=== PATIENT | male | born 1940 | race Caucasian/White ===

== ENCOUNTER 2023-05-27 13:52 | Emergency (ER) | payer OTHER, SELFPAY ==
[2023-05-27 14:01] VITALS: BP 96/66
[2023-05-27 14:19] LABS: % Basophils 0.4 % (0-2); % Eosinophils 0.5 % (0-6); % Immature Granulocytes 0.4 % (0-0.5); % Lymphocytes 13.6 % (20.5-51.1); % Monocytes 7.8 % (1.7-9.3); % Neutrophils 77.3 % (42.2-75.2); Absolute Eosinophils 0.1 10^3/uL (0-0.7); Absolute Lymphocytes 1.2 10^3/uL (1.2-3.4); Absolute Monocytes 0.7 10^3/uL (0.1-0.6); Hematocrit 40.6 % (39.0-52.0); Hemoglobin 13.6 g/dL (13.0-18.0); Mean Corp Hgb Conc. 33.5 g/dL (33.0-37.0); Mean Corpuscular Hgb 31.1 pg (27.0-31.0); Mean Corpuscular Volume 92.9 fL (80.0-94.0); Mean Platelet Volume 10.4 fL (7.4-10.4); Nucleated Red Blood Cells % 0 % (-); Platelet Count 159 10^3/uL (130-400); Red Blood Cell Count 4.37 10^6/uL (4.70-6.10); Red Cell Dist. Width 15.1 % (11.5-14.5); White Blood Cell Count 9.1 10^3/uL (4.8-10.8)
[2023-05-27 14:34] LABS: ALT (SGPT) 66 U/L (0-50); AST (SGOT) 62 U/L (17-59); Alkaline Phosphatase 73 U/L (38-126); Blood Urea Nitrogen 41 mg/dl (9-20); Calcium 9.2 mg/dl (8.4-10.2); Carbon Dioxide 27 mmol/L (22-30); Chloride 104 mmol/L (98-107); Glucose 116 mg/dl (70-99); Potassium 4.6 mmol/L (3.5-5.1); Sodium 137 mmol/L (135-145); Total Bilirubin 0.9 mg/dl (0.2-1.3); Total Protein 7.3 g/dl (6.3-8.2); eGFR 31.23
[2023-05-27 14:40] LABS: Troponin I < 0.012 ng/ml
--- NOTE | 2023-05-27 15:31 | ED.GENMED ---
History of Present Illness
<Jackie Fung PA-C - Last Filed: 05/27/23 18:23>
General
Chief Complaint: Breathing Problem
Source: patient
Exam Limitations: none
Time Seen by Provider: 05/27/23 15:31
Nursing documentation reviewed up to this point in time: agreed with
Travel History
Have you had any contact with someone who has COVID-19?: No
Do you have any symptoms of coronavirus? Fever > 100 degrees, chills, cough, shortness of breath, sore throat, loss of taste or smell, muscle aches, or headache?: No
History of Present Illness
History of Present Illness:
89-year-old male with a past medical history of AAA status post repair, HTN, PAF on Eliquis, pacemaker presenting to the emergency department today with shortness of breath upon exertion, rapid heart rate, and low blood pressure for the past week.
Patient also has associated URI symptoms including cough and congestion. Patient states that he is normally very active and walks frequently, however now just when walking to the car, he feels very short of breath. He denies fevers or chills at
home. He denies syncopal episodes. He also has periods of dizziness that he walks too far. He denies waking up middle night with shortness of breath, leg swelling, chest pain. Patient denies back pain.
Past History
<VINCE Shelton Last Filed: 05/27/23 18:23>
Past History
ED Past Medical History: Arrthythmia (afib), HTN, Hypercholesterolemia and Other (AAA)
ED Past Surgical History: Cardiac (aaa s/p repair;)
Social History
Tobacco: Non-smoker
Alcohol: None
Drug: None
Personal: Single
Living: alone
Review of Systems
<Jackie Fung PA-C - Last Filed: 05/27/23 18:23>
Review of Systems
All Other Systems: ROS reviewed and negative except as documented in HPI and ROS
ABD/GI: Reports no symptoms
Skin: Reports no symptoms
<Isaac Muñiz DO - Last Filed: 05/27/23 16:54>
Review of Systems
Constitutional: Reports fatigue
Respiratory: Reports cough and trouble breathing
Cardiac: Reports no symptoms
Phy Exam
<Jackie Fung PA-C - Last Filed: 05/27/23 18:23>
Physical Exam
Physical Exam:
Vitals: Hypertensive, tachycardic
General: Patient is well-appearing and in no acute distress
Skin: Warm and dry, no rashes or lesions
Cardiac: Tachycardic, otherwise regular rhythm
Pulm: Normal respiratory effort, no wheezes, rales, rhonchi
Abdomen: No abdominal tenderness
Neuro: Awake and alert
<Isaac Muñiz DO - Last Filed: 05/27/23 16:54>
Physical Exam
Physical Exam:
Scores
<Jackie Fung PA-C - Last Filed: 05/27/23 18:23>
Heart Failure Risk
Heart Failure Risk Score: Not Applicable
Course
<Jackie Fung PA-C - Last Filed: 05/27/23 18:23>
Orders/Labs/Results
Orders:
Orders
05/27/23 13:58
ECG [Electrocardiogram (*1)] Urgent
Reason for Study: Shortness of Breath
05/27/23 14:04
Electrocardiogram (*1) Urgent
Reason for Study: Chest Pain
EKG- Treatment ONCE
05/27/23 14:11
Complete Blood Count/With Diff Urgent
Comprehensive Metabolic Panel Urgent
Troponin I Urgent
05/27/23 15:48
CR Chest - 2 Views Urgent
Comment:
Reason For Exam: shortness of breath
05/27/23 15:51
NT-proBNP Urgent
05/27/23 16:43
ECG [Electrocardiogram (*1)] Urgent
Reason for Study: Abnormal EKG
05/27/23 17:19
Electrocardiogram (*1) Urgent
Reason for Study: Other
Other Reason for Exam: pacemaker
05/27/23 17:20
EKG- Treatment ONCE
Abnormal Lab Results
05/27/23
14:11
RBC 4.37 L 10^6/uL
(4.70-6.10)
MCH 31.1 H pg
(27.0-31.0)
RDW 15.1 H %
(11.5-14.5)
Absolute Neuts (auto) 7.0 H 10^3/uL
(1.4-6.5)
Absolute Monos (auto) 0.7 H 10^3/uL
(0.1-0.6)
Neutrophils % 77.3 H %
(42.2-75.2)
Lymphocytes % 13.6 L %
(20.5-51.1)
BUN 41 H mg/dl
(9-20)
Creatinine 2.1 H mg/dL
(0.7-1.3)
Glucose 116 H mg/dl
(70-99)
AST 62 H U/L
(17-59)
ALT 66 H U/L
(0-50)
05/27/23 14:11
05/27/23 14:11
Vital Signs
Initial and Last Documented VS:
Initial Vital Signs
Pulse BP Pulse Ox
105 96/66 99
05/27/23 14:01 05/27/23 14:01 05/27/23 14:01
Last Documented Vital Signs
Pulse Resp BP Pulse Ox
70 19 93/59 99
05/27/23 17:56 05/27/23 17:56 05/27/23 17:56 05/27/23 17:56
<Isaac Muñiz, DO - Last Filed: 05/27/23 16:54>
Orders/Labs/Results
Orders:
Orders
05/27/23 13:58
ECG [Electrocardiogram (*1)] Urgent
Reason for Study: Shortness of Breath
05/27/23 14:04
Electrocardiogram (*1) Urgent
Reason for Study: Chest Pain
EKG- Treatment ONCE
05/27/23 14:11
Complete Blood Count/With Diff Urgent
Comprehensive Metabolic Panel Urgent
Troponin I Urgent
05/27/23 15:48
CR Chest - 2 Views Urgent
Comment:
Reason For Exam: shortness of breath
05/27/23 15:51
NT-proBNP Urgent
05/27/23 16:43
ECG [Electrocardiogram (*1)] Urgent
Reason for Study: Abnormal EKG
05/27/23 17:19
Electrocardiogram (*1) Urgent
Reason for Study: Other
Other Reason for Exam: pacemaker
05/27/23 17:20
EKG- Treatment ONCE
Abnormal Lab Results
05/27/23
14:11
RBC 4.37 L 10^6/uL
(4.70-6.10)
MCH 31.1 H pg
(27.0-31.0)
RDW 15.1 H %
(11.5-14.5)
Absolute Neuts (auto) 7.0 H 10^3/uL
(1.4-6.5)
Absolute Monos (auto) 0.7 H 10^3/uL
(0.1-0.6)
Neutrophils % 77.3 H %
(42.2-75.2)
Lymphocytes % 13.6 L %
(20.5-51.1)
BUN 41 H mg/dl
(9-20)
Creatinine 2.1 H mg/dL
(0.7-1.3)
Glucose 116 H mg/dl
(70-99)
AST 62 H U/L
(17-59)
ALT 66 H U/L
(0-50)
05/27/23 14:11
05/27/23 14:11
Vital Signs
Initial and Last Documented VS:
Initial Vital Signs
Pulse BP Pulse Ox
105 96/66 99
05/27/23 14:01 05/27/23 14:01 05/27/23 14:01
Last Documented Vital Signs
Pulse Resp BP Pulse Ox
70 19 93/59 99
05/27/23 17:56 05/27/23 17:56 05/27/23 17:56 05/27/23 17:56
<Isaac Muñiz DO - Last Filed: 05/27/23 16:54>
MDM/Problems Addressed
Differential Diagnosis Includes:
Heart failure pneumonia pacemaker issue arrhythmia
MDM/Problems Addressed:
Shortness of breath fatigue
Chronic conditions affecting care: Cardiomyopathy and Arrhythmia
Acute Exacerbation and/or Progression of Chronic Illness: Cardiomyopathy and Arrhythmia
<Jackie Fung PA-C - Last Filed: 05/27/23 18:23>
Data Reviewed
Review of Other/Old Records Reveals: Records (Reviewed cardioversion documentation from 04/17/2023) and Discharge Summary (Reviewed discharge summary from 01/04/2020)
<Isaac Muñiz DO - Last Filed: 05/27/23 16:54>
*Radiology
Radiology exam reviewed: preliminary read by ED provider
*Pulse Oximetry
Patient hypoxic: no
*EKG
Interpreted by ED Provider?: Yes
Interpretation: abnormal
Comparison EKG: no comparison EKG present
Heart Rate: 108
Rate: tachycardiac
Rhythm: a-fib
Ischemia: other
*Bibliographic Services Specialist Interpretation
Rate: tachycardiac
Interpretation: abnormal
Heart Rate: 104
*Critical Care Note
Total Time (30-74mins, 75-104mins- exclusive of procedures): 30
comment:
CRITICAL CARE STATEMENT: A total of 40 minutes of critical care time was provided for this patient. This includes management of unstable vital signs, evaluation of the patient at bedside, reviewing the patient's pertinent medical records discussion
with EMS providers and patient's family in addition to discussion with consultants, review of old EKGs and review of pertinent medical records. This time with separate from time utilized to perform the aforementioned documented procedures
<Jackie Fung PA-C - Last Filed: 05/27/23 18:23>
Patient Management
Discussion with other providers: Professional Development Instructor (Dr. Brandon Farias from cardiology)
Escalation/DeEscalation of care consider admission/obs:
This is a 82-year-old male with a past medical history of hypertension, PAF on Eliquis, pacemaker in place, who presents emergency department today with new dyspnea upon exertion and elevated heart rate for the past few days. Patient reports that
this is how he felt in the past when he is went into A-fib. He is very well appearing and his physical exam is unremarkable. His CBC is unremarkable, his chest x-ray was negative. I spoke to Dr. Farias from cardiology who came to see the patient,
and he reprogrammed to his pacemaker to VVIR 70. Dr. Farias reports that patient likely had a slow recurrent atrial tachycardia that developed around a week ago which is likely responsible for symptoms. After the pacemaker was readjusted, I walked
patient throughout the ER and patient no longer had dyspnea with exertion. Patient reports feeling better. Patient stable for discharge and we will send him home with decreasing his metoprolol from 100 mg daily to 50 mg daily. Patient does have a
follow-up with Dr. Morales on June 05
ED Attending Note
<Jackie Fung PA-C - Last Filed: 05/27/23 18:23>
-
Portions of this chart may have been created with voice recognition software.� Occasional wrong word or��sound alike� substitutions may have occurred due to the inherent limitations of voice recognition software.
<Isaac Muñiz DO - Last Filed: 05/27/23 16:54>
ED Attending Note
Patient seen and examined by attending physician: Yes
I performed the substantive portion of visit, reviewed & personally made and approve the management plan that is documented in note by myself or GLORIA.: Yes
ED Attending Note:
82-year-old male history of A-fib status post ablation on Eliquis also pacemaker congestive heart failure presents with fatigue dyspnea on exertion blood pressure is soft, looks pale, afebrile, chest x-ray noted proBNP pending, he tells me he is
felt similarly when he was in A-fib typically gets better after cardioversion EKGs noted will ask cardiology to see him weigh in on what rhythm it is still unclear if he can be interrogated
Discharge Plan
Departure
Patient Disposition: Home (Routine Discharge)
Date of Disposition: 05/27/23
Time of Disposition: 18:03
Patient with high blood pressure during this ER visit?: No
Condition: Good
Discharge Problem:
Encounter for interrogation of cardiac pacemaker, Shortness of breath
Instructions: Shortness of Breath (Dyspnea) (DC), Pacemaker Check, BLOOD PRESSURE
Prescriptions:
New
metoprolol succinate 50 mg tablet extended release 24 hr
50 mg PO DAILY Qty: 20 0RF
No Action
amiodarone 200 mg Tablet
200 mg PO BID
metoprolol succinate 50 mg Tablet Extended Release 24 Hr
100 mg PO DAILY
multivit with min-folic acid 0.4 mg Tablet
1 tab PO DAILY
enalapril maleate [Vasotec] 2.5 mg Tablet
2.5 mg PO DAILY
Eliquis 2.5 mg Tablet
2.5 mg PO BID Qty: 180 3RF
atorvastatin 20 mg Tablet
20 mg PO DAILY
furosemide 20 mg Tablet
20 mg PO DAILY
Referrals:
Santino Lopez MD [Family Provider] -
Activity Restrictions/Additional Instructions:
As discussed, please start taking metoprolol 50 mg once daily rather than 100 mg once daily. You can split the tablets in half, I have also sent 50 mg tablets to your pharmacy.
Please follow up with your retort or condenser press operator.
Please follow up with your PCP.
Please return to the ER should you experience a return of your symptoms, chest pain, or other concerning signs or symptoms.
Interventions
Interventions:
*Risk Screen - Suicide Last Done: 05/27/23 18:13
*General Assessment Last Done: 05/27/23 18:13
*Neglect/Abuse Screening Last Done: 05/27/23 18:13
ED- Fall Risk Assessment Last Done: 05/27/23 18:13
*ED COVID-19 Vaccine History Last Done: 05/27/23 18:13
*Nursing Disposition Last Done: 05/27/23 18:13
ED- Cardiac Assessment Last Done: 05/27/23 15:20
ED- Pulmonary Assessment Last Done: 05/27/23 15:20
[2023-05-27 16:11] VITALS: BP 86/60
[2023-05-27 16:22] LABS: NT-proBNP 8670 pg/ml
--- NOTE | 2023-05-27 16:35 | CON.CAR ---
Consultation
Consultation Request
Date/Time Consultation Requested: 05/27/2023 at 1600
Date/Time Consultation Performed: 05/27/2023 at 1700
Requesting Provider: Roger Yee
Performing Provider: Brandon Farias
Reason for Consultation: Dizziness/lightheadedness
Medical History
-
Chief Complaint: Dizziness, DORSEY, tachycardia
History of Present Illness:
89-year-old man with PMH as listed below now with dyspnea on exertion, dizziness, hypotension and tachycardia for the last 5 to 7 days. He has a history of a PVI in December of this year. He has been managed with amiodarone. He has LV
dysfunction and CKD. He most recently underwent a cardioversion in March. He had an echocardiogram described below in early April, with a decline in his ejection fraction. GDMT is limited by hypotension and CKD. He was doing well until
about a week ago when he noted the onset of dyspnea, dizziness, and tachycardia with a heart rate in the low 100s. He called our office and was referred to the emergency department.
PMH:
Nonischemic cardiomyopathy, EF 30-35% April 2023
paroxysmal atrial fibrillation most recent cardioversion April 2023
Pulmonary vein isolation December 2022
Medtronic pacemaker
CKD
Hypercholesterolemia
Hypertension
Abdominal aortic aneurysm repair 2016
Past Medical History
Past Medical History: Other (See HPI)
Past Surgical History: Other (Pacemaker)
Social History
Tobacco: Former Smoker
Alcohol: Occasional
Drug: None
Personal:
Living: Alone
Employment: Retired
Family History
Family History: Reviewed & Not Pertinent
Allergies / Home Medications
Allergy/AdvReac Type Severity Reaction Status Date / Time
Penicillins Allergy Rash Verified 04/03/23 09:16
Medication Instructions Recorded Confirmed Type
amiodarone 200 mg tablet 200 mg PO BID 06/19/22 04/03/23 History
enalapril maleate 2.5 mg tablet 2.5 mg PO DAILY 06/19/22 04/03/23 History
(Vasotec)
metoprolol succinate 50 mg 100 mg PO DAILY 06/19/22 04/03/23 History
tablet,extended release 24 hr
multivitamin with minerals-folic 1 tab PO DAILY 06/19/22 04/03/23 History
acid 0.4 mg tablet
apixaban 2.5 mg tablet (Eliquis) 2.5 mg PO BID #180 tabs 01/03/23 04/03/23 Rx
atorvastatin 20 mg tablet 20 mg PO DAILY 04/03/23 04/03/23 History
furosemide 20 mg tablet 20 mg PO DAILY 04/03/23 04/03/23 History
Review of Systems
-
All other systems: Negative unless noted
Physical Exam
Vital Signs
Pulse Resp BP Pulse Ox
110 16 86/60 98
05/27/23 16:15 05/27/23 16:15 05/27/23 16:11 05/27/23 16:15
Lab Results
05/27/23 14:11
05/27/23 14:11
Troponin I < 0.012 ng/ml 05/27/23 14:11
Gto-U-Yqexwzbeuez Pept 8670 pg/ml 05/27/23 15:51
Physical Exam
General: No Apparent Distress and Comfortable
HEENT: Normocephalic
Respiratory: Clear
Cardiac: Murmur (Soft systolic murmur, JVD okay)
Musculoskeletal: No Edema
Skin: Warm and Dry
Neuro: AO x 3
Psych: Calm
Impression / Plan
-
Impression:
Slow atrial tachycardia, rate approximately 110 status post PVI and cardioversion
PAF status post PVI December 2022
Pacemaker with max track behavior
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
Pacemaker
Nonischemic cardiomyopathy
Hypertension
Hyperlipidemia
Status post endovascular abdominal aortic aneurysm repair
CKD
Echocardiogram 04/17/2023: EF 25-30% visually, 34% by Renee's method of discs, global hypokinesis, normal RV, pacing wire, normal left atrium, mild MR, MAC, mild AI, mild TR, EF had been 45-50% in May
Sestamibi study 12/05 normal perfusion, EF 25%
Plan:
It seems most likely that he developed a slow recurrent atrial tachycardia about a week or so ago, with his ventricular response 100-110. This likely accounts for his symptoms.
He has follow-up with Dr. Verdin on the .
The plan will be to reprogram his pacemaker to VVIR 70. He will ambulate in the emergency department. If he feels improved and stable he can go home. Otherwise he should be admitted.
I did not prescribe a diuretic. I decrease metoprolol ER from 100 mg daily to 50 mg daily. He will continue enalapril 2.5 mg daily and amiodarone 200 mg twice daily
Presuming he is discharged he can follow-up to Dr. Verdin as planned.
Data Reviewed
-
EKG: Tracing Personally Visualized and interpreted (Possible pacemaker mediated tachycardia)
Radiology: Image Personally Visualized and interpreted (Chest x-ray cardiomegaly, pacemaker)
Labs: Labs Reviewed by me (Hemoglobin 13.6, white count 9.1, BUN/creatinine 41 and 2.1, last creatinine was 1.6, has been 2.1 in the past, proBNP 8670 was 3030 in December, AST is 62, ALT is 66)
Old Records: Reviewed
[2023-05-27 17:00] VITALS: BP 86/63
[2023-05-27 17:56] VITALS: BP 93/59
== END 2023-05-27 18:14 | disposition home or self-care (01) ==
LOC: EMR 13:52
PROVIDERS: Emergency Medicine; Physician Assistant; EMERGENCY PHYSICIAN Emergency Medicine; FAMILY PHYSICIAN Family Medicine; OTHER PHYSICIAN Internal Medicine Cardiovascular Disease
DX: R06.02 Shortness of breath (principal); R42 Dizziness and giddiness; I13.0 Hypertensive heart and chronic kidney disease with heart failure and stage 1 through stage 4 chronic kidney disease, or unspecified chronic kidney disease; I47.19 Other supraventricular tachycardia; I48.0 Paroxysmal atrial fibrillation; I50.23 Acute on chronic systolic (congestive) heart failure; N18.9 Chronic kidney disease, unspecified; R06.09 Other forms of dyspnea; I42.8 Other cardiomyopathies; Z79.01 Long term (current) use of anticoagulants
CPT/HCPCS: 99291; 93280; 71046; 80053; 83880; 84484; 85025; 93005

== ENCOUNTER 2023-07-12 08:23 | Day surgery (SDC) | payer OTHER, SELFPAY ==
[2023-07-02 10:41] VITALS: BMI 26.5
[2023-07-02 11:13] LABS: % Basophils 0.5 % (0-2); % Eosinophils 1.5 % (0-6); % Immature Granulocytes 0.5 % (0-0.5); % Monocytes 7.4 % (1.7-9.3); % Neutrophils 74.1 % (42.2-75.2); Absolute Eosinophils 0.1 10^3/uL (0-0.7); Absolute Lymphocytes 1.3 10^3/uL (1.2-3.4); Absolute Monocytes 0.6 10^3/uL (0.1-0.6); Absolute Neutrophils 6.1 10^3/uL (1.4-6.5); Hematocrit 42.6 % (39.0-52.0); Hemoglobin 13.7 g/dL (13.0-18.0); Mean Corp Hgb Conc. 32.2 g/dL (33.0-37.0); Mean Corpuscular Hgb 30.1 pg (27.0-31.0); Mean Corpuscular Volume 93.6 fL (80.0-94.0); Mean Platelet Volume 10.5 fL (7.4-10.4); Nucleated Red Blood Cells % 0 % (-); Platelet Count 155 10^3/uL (130-400); Red Blood Cell Count 4.55 10^6/uL (4.70-6.10); White Blood Cell Count 8.2 10^3/uL (4.8-10.8)
[2023-07-02 11:23] LABS: INR 1.32; PT 16.2 Sec (11.4-14.6)
[2023-07-02 11:24] LABS: ALT (SGPT) 57 U/L (0-50); AST (SGOT) 67 U/L (17-59); Alkaline Phosphatase 80 U/L (38-126); Blood Urea Nitrogen 29 mg/dl (9-20); Calcium 9.1 mg/dl (8.4-10.2); Carbon Dioxide 25 mmol/L (22-30); Chloride 102 mmol/L (98-107); Estimated Creatinine Clearance 33 ml/min; Glucose 98 mg/dl (70-99); Magnesium 2.3 mg/dl (1.6-2.3); Potassium 4.5 mmol/L (3.5-5.1); Sodium 133 mmol/L (135-145); Total Bilirubin 0.9 mg/dl (0.2-1.3); Total Protein 7.6 g/dl (6.3-8.2); eGFR 37.35
[2023-07-12] VITALS (12 sets, daily range): BP systolic 95–143; BP diastolic 56–92; BMI 25.5
--- NOTE | 2023-07-12 08:33 | W.ICD.CONTRA ---
Post ICD/LODGING FACILITIES MANAGER-D
-
History of DC?: No
LV Function
Left ventricular function study result?: Ejection Fraction </= 35%
ACEI/ARB/ARNI
Patient already on ACEI/ARB/ARNI: Yes
Beta-Beba
Patient already on Beta Beba: Yes
[2023-07-12] MEDS: NSS 500 IV (09:30)
--- NOTE | 2023-07-12 10:12 | PTCARENOTE ---
Bradley Lane, medtronic rep, at pt bedside interrogating pt's device.
[2023-07-12] MEDS: VANCOCIN 300 ML IV (10:32)
[2023-07-12] MEDS: VANCOCIN 300 MG IV (10:32)
--- NOTE | 2023-07-12 10:53 | PTCARENOTE ---
Pt is here for an ICD upgrade. EP lab staff called and stated to start Vancomycin IV. Vancomycin IV started at 1032. EP lab staff asked to decrease rate due to previous pt is taking longer than expected. Call placed to pharmacy to confirm it is ok
to decreased vancomycin rate. Pharmacy staff states ok to decrease rate. Will continue to monitor.
--- NOTE | 2023-07-12 14:45 | PTCARENOTE ---
Rec'd report from Edith Morin in the garden labourer. Rec'd pt AAOx3 w/no c/o CP or SOB. Pt is [place] bilat & doesn't wear hearing aids. Daughter at bedside to assist in answering admission questions. Pt w/new L sided chest wall BIVI-ICD w/pressure dressing
intact w/no signs or symptoms of bleeding or hematoma. Pt's VS stable, w/HR 60, w/pt 100% V-paced on telemetry monitoring. Pt w/call nolan within reach & no addtl needs at this time. Plan of care ongoing.
--- NOTE | 2023-07-12 15:37 | CM ---
Chart reviewed. Patient is independent of ADLS, lives alone in [address]st [address] 0 [address]. Patient is not current with VN, but is interested. Referral sent to [facility]. Plan is for the patient to return home with [facility]. CM to follow
--- NOTE | 2023-07-12 15:42 | ITS.CL.ICD ---
[facility] - ICD
Implantable Cardioverter Defibrillator
Procedure Report:
ICD IMPLANTATION REPORT
Date of Procedure: July 12, 2023
Primary Care Provider: Dr Douglas Lopez
Primary albacore fishing boat crewman: Dr Solitario Verdin
mellowing machine operator: Rajeev Rodarte M.D.
PROCEDURES:
Removal of dual-chamber permanent pacemaker generator
Implantation of LATIN AMERICAN STUDIES PROFESSOR defibrillator
Right Heart Cath
INDICATION FOR PROCEDURE:
Class III [place] [employer] congestive heart failure from heart failure with reduced ejection fraction and declining LV systolic function with transthoracic echocardiogram from April 17, 2023 finding LVEF of 25 to 30%. Etiology of
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
HISTORY: Please refer to office history and physical exam
He underwent PVI on January 02, 2023 for symptomatic persistent atrial fibrillation. During electrophysiologic study on that day he was noted to have marked fractionation and scarring throughout both the left atrium as well as the right atrium.
After ablation electrophysiologic study was able to induce a left atrial tachycardia with modestly isolating cycle length which could not be effectively mapped and targeted for ablation and therefore cardioversion was used to restore sinus
rhythm.Intracardiac echocardiogram found significantly dilated both left and right atria. Despite amiodarone he continued to recur with atrial arrhythmias and required cardioversion in January 2023 and again in March 2023. He remains in a slow
left atrial tachycardia. Left ventricular ejection fraction was noted to be 20% with global hypokinesis. Prior echocardiogram from June 01, 2022 found LVEF of 45 to 50%. Guideline directed medical therapy titration has been limited by both
hypotension and chronic kidney disease. It was felt that persistence of atrial fibrillation played a significant role in decline of his left ventricular systolic function.
Given his decline in LVEF despite maximally tolerated guideline directed medical therapy as well as need for high-frequency right ventricular pacing through his current pacemaker, the decision was made to upgrade dual chamber PPM to LATIN AMERICAN STUDIES PROFESSOR
defibrillator.
His left-sided pacemaker was placed at [facility] in 2013.
After informed consent was obtained, a 'time out' was called and confirmed. The patient was prepped and draped in a sterile fashion.
Right Heart Cath Hemodynamics:
RA: 4 mmHg, RV: 25/3 mmHg, PA: 26/7 mmHg,
PCWP: 8 mmHg, PA sat:83 %
CO:8.6 L/min, CI: 4.2
SVR 573
An incision was made at the left upper chest to both create a new pocket for the ICD and also to access the previously placed dual-chamber permanent pacemaker generator. Lidocaine with epi was used for local anesthesia. The pacemaker was carefully
dissected from the pocket. Then central venous access was obtained via subclavian-axillary venipuncture. Using a Seldinger technique and peel-away sheaths, the pacing leads were placed under fluoroscopic guidance. The right ventricular ICD lead
was placed as per medication list provided.
All questions answered. Next right heart catheterization was performed with results noted above. Next cardiac resynchronization was performed via placement of left bundle branch pacing lead
Fluoroscopy was used to determine likely anatomic site for left bundle branch pacing. The 1000jobboersen.detronic C315 sheath was used to deliver the Medtronic 3830 Selectsecure pacing lead with the helix exposed just exposed from the sheath tip during continuous
monitoring when pacemapping the septum during gentle clockwise rotation to obtain a paced QRS morphology of a W pattern in lead V1. Once the suspected optimal site was identified, lead deployment was performed with several rapid rotations as paced
QRS morphology was intermittently monitored until a paced QRS complex in lead V1 demonstrated development of an R wave (qR).
Unipolar pacing impedance dropped by approximately 200 ohms suggesting it had reached the left ventricular subendocardial.
Stable VEgm injury current is present throughout lead position and at end of case.
Unipolar pacing impedance is 1000 Ohms
Unipolar pacing threshold (tip->prox coil) is stable at 1 V @ 0.4 ms.
The patient had pre-existing wide (paced)QRS complex with duration of 155 ms.
Final conduction system paced QRS complex duration is 110 ms
LVAT is 88 ms and peak V5 -> peak V1 timing is 69 ms
Once testing (see below) showed adequate and stable function, the leads were secured using the suture sleeves. The pocket was liberally irrigated with antibiotic solution. The existing right atrial lead was from the pacemaker generator
and connected to the atrial port on the new ICD generator. The right ventricular lead was from the permanent pacemaker generator and capped. The new ICD lead was attached to the ICD generator as well as the new conduction system pacing
lead and these were secured to the generator. Next the leads and generator were placed within the pocket. Fluoroscopy confirmed stable lead position. The pocket was closed in the typical fashion.
Antibiotic pouch was used
FLUOROSCOPY:
Fluoroscopy was used to guide lead placement. Fluoroscopic exposure 5.8 min and 16.26 mGy, DAP 225
IMPLANTS:
ICD Medtronic [id number], SN RTG [id number] , Left Pectoral
RV Medtronic 6935M, SN TDL [id number] V, mid septum
LBB conduction system lead Medtronic [id number], SN [id number], interventricular septum engaging the left bundle conduction system
RETAINED
RA [facility] 1882 TC, SN CWG [id number]
CAPPED
RV [facility] 2088 TC, SN CAW [id number]
DEVICE TESTING:
Sensing: RA 0.5 (AT), RVicd 5.8 mV
Capture: RA (AT), RV 1 V @ 0.4ms, LV 1 V@ 0.4ms
Ohms: RA 323, RV icd 475, LBB 456 (tip to SVC coil) and 1178 (unipolar)
FINAL PROGRAMMING:
Leobardo Pacing: VVIR 60-130 (LBB pacing only)
Tachy parameters:
VF: 188 bpm, ATP X 1, Shock
COMPLICATIONS:
None
CONCLUSIONS:
- Right heart hemodynamics demonstrate demonstrate well compensated hemodynamic state
- Removal of dual-chamber permanent pacemaker generator
- Implantation of LATIN [employer] STUDIES PROFESSOR defibrillator and leads
RECOMMENDATIONS:
1. Telemetry monitoring, CXR
2. Office wound check in 5-7 days.
3. Continue cardiovascular care with Dr. Verdin
He now has adjunct of cardiac resynchronization therapy in addition to maximally tolerated doses of guideline directed medical therapy for HFrEF.
He remains in left atrial tachycardia and regarding his arrhythmia options include:
- Continued attempts at rhythm control with ablation but repeat EPS and ablation likely is low yield due to his marked atrial myopathy. There can be further up titration of amiodarone and CV
after 30+ days of uninterrupted therapeutic oral anticoagulation (DOAC was briefly held for today's procedure)
-Instead, focus on rate control and allow permanent AT/AF. Rate control options include medical therapy versus or AVN ablation
He and his daughter have been most interested in improving his overall symptoms of heart failure and they wish to allow some time with cardiac resynchronization before making any final decisions on rhythm management.
Copy:
Dr Douglas Lopez
Dr Solitario Verdin
[2023-07-12] MEDS: NSS IV (17:11)
[2023-07-12] MEDS: VASOTEC 2.5 MG PO (17:11)
--- NOTE | 2023-07-12 20:00 | PTCARENOTE ---
report received from previous RN, walking rounds done. pt in chair, AAOx4. VSS. V.paced on monitor, HR 60. POX 100% on room air. left chest incision dressing CDI, left arm immobilizer in place. PRN tylenol given for pain. PIV intact and patent. see
worklist for full assessment, VS, and interventions. pt resting comfortably.
[2023-07-12] MEDS: TYLENOL 650 MG PO (20:02)
[2023-07-12] MEDS: PACERONE 200 MG PO (20:02)
[2023-07-12] MEDS: TOPROL XL 50 MG PO (22:22)
[2023-07-12] MEDS: MELATONIN 10 MG PO (22:24)
[2023-07-13 03:17] VITALS: BP 115/62
--- NOTE | 2023-07-13 03:30 | PTCARENOTE ---
pt VSS, no changes in assessment overnight. AAOx4. V.paced, HR 60's. POX 97% on room air. ICD dressing CDI. AM labs drawn and sent. EKG done. pt sleeping between care.
[2023-07-13] MEDS: NSS IV (03:41)
[2023-07-13 03:45] LABS: Hematocrit 35.4 % (39.0-52.0); Hemoglobin 11.8 g/dL (13.0-18.0); Mean Corp Hgb Conc. 33.3 g/dL (33.0-37.0); Mean Corpuscular Hgb 30.7 pg (27.0-31.0); Mean Corpuscular Volume 92.2 fL (80.0-94.0); Mean Platelet Volume 10.6 fL (7.4-10.4); Platelet Count 143 10^3/uL (130-400); Red Blood Cell Count 3.84 10^6/uL (4.70-6.10); Red Cell Dist. Width 14.9 % (11.5-14.5); White Blood Cell Count 7.1 10^3/uL (4.8-10.8)
[2023-07-13 04:00] LABS: Blood Urea Nitrogen 29 mg/dl (9-20); Calcium 9.2 mg/dl (8.4-10.2); Carbon Dioxide 24 mmol/L (22-30); Chloride 104 mmol/L (98-107); Estimated Creatinine Clearance 41 ml/min; Glucose 98 mg/dl (70-99); Magnesium 2.2 mg/dl (1.6-2.3); Potassium 4.6 mmol/L (3.5-5.1); Sodium 136 mmol/L (135-145); eGFR 46.48
[2023-07-13 07:41] VITALS: BP 130/68
[2023-07-13] MEDS: VASOTEC 2.5 MG PO (08:12)
[2023-07-13] MEDS: PACERONE 200 MG PO (08:12)
[2023-07-13] MEDS: COLACE 100 MG PO (08:12)
[2023-07-13] MEDS: LIPITOR 20 MG PO (08:12)
--- NOTE | 2023-07-13 09:30 | W.PN.CARDCBS ---
Addendum entered and electronically signed by Jarrett Farah DO 07/13/23 12:05:
I saw and examined the patient.
The Shingle Carrier's note was reviewed and I agree with the note.
Comment:
Patient seen and examined. No acute events overnight. Patient resting comfortably. Notes mild site discomfort, no other cp, sob, palpitations, lh, dizziness, or weakness.
NAD, AOX3
S1, S2, RRR, no m/r/g
CTAB, non labored, no w/r/r
SNTND BSx4
L CW Aquacel dressing c/d/i
BL LE no edema
Chronic HFREF withEF 25-30% s/p device upgrade to CRTD with conduction system pacing
Site c/d/i
No PTX on CXR
Continue GDMT, resume eliquis 07/14/23 AM
Instructions and follow-up provided
Stable for DC
Original Note:
Today's Communication / Plan
-
stable for d/c home
Impression / Plan
-
Primary Care Provider: Dr Douglas Lopez
Primary carpet installer: Dr Solitario Verdin
83 yo WM underwent PVI on January 02, 2023 for symptomatic persistent atrial fibrillation. During electrophysiologic study on that day he was noted to have marked fractionation and scarring throughout both the left atrium as well as the right
atrium. After ablation electrophysiologic study was able to induce a left atrial tachycardia with modestly isolating cycle length which could not be effectively mapped and targeted for ablation and therefore cardioversion was used to restore sinus
rhythm.Intracardiac echocardiogram found significantly dilated both left and right atria. Despite amiodarone he continued to recur with atrial arrhythmias and required cardioversion in January 2023 and again in March 2023. He remains in a slow
left atrial tachycardia. Left ventricular ejection fraction was noted to be 20% with global hypokinesis. Prior echocardiogram from June 01, 2022 found LVEF of 45 to 50%. Guideline directed medical therapy titration has been limited by both
hypotension and chronic kidney disease. It was felt that persistence of atrial fibrillation played a significant role in decline of his left ventricular systolic function.
Given his decline in LVEF despite maximally tolerated guideline directed medical therapy as well as need for high-frequency right ventricular pacing through his current pacemaker, the decision was made to upgrade dual chamber PPM to ENDBAND SIZER
defibrillator.
His left-sided pacemaker was placed at [facility] in 2013.
Impression:
Chronic HFrEF 25-30%
Symptomatic persistent Afib prior PVI 12/2022
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
SSS post PPM 2013
HTN
HLD
AAA s/p repair
CKD3b
remote tobacco
Plan:
post removal of [facility] DC PPM generator, implant Medtronic ENDBAND SIZER defibrillator and RHC 07/12/23
well compensated filling pressures, CI 4.2
tele ASVpaced but underlying rhythm slow atrial tach
site stable
CXR no PTX
HF continue enalapril, metoprolol 50mg daily, limited by hypotension and CKD
Hold Eliquis, resume on Sat
Cr stable post venogram 1.5
continue amiodarone 200mg bid
Activity restrictions reviewed
Inc check 1 week
home today
Will discuss with EP his arrhythmia options after giving ENDBAND SIZER therapy and GDMT
He now has adjunct of cardiac resynchronization therapy in addition to maximally tolerated doses of guideline directed medical therapy for HFrEF.
He remains in left atrial tachycardia and regarding his arrhythmia options include:
- Continued attempts at rhythm control with ablation but repeat EPS and ablation likely is low yield due to his marked atrial myopathy. There can be further up titration of amiodarone and CV
after 30+ days of uninterrupted therapeutic oral anticoagulation (DOAC was briefly held for today's procedure)
-Instead, focus on rate control and allow permanent AT/AF. Rate control options include medical therapy versus or AVN ablation
He and his daughter have been most interested in improving his overall symptoms of heart failure and they wish to allow some time with cardiac resynchronization before making any final decisions on rhythm management.
Progress Note - Nutrition Specialist
Subjective
Date of Service: July 13, 2023
no cp, sob, mild inc pain relief with tylenol
Objective
Labs:
07/13/23 03:33
07/13/23 03:33
Labs
Hgb 11.8 g/dL (13.0-18.0) L 07/13/23 03:33
Hct 35.4 % (39.0-52.0) L 07/13/23 03:33
Plt Count 143 10^3/uL (130-400) 07/13/23 03:33
PT 16.2 Sec (11.4-14.6) H 07/02/23 10:56
INR 1.32 07/02/23 10:56
Sodium 136 mmol/L (135-145) 07/13/23 03:33
Potassium 4.6 mmol/L (3.5-5.1) 07/13/23 03:33
BUN 29 mg/dl (9-20) H 07/13/23 03:33
Creatinine 1.5 mg/dL (0.7-1.3) H 07/13/23 03:33
Glucose 98 mg/dl (70-99) 07/13/23 03:33
Vital Signs and I&O:
Vital Signs
Temp Pulse Resp BP Pulse Ox
98.1 F 64 18 115/62 98
07/13/23 07:04 07/13/23 03:17 07/13/23 07:04 07/13/23 03:17 07/13/23 07:04
Vital Signs
Temp Pulse Resp BP Pulse Ox
98.1 F 64 18 115/62 98
07/13/23 07:04 07/13/23 03:17 07/13/23 07:04 07/13/23 03:17 07/13/23 07:04
Intake & Output
0307/12/23 07/13/23 07/14/23
06:59 06:59 06:59 06:59
Intake Total 1209 / 0
Balance 1209
Physical Exam
Physical Exam
NAD, AOX3
S1, S2, RRR
CTAB, non labored
SNTND BSx4
L CW Aquacel dressing c/d/i, pressure dressing removed
--- NOTE | 2023-07-13 10:52 | CM ---
Chart reviewed. Patient is independent of ADLS, lives alone in a 1st floor apartment, [address], 0 DME. Plan is for the patient to return home with VN.
[2023-07-13 10:56] VITALS: BP 115/68
--- NOTE | 2023-07-13 12:15 | W.DS.TRANS ---
Addendum entered and electronically signed by NIKOLAY Olguin 07/17/23 09:44:
NO NEW MED CHANGES AT DC
Original Note:
DC Summary - New Car Inspector
-
Discharge Instructions:
Sleep Apnea Risk Intermediate
Discharge Diagnosis/Procedures Biv ICD upgrade
Diet Low Cholesterol,2 Gram Sodium
Driving Restrictions No driving for 1 week
Bathing Restrictions OK to Shower
Specialty Instructions Weigh Daily
Instructions:
Stand-Alone Forms: DC Inst - Implanted Device
Changes to Home Medications: Yes
Discharge Medications:
DC Medications w/original date entered in ufindads
amiodarone 200 mg tablet 200 mg PO BID 06/19/22
enalapril maleate 2.5 mg tablet (Vasotec) 2.5 mg PO DAILY 06/19/22
apixaban 2.5 mg tablet (Eliquis) 2.5 mg PO BID #180 tabs 01/03/23
atorvastatin 20 mg tablet 20 mg PO DAILY 04/03/23
metoprolol succinate 50 mg tablet,extended release 24 hr 50 mg PO HS 06/27/23
docusate sodium 100 mg capsule (Stool Softener) 100 mg PO DAILY 07/12/23
melatonin 10 mg tablet 10 mg PO HS 07/12/23
multivitamin 1 tab PO DAILY 07/12/23
Home Medication Changes
Pending Results: No
--- NOTE | 2023-07-13 14:00 | PTCARENOTE ---
Pt oob ad chris in the room. Left chest incision site clean and dry with aquacell intact. Pt denies any pain or discomfort. Pt discharged to home with his daughter. Discharge instructions given and reviewed with good understanding.
== END 2023-07-13 14:19 | disposition home or self-care (01) ==
LOC: CATH 08:23
PROVIDERS: Nurse Practitioner Adult Health; ATTENDING PHYSICIAN Internal Medicine Cardiovascular Disease; FAMILY PHYSICIAN Family Medicine; OTHER PHYSICIAN Internal Medicine Cardiovascular Disease
DX: I13.0 Hypertensive heart and chronic kidney disease with heart failure and stage 1 through stage 4 chronic kidney disease, or unspecified chronic kidney disease (principal); I48.19 Other persistent atrial fibrillation; N18.32 Chronic kidney disease, stage 3b; I50.22 Chronic systolic (congestive) heart failure; I42.8 Other cardiomyopathies; I71.40 Abdominal aortic aneurysm, without rupture, unspecified; Z98.890 Other specified postprocedural states; Z87.891 Personal history of nicotine dependence; Z79.01 Long term (current) use of anticoagulants; N18.30 Chronic kidney disease, stage 3 unspecified; E78.5 Hyperlipidemia, unspecified; I49.5 Sick sinus syndrome; I47.19 Other supraventricular tachycardia; Z88.0 Allergy status to penicillin; Z79.899 Other long term (current) drug therapy; Z45.010 Encounter for checking and testing of cardiac pacemaker pulse generator [battery]
CPT/HCPCS: 33249; 33233; 36415; 71045; 80048; 80053; 83735; 85025; 85027; 85610; 93005; 93451; C1769; C1777; C1882; C1892; C1898; Q9967

== ENCOUNTER → 2023-07-30 06:47 | Outpatient (REF) | payer OTHER, SELFPAY | LOC: RAD 06:47 | PROVIDERS: ATTENDING PHYSICIAN Internal Medicine Cardiovascular Disease; FAMILY PHYSICIAN Family Medicine | DX: I71.40 Abdominal aortic aneurysm, without rupture, unspecified (principal) | CPT/HCPCS: 76770 ==

== ENCOUNTER 2023-10-02 15:57 | Outpatient (RCR) | payer OTHER, SELFPAY | END 2023-10-02 23:59 | disposition home or self-care (01) | LOC: CRHB 15:57 | PROVIDERS: ATTENDING PHYSICIAN Internal Medicine Cardiovascular Disease | DX: I50.22 Chronic systolic (congestive) heart failure (principal) | CPT/HCPCS: G0422 ==

== ENCOUNTER → 2023-10-22 09:18 | Outpatient (REF) | payer OTHER, SELFPAY | LOC: RCS 09:18 | PROVIDERS: ATTENDING PHYSICIAN Internal Medicine Cardiovascular Disease; FAMILY PHYSICIAN Family Medicine | DX: I42.8 Other cardiomyopathies (principal) | CPT/HCPCS: 93005; 93306 ==

== ENCOUNTER 2023-11-09 09:44 | Outpatient (RCR) | payer OTHER, SELFPAY | END 2023-11-09 23:59 | disposition home or self-care (01) | LOC: CRHB 09:44 | PROVIDERS: ATTENDING PHYSICIAN Internal Medicine Cardiovascular Disease | DX: I50.22 Chronic systolic (congestive) heart failure (principal) | CPT/HCPCS: G0422; G0423 ==

== ENCOUNTER 2023-12-14 10:27 | Outpatient (RCR) | payer OTHER, SELFPAY | END 2023-12-14 23:59 | disposition home or self-care (01) | LOC: CRHB 10:27 | PROVIDERS: ATTENDING PHYSICIAN Internal Medicine Cardiovascular Disease; FAMILY PHYSICIAN Family Medicine | DX: I50.22 Chronic systolic (congestive) heart failure (principal) | CPT/HCPCS: G0422; G0423 ==

== ENCOUNTER 2024-01-07 10:46 | Outpatient (RCR) | payer OTHER, SELFPAY ==
[2024-01-08 09:13] LABS: HDL Cholesterol 34 mg/dl; LDL Cholesterol, Calculated 70 mg/dl; Total Cholesterol 133 mg/dl (50-199); Triglyceride 146 mg/dl (10-149); Very Low Density Lipoprotein 29 mg/dl (0-30)
== END 2024-01-10 08:49 | disposition home or self-care (01) ==
LOC: CRHB 10:46
PROVIDERS: ATTENDING PHYSICIAN Internal Medicine Cardiovascular Disease; FAMILY PHYSICIAN Family Medicine
DX: I50.22 Chronic systolic (congestive) heart failure (principal)
CPT/HCPCS: 36415; 80061; G0422; G0423

== ENCOUNTER 2024-01-15 05:56 | Day surgery (SDC) | payer OTHER, SELFPAY ==
[2024-01-08 08:22] VITALS: BMI 25.6
[2024-01-08 09:45] LABS: % Basophils 0.7 % (0-2); % Eosinophils 1.3 % (0-6); % Immature Granulocytes 0.1 % (0-0.5); % Monocytes 8.3 % (1.7-9.3); % Neutrophils 75.6 % (42.2-75.2); Absolute Basophils 0.1 10^3/uL (0-0.2); Absolute Eosinophils 0.1 10^3/uL (0-0.7); Absolute Lymphocytes 0.9 10^3/uL (1.2-3.4); Absolute Monocytes 0.6 10^3/uL (0.1-0.6); Absolute Neutrophils 5.1 10^3/uL (1.4-6.5); Hematocrit 40.3 % (39.0-52.0); Hemoglobin 13.1 g/dL (13.0-18.0); Mean Corp Hgb Conc. 32.5 g/dL (33.0-37.0); Mean Corpuscular Hgb 31.5 pg (27.0-31.0); Mean Corpuscular Volume 96.9 fL (80.0-94.0); Mean Platelet Volume 11.1 fL (7.4-10.4); Nucleated Red Blood Cells % 0 % (-); Platelet Count 153 10^3/uL (130-400); Red Blood Cell Count 4.16 10^6/uL (4.70-6.10); Red Cell Dist. Width 14.9 % (11.5-14.5); White Blood Cell Count 6.7 10^3/uL (4.8-10.8)
[2024-01-08 09:57] LABS: INR 1.18; PT 14.9 Sec (11.4-14.6)
[2024-01-08 10:16] LABS: ALT (SGPT) 84 U/L (0-50); AST (SGOT) 116 U/L (17-59); Albumin 3.8 g/dl (3.5-5.0); Alkaline Phosphatase 83 U/L (38-126); Blood Urea Nitrogen 21 mg/dl (9-20); Calcium 9.2 mg/dl (8.4-10.2); Carbon Dioxide 28 mmol/L (22-30); Chloride 102 mmol/L (98-107); Estimated Creatinine Clearance 43 ml/min; Glucose 96 mg/dl (70-99); Magnesium 2.2 mg/dl (1.6-2.3); Potassium 5.1 mmol/L (3.5-5.1); Sodium 140 mmol/L (135-145); Total Bilirubin 0.8 mg/dl (0.2-1.3); eGFR 50.49
[2024-01-15] VITALS (12 sets, daily range): BP systolic 123–153; BP diastolic 56–75; BMI 24.5
[2024-01-15 08:52] LABS: ACT-LR - POC 289 Seconds (116-155)
[2024-01-15 09:16] LABS: ACT-LR - POC 322 Seconds (116-155)
--- NOTE | 2024-01-15 10:37 | ITS.CL.ABL ---
Technology Applications Teacher - Ablation
Ablation
Procedure Report:
ELECTROPHYSIOLOGIC STUDY AND POSSIBLE ABLATION
DATE: January 15, 2024
Primary Care Provider: Subha Lopez MD
Primary testing and regulating chief: Dr Donte Verdin
INDICATION:
Symptomatic Atrial Fibrillation.
Paroxysmal atrial fibrillation and atrial tachycardia
HISTORY: See H and P.
Symptomatic AF, poorly controlled with attempted medical therapy.
At his prior EP study and ablation January 02, 2023 he was found to have marked biatrial cardiomyopathy. He underwent PVI as well as mapping and ablation of a Micra reentrant atrial tachycardia just outside and anterior septal to the right
superior pulmonary vein ostium.
On July 12, 2023 he underwent removal of dual-chamber permanent pacemaker and implantation of cardiac resynchronization defibrillator given his heart failure with reduced ejection fraction, LVEF of 25 to 30%, [place] heart association class III
despite guideline directed medical therapy.
He has recurred with symptomatic atrial tachycardia which has been persistent despite increasing dose amiodarone.
Most recent echocardiogram finds LVEF 35%.
HAS-BLED: 3
Age
Abnormal Renal Function
Abnormal Liver Function
CHADSVASc:
CHADSVASc: 4
CHF, NYHA Class 3, LVEF 30%
HTN
Age
PRESENTING RHYTHM: Interrogation of his Medtronic HONING MACHINE OPERATOR TOOL defibrillator finds he is programmed VVIR. He does have an atrial rhythm, bradycardic atrial rhythm with rate of approximately 30 bpm.
HISTORY: See H and P.
Symptomatic AF, poorly controlled with attempted medical therapy.
ANTIARRHYTHMIC DRUG: amiodarone
ANTICOAGULATION: Eliquis renally dosed at 2.5 mg twice daily
'TIME-OUT': called and confirmed.
SEDATION/ANESTHESIA: provided via the anesthesia department using general anesthesia.
PROCEDURE:
Ultrasound Guidance performed by de was utilized for femoral venous Vascular Access b/l.
A decapolar CS catheter was placed within the CS for mapping and pacing.
The intracardiac ultrasound catheter was positioned in the RA for continuous intracardiac ultrasound imaging.
Heparin bolus and infusion to target ACT at 300 -350 seconds was administered. Transseptal puncture was performed. This entailed advancing a sheath with dilator into the superior vena cava and withdrawing both (monitoring intracardiac ultrasound,
fluoroscopy and tip pressure) with the tip oriented toward the atrial septum. The fossa ovalis was engaged (indicated by sudden displacement of the sheath tip as well as tenting of the fossa seen on intracardiac ultrasound).
AcInformed Tr[employer]ross transseptal system was used. Left atrial catheter position was confirmed by echocardiographic imaging, pressure monitoring (LA mean pressure 10 mm Hg) and fluoroscopy. The sheath was advanced over the dilator and positioned in the left
atrium.
The multipolar mapping catheter was initially positioned through the transseptal sheath for high density mapping.
Geometry and voltage mapping was performed using the Brille24 multipolar grid catheter. Navex was utilized for three-dimensional electroanatomical mapping.
A 3-D map was created using NetDragon in Voxel mode. This demonstrated marked electrical fractionation similar to what was seen in 2022. There is electrical isolation at an ostial level at the left inferior, right superior and right inferior
pulmonary vein. There is reconnection at the left superior pulmonary vein towards its anterior superior quadrant.
Programmed electrical stimulation is able to induce an atrial tachycardia at cycle length of 580 ms. Extensive high density activation mapping was performed. The entire cycle length exist within the left atrium. Mapping suggests reentrant left
atrial tachycardia with slowest areas of activation at the dome anteriorly just outside the ostium of the left atrial appendage and anterior and septal to the ostium of the right superior pulmonary vein.
Ablation strategy included reisolation of the left superior pulmonary vein which was accomplished using Long Play Pulse Select PFA catheter and system. Additional ablation lesion set was done at the antrum of the left superior pulmonary vein to
extend ablation to a wide area circumferential ablation lesion set. Second tachycardia, the reentrant atrial tachycardia was targeted at areas of slow conduction with pulse field energy being delivered initially just outside the ostium of the left
atrial appendage anteriorly without effect on the tachycardia. Ablation was then moved to the second area of slow conduction just anterior and septal to the ostium of the right superior pulmonary vein with ablation terminating the atrial
tachycardia. Programmed electrical stimulation was then unable to induce any sustained arrhythmias, however nonsustained clinical atrial tachycardia could be induced, up to 10-15 beats. Additional ablation was performed at the area which
terminated the tachycardia. Programmed electrical stimulation could still induce nonsustained atrial tachycardia but no sustained arrhythmias.
At the end of the study there is electrical isolation of each PV ostia (LSPV, LIPV, RSPV, RIPV) with additional ablation lesion set resulting in wide area circumferential ablation.
The second tachycardia was successfully mapped and ablated rendering it noninducible (post ablation only inducible short nonsustained runs).
Interrogation and reprogramming of Medtronic HONING MACHINE OPERATOR TOOL defibrillator.
At the beginning of the study detections were programmed off.
At the end of the study fluoroscopy demonstrated no change in fluoroscopic appearance of the leads. The device was once again interrogated and found to have stable function. ICD detections and therapies were programmed on. Additionally pacing was
reprogrammed from VVIR to DDDR.
I.C.E. :
Pre-Ablation Post-Ablation
LVEF: 55 % 55 %
WMA: none none
Pericardial effusion: Trivial posterior Trivial posterior
COMPLICATIONS:
None
SUMMARY:
- Mapping and ablation to isolate the PVs (Re-isolation at ostium of LSPV)
- Additional AF ablation set after PVI (WACA).
- Mapping and ablation of second tachycardia (LA microreentrant tachycardia)
- Interrogation and reprogramming of HONING MACHINE OPERATOR TOOL defibrillator (Medtronic [id number])
- 3-D Electroanatomical Mapping
- Intracardiac Ultrasound
Post ablation, I discussed today's findings and results with the patient's daughter, Samina.
RECOMMENDATIONS:
- Observe in monitored bed.
- Maintain oral anticoagulation.
- Reduce amiodarone from 200 mg twice daily to 200 mg once daily
As an outpatient there can be consideration for discontinuation of amiodarone if he demonstrates maintenance of sinus rhythm at his 3-month follow-up.
Of note however he does have marked biatrial fractionation and recurrence of an atrial arrhythmia is not unlikely.
- Pacing was reprogrammed from VVIR to DDDR now that he is in sinus rhythm.
- Continue metoprolol succinate 50 mg daily
- Office visit with me in 3 months.
- Continue cardiovascular care with Dr Donte Verdin
Copy to:
Subha Lopez MD
Dr Donte Verdin
--- NOTE | 2024-01-15 13:50 | W.PN.UPDATE ---
Update Note
Progress Note Update
Pt seen post PFA. Right groin site without ht/bleeding, non tender. OOB abulating. Post EKG AVPaced, underlying sinus rhythm. Resume eliquis this evening. Will decrease amiodarone to 200mg daily. Followup with Dr. Morales as scheduled. Home today if
groin site/tele remain stable.
[2024-01-15] MEDS: TYLENOL 650 MG PO (14:47)
== END 2024-01-15 15:12 | disposition home or self-care (01) ==
LOC: CATH 05:56
PROVIDERS: ATTENDING PHYSICIAN Internal Medicine Cardiovascular Disease; FAMILY PHYSICIAN Family Medicine; OTHER PHYSICIAN Internal Medicine Cardiovascular Disease
DX: I48.0 Paroxysmal atrial fibrillation (principal); I47.19 Other supraventricular tachycardia; I13.0 Hypertensive heart and chronic kidney disease with heart failure and stage 1 through stage 4 chronic kidney disease, or unspecified chronic kidney disease; I50.22 Chronic systolic (congestive) heart failure; N18.30 Chronic kidney disease, stage 3 unspecified; I42.9 Cardiomyopathy, unspecified; E78.5 Hyperlipidemia, unspecified; Z87.891 Personal history of nicotine dependence; Z79.01 Long term (current) use of anticoagulants
CPT/HCPCS: C1732; C1894; C1733; C1769; C1730; C1892; C1759; 36415; 80053; 83735; 85025; 85347; 85610; 86850; 86900; 86901; 93005; 93287; 93655; 93656; 93657

== ENCOUNTER 2024-05-06 14:36 | Inpatient (IN) | payer OTHER, SELFPAY ==
[2024-05-06] VITALS (12 sets, daily range): BP systolic 60–140; BP diastolic 50–70; BMI 23.8
[2024-05-06 11:18] LABS: % Basophils 0.6 % (0-2); % Eosinophils 0.9 % (0-6); % Immature Granulocytes 0.3 % (0-0.5); % Lymphocytes 13.4 % (20.5-51.1); % Monocytes 7.3 % (1.7-9.3); % Neutrophils 77.5 % (42.2-75.2); Absolute Basophils 0.1 10^3/uL (0-0.2); Absolute Eosinophils 0.1 10^3/uL (0-0.7); Absolute Lymphocytes 1.4 10^3/uL (1.2-3.4); Absolute Monocytes 0.8 10^3/uL (0.1-0.6); Absolute Neutrophils 8.2 10^3/uL (1.4-6.5); Hematocrit 37.2 % (39.0-52.0); Hemoglobin 11.9 g/dL (13.0-18.0); Mean Corpuscular Hgb 29.6 pg (27.0-31.0); Mean Corpuscular Volume 92.5 fL (80.0-94.0); Mean Platelet Volume 10.9 fL (7.4-10.4); Nucleated Red Blood Cells % 0 % (-); Platelet Count 168 10^3/uL (130-400); Red Blood Cell Count 4.02 10^6/uL (4.70-6.10); Red Cell Dist. Width 14.1 % (11.5-14.5); White Blood Cell Count 10.6 10^3/uL (4.8-10.8)
[2024-05-06 11:41] LABS: ALT (SGPT) 32 U/L (0-50); AST (SGOT) 73 U/L (17-59); Albumin 3.4 g/dl (3.5-5.0); Alkaline Phosphatase 101 U/L (38-126); Blood Urea Nitrogen 23 mg/dl (9-20); Calcium 8.6 mg/dl (8.4-10.2); Carbon Dioxide 26 mmol/L (22-30); Chloride 103 mmol/L (98-107); Glucose 114 mg/dl (70-99); Potassium 3.8 mmol/L (3.5-5.1); Sodium 139 mmol/L (135-145); Total Bilirubin 0.7 mg/dl (0.2-1.3); Total Protein 7.3 g/dl (6.3-8.2); eGFR 55.19
[2024-05-06 11:42] LABS: NT-proBNP 709 pg/ml; Troponin I < 0.012 ng/ml
--- NOTE | 2024-05-06 12:50 | ED.GENMED ---
History of Present Illness
General
Chief Complaint: Breathing Problem
Source: patient and family
Time Seen by Provider: 05/06/24 11:42
History of Present Illness
History of Present Illness:
83-year-old male with past medical history of atrial fibrillation, CHF, hypertension, hyperlipidemia, chronic kidney disease status post AAA repair and pacemaker placement presenting to the emergency department for evaluation of worsening shortness
of breath noting he only feels short of breath with exertion as well as when laying completely flat that has been worsening despite increasing his Lasix at request of his financial systems administrator this past Sunday, and Sunday. Patient notes no other
symptoms including fevers, chills, rigors, cough, chest pain, palpitations, pleurisy, lower extremity edema, abdominal pain or any other concerns. Patient denies any recent travel or known sick contacts. Patient otherwise reports good compliance
with his usual medications.
Past History
Past History
ED Past Medical History: Arrthythmia (afib), CHF, HTN, Hypercholesterolemia, Renal failure, Valvular disease and Other (AAA)
ED Past Surgical History: Cardiac (aaa s/p repair;) and Other
Social History
Tobacco: Former smoker (Quit in 1987)
Alcohol: None
Drug: None
Personal:
Living: alone
Review of Systems
Review of Systems
All Other Systems: ROS reviewed and negative except as documented in HPI and ROS
Phy Exam
Physical Exam
Physical Exam:
GENERAL: Alert , in no apparent distress
EYE: conjunctiva clear
NECK: Supple
ENT: o/p clr, mmm.
CARDIAC: Regular rate and rhythm
LUNGS: Significantly diminished sounds right mid to lower lung zones posteriorly, remaining lung is clear to auscultation, no wheezing or rhonchi, no accessory muscle use or respiratory distress
NEUROLOGICAL: Alert and oriented
SKIN: Warm and dry, skin intact.
MUSCULOSKELETAL: well perfused.
PSYCH: Normal and appropriate interaction.
Scores
Heart Failure Risk
Heart Failure Risk Score: Not Applicable
Heart Score for Chest Pain Patients
STEMI patient?: Not applicable
Withdrawal Assessment of Alcohol
Withdrawal Assessment Completed?: Not applicable
Course
Orders/Labs/Results
Orders:
Orders
05/06/24 11:01
Electrocardiogram (*1) Urgent
Reason for Study: Chest Pain
EKG- Treatment ONCE
05/06/24 11:08
BNP [NT-proBNP] Urgent
Complete Blood Count/With Diff Urgent
Comprehensive Metabolic Panel Urgent
LDH Urgent
Comment: ADDON
Troponin I Urgent
05/06/24 11:50
CR Chest - 2 Views Urgent
Comment:
Reason For Exam: SOB
05/06/24 12:40
CefTRIAXone [Rocephin] 1,000 mg IV NOW STA
Doxycycline [Vibramycin] 100 mg PO NOW STA
05/06/24 13:09
COVID-19 Antigen Urgent
Source: Nasal Swab
Influenza A+B Rapid Molecular Urgent
COLT Source: Nasal Swab
Specimen Description:
05/06/24 14:17
[facility] CONSULT Routine
Consulting Provider: Marcus Warner
Was physician already notified: Yes
Reason for Consult/Procedure: Dx/Tx thoracentesis, Right lung
Acknowledgement that appropriate orders are entered: Yes
05/06/24 14:19
Add On- LAB Routine
Tests Added?: Serum protein, LDH
05/06/24 14:20
Code Status As Directed
Resuscitation Status: Full Code
Bisacodyl [Dulcolax] 10 mg RECTAL [id number] PRN
Docusate W/Senna [Senokot-S] 1 tablet PO BIDPRN PRN
Polyethylene Glycol Powder [Miralax] 17 grams PO DAILYPRN PRN
Activity As Directed
Activity Level: Out of Bed-Early Mobility
Intake/ Output As Directed
Frequency: q12h
Pneumatic Compression Sleeves As Directed
Type: Knee high
Vital Signs As Directed
Frequency: Per unit guidelines
Weight As Directed
Frequency: Daily
DX Deep Vein Thrombosis Video Routine
05/06/24 14:21
Admit/Transfer Patient As Directed
Co-Sign Provider:
Level of Care: Inpatient admission
Assign to:: Telemetry
Physician / Group: Hema Renee
Diagnosis: R pleural effusion
Reason for Telemetry: Arrhythmia
Date to Stop Telemetry: 05/09/24
Time to Stop Telemetry: 11:00
Reason for Hospitalization: Evaluation for new right pleural effusion with cytology and fluid studies
Expected length of stay greater than two midnights?: Yes
ELOS- Estimated Length of Stay in days: 3
I certify the patient meets the requirements for IP care: Yes
PRN Pain Medication Management As Directed
May give lesser potent ordered pain med per pt: Yes
preference::
Protocol:: Medication orders for pain may be administered in a
manner that supports deferring to patient preference
when the pt is:
- Requesting an ordered lesser potent pain medication.
Least to most potent pain medications are defined
as: acetaminophen < NSAID < tramadol < opioids
(morphine, oxycodone, hydromorphone).
- Requesting a lesser dose of the same medication IF
ORDERED.
- Requesting a less intrusive route of administration
if both routes are prescribed by the provider (PO <
IV).
05/06/24 Dinner
Regular
At Your Request: Limited Participation
Does patient need a safe tray?: No
05/06/24 15:21
Body Fluid Glucose Routine
Fluid Source: Pleural
Date Specimen was Collected: 05/06/24
Time Specimen was Collected: 15:18
Comment: right thoracentesis
Body Fluid LDH Routine
Fluid Source: Pleural
Date Specimen was Collected: 05/06/24
Time Specimen was Collected: 15:18
Comment: right thoracentesis
Body Fluid Protein Routine
Fluid Source: Pleural
Date Specimen was Collected: 05/06/24
Time Specimen was Collected: 15:18
Comment: right thoracentesis
Body Fluid pH Routine
Fluid Source: Pleural
Date Specimen was Collected: 05/06/24
Time Specimen was Collected: 15:18
Comment: right thoracentesis
Fluid Culture with Gram Stain Routine
COLT Source: Pleural Fluid
Specimen Description:
Date Specimen was Collected: 05/06/24
Time Specimen was Collected: 15:18
Comment: right thoracentesis
05/06/24 18:00
Docusate Sodium [Colace] 100 mg PO QPM
05/06/24 22:00
Melatonin 10 mg PO HS
Metoprolol Xl [Toprol Xl] 25 mg PO HS
05/07/24 06:00
Complete Blood Count/With Diff IN AM
Comprehensive Metabolic Panel IN AM
LDH IN AM
Protein [Total Protein] IN AM
05/07/24 08:00
Atorvastatin [Lipitor] 20 mg PO DAILY
Furosemide [Lasix] 20 mg PO DAILY
05/09/24 11:00
DC Protocol for Telemetry ONCE
Abnormal Lab Results
05/06/24
11:08
RBC 4.02 L 10^6/uL
(4.70-6.10)
Hgb 11.9 L g/dL
(13.0-18.0)
Hct 37.2 L %
(39.0-52.0)
MCHC 32.0 L g/dL
(33.0-37.0)
MPV 10.9 H fL
(7.4-10.4)
Absolute Neuts (auto) 8.2 H 10^3/uL
(1.4-6.5)
Absolute Monos (auto) 0.8 H 10^3/uL
(0.1-0.6)
Neutrophils % 77.5 H %
(42.2-75.2)
Lymphocytes % 13.4 L %
(20.5-51.1)
BUN 23 H mg/dl
(9-20)
Glucose 114 H mg/dl
(70-99)
AST 73 H U/L
(17-59)
Albumin 3.4 L g/dl
(3.5-5.0)
05/06/24 11:08
05/06/24 11:08
Vital Signs
Initial and Last Documented VS:
Initial Vital Signs
Temp Pulse Resp BP Pulse Ox
97.9 F 64 18 121/63 97
05/06/24 10:57 05/06/24 10:57 05/06/24 10:57 05/06/24 10:57 05/06/24 10:57
Last Documented Vital Signs
Temp Pulse Resp BP Pulse Ox
97.5 F 68 18 138/70 100
05/06/24 16:11 05/06/24 16:11 05/06/24 16:11 05/06/24 16:11 05/06/24 16:11
MDM/Problems Addressed
Differential Diagnosis Includes:
Pleural effusion, pneumonia, malignancy, CHF valvular dysfunction, cardiac dysrhythmia
MDM/Problems Addressed:
83-year-old male presenting emergency department for evaluation of gradually worsening shortness of breath and exertional dyspnea and orthopnea. Patient temporarily increased his Lasix last week but without any relief of symptoms. He does have
abnormal right lower lung field sickle exam findings and does also have some mild lower extremity nonpitting edema. Labs initiated in triage are all mostly reassuring. Will add on a pacemaker interrogation, chest x-ray and once resulted will
discuss with cardiology who sent patient to the ER for further evaluation. Disposition pending
Chronic conditions affecting care: Arrhythmia and Other (Congestive heart failure)
Acute Exacerbation and/or Progression of Chronic Illness: Arrhythmia
*Radiology
Radiology exam reviewed: preliminary read by ED provider (Moderate to large right sided pleural effusion)
*Pulse Oximetry
Patient hypoxic: no
*EKG
Heart Rate: 60
Rate: normal
Rhythm: av sequential
*Sanitary Napkin Machine Tender Interpretation
Rate: normal
Rhythm: av sequential
*Critical Care Note
Total Time (30-74mins, 75-104mins- exclusive of procedures): Not Applicable
Data Reviewed
Review of Other/Old Records Reveals: Labs, Records and Radiology Studies
Patient Management
Discussion with other providers: Hospitalist and Forestry Instructor
Escalation/DeEscalation of care consider admission/obs:
Patient's chest x-ray shows a moderate to large right-sided pleural effusion. Unclear if infectious versus volume overload versus underlying malignancy. Will cover for possible infectious etiology with Rocephin and doxycycline. I notified
patient's financial systems administrator who sent patient to the ER and they will see in consult. Hospitalist team accepts for continued evaluation and treatment.
ED Attending Note
-
Portions of this chart may have been created with voice recognition software.� Occasional wrong word or��sound alike� substitutions may have occurred due to the inherent limitations of voice recognition software.
Discharge Plan
Departure
Patient Disposition: Admit
Date of Disposition: 05/06/24
Time of Disposition: 12:50
Presentation/result/management discussed w/ accepting MD/DO: Hospitalist
Discharge Problem:
Pleural effusion on right, Shortness of breath
Interventions
Interventions:
*Risk Screen - Suicide Last Done: 05/06/24 16:35
*General Assessment Last Done: 05/06/24 10:57
*Neglect/Abuse Screening Last Done: 05/06/24 11:58
ED- Fall Risk Assessment Last Done: 05/06/24 11:58
*ED COVID-19 Vaccine History Last Done: 05/06/24 10:57
*Nursing Disposition Last Done: 05/06/24 15:56
ED- Cardiac Assessment Last Done: 05/06/24 11:58
ED- Pulmonary Assessment Last Done: 05/06/24 11:58
Discharge Date and Time
Discharge Date/Time: 05/06/24 15:57
[2024-05-06] MEDS: VIBRAMYCIN 100 MG PO (13:06)
[2024-05-06 13:33] LABS: COVID-19 Antigen Negative (Negative)
[2024-05-06] MEDS: ROCEPHIN 1000 MG IV (13:36)
--- NOTE | 2024-05-06 13:53 | CON.CAR ---
Addendum entered and electronically signed by Donte Verdin MD 05/06/24 17:36:
I saw and examined the patient.
The Telegraph Operator's note was reviewed and I agree with the note.
Comment: Briefly, 83-year-old man past medical history of heart failure with reduced ejection fraction, nonischemic cardiomyopathy (LVEF 35%) and persistent atrial tachycardia/atrial fibrillation who presents with several weeks of progressively
worsening dyspnea found to have pleural effusion on chest x-ray.
Underwent thoracentesis earlier today with some improvement in his dyspnea.
Etiology is unclear, await fluid studies.
CHF is possible however he does not appear grossly volume overloaded on exam, proBNP is not significantly elevated and weights have been stable.
Okay to continue home oral Lasix for now and monitor renal function and symptoms
Check echo in a.m.
Discussed with patient's daughter at bedside
Original Note:
Consultation
Consultation Request
Date/Time Consultation Requested: 05/06/2024
Date/Time Consultation Performed: 05/06/2024
Requesting Provider: Tay Burch PA-C
Performing Provider: Flavia Mills PA-C for Dr. Bradley Verdin
Reason for Consultation: Shortness of breath, pleural effusion
Medical History
-
History of Present Illness:
83-year-old man with PMH significant for nonischemic cardiomyopathy, heart failure with reduced ejection fraction, paroxysmal atrial fibrillation with prior PVI ablations maintained on amiodarone, DIRECTOR CLIENT ICD, CKD, hypertension, hypercholesterolemia,
AAA status postrepair 2017 who presents to emergency department 05/06/2024 with progressively worsening shortness of breath. His outpatient dose of Lasix was uptitrated for several days without improvement of symptoms. He is now having shortness of
breath with minimal activity as well as orthopnea/PND. Patient denies fevers, chills, rigors, cough, chest pain, palpitations, lower extremity edema or weight gain. Chest x-ray demonstrates moderate right pleural effusion. EKG shows AV paced
rhythm. Troponin negative. proBNP 709. Mildly elevated AST of 73 with normal ALT of 32. Patient was given a dose of Doxycycline and ceftriaxone in emergency department.
PMH:
Nonischemic cardiomyopathy, EF 30-35% April 2023
Heart failure with reduced ejection fraction
paroxysmal atrial fibrillation
Pulmonary vein isolation December 2022
repeat AFib/Atach ablation 01/15/24
Medtronic pacemaker 2013, upgraded with DIRECTOR CLIENT ICD 07/04/2023
CKD, stage 3b
Hypercholesterolemia
Hypertension
Abdominal aortic aneurysm repair 2016
Past Medical History
Past Medical History: Other (See HPI)
Past Surgical History: Cardiac (PVI ablation December 2022, repeat ablation January 2024, pacemaker 2013 which was upgraded to DIRECTOR CLIENT ICD June 2023) and Other (AAA repair 2016)
Social History
Tobacco: Former Smoker
Alcohol: Occasional
Drug: None
Personal:
Living: Alone
Employment: Retired
Family History
Family History: Reviewed & Not Pertinent
Allergies / Home Medications
Allergy/AdvReac Type Severity Reaction Status Date / Time
Penicillins Allergy skin Verified 05/06/24 11:00
sloughs off
�Medication �Instructions �Recorded �Confirmed �Type
apixaban 2.5 mg tablet (Eliquis) 2.5 mg PO BID #180 tabs 01/03/23 05/06/24 Rx
atorvastatin 20 mg tablet 20 mg PO DAILY 04/03/23 05/06/24 History
docusate sodium 100 mg capsule 100 mg PO QPM 07/12/23 05/06/24 History
(Stool Softener)
melatonin 10 mg tablet 10 mg PO HS 07/12/23 05/06/24 History
furosemide 20 mg tablet 20 mg PO DAILY 05/06/24 05/06/24 History
metoprolol succinate 25 mg 25 mg PO HS 05/06/24 05/06/24 History
tablet,extended release 24 hr
Review of Systems
-
History Source: Patient
All other systems: Negative unless noted
Physical Exam
Vital Signs
Temp Pulse Resp BP Pulse Ox
97.9 F 64 18 109/58 98
05/06/24 10:57 05/06/24 10:57 05/06/24 10:57 05/06/24 12:00 05/06/24 12:15
GEN: No distress, awake, Ox3
HEENT: supple, anicteric, mmm
LUNGS: Absent breath sounds at right base to approximately a third of the way up, CTA on left, no wheezes/rales
CV: Reg, S1/S2, no murmur, rub or gallop
ABD: soft, BS+, NT/ND
EXT: Trace lower extremity edema, no clubbing or cyanosis
NEURO: Gross non-focal
SKIN: No rash, warm, dry, pink
Lab Results
05/06/24 11:08
05/06/24 11:08
Troponin I < 0.012 ng/ml 05/06/24 11:08
Sgc-F-Ffoosqsgxov Pept 709 pg/ml 05/06/24 11:08
Impression / Plan
-
Primary Care Provider: Dr Douglas Lopez
Primary hairpiece stylist: Dr Solitario Verdin
Impression:
Presents 05/06/2024 with worsening shortness of breath, orthopnea/PND
Right pleural effusion
Nonischemic cardiomyopathy, EF 30-35% April 2023
Chronic Heart failure with reduced ejection fraction
paroxysmal atrial fibrillation
Pulmonary vein isolation December 2022
repeat AFib/Atach ablation 01/15/24
Medtronic pacemaker 2013, upgraded with DIRECTOR CLIENT ICD 07/04/2023
CKD, stage 3b
Hypercholesterolemia
Hypertension
Abdominal aortic aneurysm repair 2016
Echo 10/22/2023: EF 35%. Global hypokinesis with inferior akinesis. Mild concentric LVH. Mild to moderate AI.
Echo 04/17/2023: EF 25 to 30%, mild MR, mild AI, mild TR with PAP 32 mmHg
Echo 05/31/22: LVEF 45-50%, mild AI, PASP 35 assuming RA 3
Nuclear stress test 12/03/21: Normal perfusion, LVEF 25%, no SWMA, TID 0.93
Plan:
-Presents 05/06/2024 with worsening shortness of breath, orthopnea and PND despite up titration of outpatient diuretic therapy
-Moderate right pleural effusion noted on chest x-ray. Consult interventional radiology for thoracentesis with culture/analysis of fluid
-Chronic heart failure with reduced ejection fraction/nonischemic cardiomyopathy (felt to be likely tachycardia mediated). proBNP 709. Does not appear to be significantly volume overloaded, got consider IV diuresis if SOB/orthopnea does not improve
post thoracentesis
-Continue GDMT with metoprolol. Previously hypotension and CARMINE prevented utilization of ELOISA/ARB/ARNI. Could consider adding low-dose valsartan if blood pressure allows during this admission. Also could consider SGLT2 inhibitor
-Given patient has been able to maintain sinus rhythm since ablation in January 2024 would repeat echo to reassess EF
-History of paroxysmal atrial fibrillation. Most recently underwent ablation January 2024 and appears to be maintaining sinus rhythm as he is AV paced on EKG. Continue metoprolol
-Chronic anticoagulation on Eliquis 2.5 mg twice a day as outpatient. Patient's baseline creatinine previously was 1.4-1.6. Creatinine currently 1.3. If creatinine remains below 1.5 he will require 5 mg twice daily
Plan was discussed with ED staff, patient, patient's daughter
HPI 05/06/2024:
83-year-old man with PMH significant for nonischemic cardiomyopathy, heart failure with reduced ejection fraction, paroxysmal atrial fibrillation with prior PVI ablations maintained on amiodarone, DIRECT[employer]IENT ICD, CKD, hypertension, hypercholesterolemia,
AAA status postrepair 2016 who presents to emergency department 05/06/2024 with progressively worsening shortness of breath. His outpatient dose of Lasix was uptitrated for several days without improvement of symptoms. He is now having shortness of
breath with minimal activity as well as orthopnea/PND. Patient denies fevers, chills, rigors, cough, chest pain, palpitations, lower extremity edema or weight gain. Chest x-ray demonstrates moderate right pleural effusion. EKG shows AV paced
rhythm. Troponin negative. proBNP 709. Mildly elevated AST of 73 with normal ALT of 32. Patient was given a dose of Doxycycline and ceftriaxone in emergency department.
Data Reviewed
-
EKG: Report Reviewed by me, Discussed with Physician, Discussed with Nurse, Discussed with Patient and Discussed with Family
Radiology: Report Reviewed by me, Discussed with Physician, Discussed with Nurse, Discussed with Patient and Discussed with Family
Labs: Labs Reviewed by me, Discussed with Physician, Discussed with Nurse, Discussed with Patient and Discussed with Family
Old Records: Reviewed
--- NOTE | 2024-05-06 14:13 | HPS.HSE ---
Family Physician
-
Family Physician: Santino Lopez
Chief Complaint
-
Dyspnea with exertion
History of Present Illness
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
emergency department today with chief complaint of shortness of breath. Patient states that he only feels short of breath with exertion and when lying completely flat. States that started a couple of days ago and is worsened over the subsequent
days. Has been compliant with his home Lasix regimen, which was increased by his OP director hris this past week. When condition continued to worsen he was encouraged to come to the ED. Denies fevers or chills, cough, chest pain, palpitations,
edema, GI symptoms. Denies recent known sick contacts, denies recent travel. AFVSS on arrival, SpO2 in high 90s on room air. Labs with hemoglobin 11.9, BUN 23, AST 73 though otherwise unremarkable. Troponin negative. ECG with AV dual paced
rhythm though no acute ST or T wave abnormalities, no evidence of Sgarbossa criteria. Chest x-ray showed moderate right pleural effusion. Influenza testing negative as was COVID-19. Was given ceftriaxone and doxycycline in the ED.
Medical History
Past Medical History
Past Medical History: Reports CHF and HTN
Past Surgical History: Reports Cardiac (AICD)
Social History
Tobacco: Former Smoker
Alcohol: Occasional
Drug: None
Family History
Family History: Not pertinent
Allergies / Home Medications
Allergies reflects when Allergies were last updated in [facility].
Home Medications with original date entered in [facility]
Allergy/Medication List:
Allergies
Allergy/AdvReac Type Severity Reaction Status Date / Time
Penicillins Allergy skin Verified 05/06/24 11:00
sloughs off
Home Medications
apixaban 2.5 mg tablet (Eliquis) 2.5 mg PO BID #180 tabs 01/03/23
atorvastatin 20 mg tablet 20 mg PO DAILY 04/03/23
docusate sodium 100 mg capsule (Stool Softener) 100 mg PO QPM 07/12/23
melatonin 10 mg tablet 10 mg PO HS 07/12/23
furosemide 20 mg tablet 20 mg PO DAILY 05/06/24
metoprolol succinate 25 mg tablet,extended release 24 hr 25 mg PO HS 05/06/24
Review of Systems
-
History Source: Patient
A 12 point ROS was completed and negative except as noted: Yes
Constitutional: Reports No Symptoms
EENT: Reports No Symptoms
Respiratory: Reports See HPI
Cardiac: Reports See HPI
Abdomen/GI: Reports No Symptoms
: Reports No Symptoms
Musculoskeletal: Reports No Symptoms
Skin: Reports No Symptoms
Neurological: Reports No Symptoms
Endocrine: Reports No Symptoms
Hematologic/Lymphatic: Reports No Symptoms
Psych: Reports No Symptoms
Physical Exam
Vital Signs
Vital Signs
Temp Pulse Resp BP Pulse Ox
97.9 F 64 18 109/58 98
05/06/24 10:57 05/06/24 10:57 05/06/24 10:57 05/06/24 12:00 05/06/24 12:15
Physical Exam
General: Well Developed, Well Nourished, No Apparent Distress and Comfortable
HEENT: NormoCephalic, Anicteric, Moist mucous membranes, Atraumatic and PERRLA
Respiratory: Rales, Non Labored Respirations and Decreased Breath Sounds (Right lung base); No Wheezes, Rhonchi or Accessory Resp Muscle Use
Cardiac: S1/S2 and Regular Rhythm; No Murmur, Rub, Gallop, Peripheral Edema or JVD
GI: Soft, Non Tender, Non Distended, Normal Bowel Sounds and No Hepatosplenomegaly
Musculoskeletal: No Clubbing, No Cyanosis, No Edema and Normal Gait & Station
Skin: Warm and Dry; No Rash
Neuro: AO x 3 and Nonfocal/grossly intact; No Tremors
Psych: Calm
Laboratory Results
-
05/06/24 11:08
05/06/24 11:08
Laboratory Results
Total Bilirubin 0.7 mg/dl (0.2-1.3) 05/06/24 11:08
AST 73 U/L (17-59) H 05/06/24 11:08
ALT 32 U/L (0-50) 05/06/24 11:08
Alkaline Phosphatase 101 U/L (38-126) 05/06/24 11:08
Troponin I < 0.012 ng/ml 05/06/24 11:08
Data Reviewed
-
Diagnostic Radiology: Report Reviewed by me and Discussed with Physician (IR attending)
Lab Data: Labs Reviewed by me and Discussed with Patient
Impression/Plan
-
#Right-sided pleural effusion
-Concern for underlying malignancy with age and smoking history
-No fevers or leukocytosis, suspicion for parapneumonic effusion is low
-X-ray showed moderate right-sided pleural effusion, no other acuity seen
-Stable on room air; does get symptoms with exertion, orthopnea
-Has been compliant with his home Lasix and other medicine
Plan
-IR consult for diagnostic and therapeutic thoracentesis
-Send fluid protein, LDH, cell count, cultures, pH, glucose
-Add on serum protein and LDH for lights criteria
-Continue with home Lasix at current dose
-Hold Eliquis until after thoracentesis
-Hold further Abx for now
#HFrEF
#Dilated nonischemic cardiomyopathy
-Most recent TTE with LVEF 35%, global hypokinesis worst in the inferior wall
-Previously with ischemic workup that was unyielding, unclear etiology
-Home medications include Lasix 20 mg and metoprolol succinate 25 mg nightly
-Currently with cardiac resynchronization therapy/AICD
-Appears euvolemic other than right pleural effusion
-Continue home regimen, consider SGLT2i as OP
#Paroxysmal AF
-Home medications include Eliquis 2.5 twice daily, metoprolol succinate
-No known history of electrophysiologic interventions
-Heart rate currently WNL
#Primary HTN
-Not on any first-line antihypertensive
-No known history of hypertensive systemic disease
-Blood pressure currently well-controlled on metoprolol succinate
#Alcohol use
-LFTs with isolated elevation in AST, <2 X UNL
-No known history of cirrhosis or withdrawal complications
-Will monitor clinically, trend LFTs for now
#CKD stage IIIb
-Baseline creatinine near 1.5; creatinine 1.3 here today
-Question if his renal insufficiency is overestimated
-Current EGFR near 60; CrCl near 43 on last labs
-No associated BMD, acidemia, anemia
-Trend BMP
#AAA s/p EVAR
#Former smoker
DVT prophylaxis: SCDs, holding Eliquis pending thoracentesis
Diet: Regular
CODE STATUS: Full code
I will be admitting Brandon Hicks to telemetry. He is at high risk for further morbidity due to right sided pleural effusion. He will require therapeutic and diagnostic thoracentesis, intensive monitoring of his respiratory status and titration of
his diuretic regimen. I have spoken with the ED attending and IR attending in regards to this patient's care.
[2024-05-06 15:27] LABS: LDH 194 U/L (120-246)
[2024-05-06 16:07] LABS: Body Fluid pH 7.48
[2024-05-06 16:22] LABS: Body Fluid Glucose 99 mg/dl; Body Fluid LDH 106 U/L; Body Fluid Protein 2.4 g/dl
[2024-05-06] MEDS: COLACE 100 MG PO (17:43)
[2024-05-06] MEDS: TOPROL XL 25 MG PO (20:42)
[2024-05-06] MEDS: MELATONIN 10 MG PO (20:42)
--- NOTE | 2024-05-07 02:34 | DOWNTIME ---
There was a [employer] Manager Downtime on 05/07/2024 from 0100 to 05/07/2023 at 0205 . Downtime documentation of patient's care, including medication administrations, has been reconciled in the electronic record per guidelines. Refer to the
patient's paper chart under the miscellaneous tab to see printed paper medication records and downtime forms.
[2024-05-07 03:00] VITALS: BP 111/50
[2024-05-07 06:00] VITALS: BMI 23.7
[2024-05-07 06:55] LABS: % Basophils 0.7 % (0-2); % Immature Granulocytes 0.3 % (0-0.5); % Lymphocytes 14.5 % (20.5-51.1); % Monocytes 7.1 % (1.7-9.3); % Neutrophils 76.4 % (42.2-75.2); Absolute Basophils 0.1 10^3/uL (0-0.2); Absolute Eosinophils 0.1 10^3/uL (0-0.7); Absolute Lymphocytes 1.3 10^3/uL (1.2-3.4); Absolute Monocytes 0.7 10^3/uL (0.1-0.6); Hematocrit 31.6 % (39.0-52.0); Hemoglobin 10.2 g/dL (13.0-18.0); Mean Corp Hgb Conc. 32.3 g/dL (33.0-37.0); Mean Corpuscular Hgb 29.2 pg (27.0-31.0); Mean Corpuscular Volume 90.5 fL (80.0-94.0); Mean Platelet Volume 11.2 fL (7.4-10.4); Nucleated Red Blood Cells % 0 % (-); Platelet Count 135 10^3/uL (130-400); Red Blood Cell Count 3.49 10^6/uL (4.70-6.10); Red Cell Dist. Width 14.1 % (11.5-14.5); White Blood Cell Count 9.1 10^3/uL (4.8-10.8)
[2024-05-07 07:11] LABS: ALT (SGPT) 27 U/L (0-50); AST (SGOT) 58 U/L (17-59); Albumin 2.8 g/dl (3.5-5.0); Alkaline Phosphatase 92 U/L (38-126); Blood Urea Nitrogen 23 mg/dl (9-20); Calcium 8.4 mg/dl (8.4-10.2); Carbon Dioxide 24 mmol/L (22-30); Chloride 106 mmol/L (98-107); Estimated Creatinine Clearance 53 ml/min; Glucose 91 mg/dl (70-99); LDH 188 U/L (120-246); Potassium 3.8 mmol/L (3.5-5.1); Sodium 138 mmol/L (135-145); Total Bilirubin 0.6 mg/dl (0.2-1.3); Total Protein 6.2 g/dl (6.3-8.2); eGFR > 60.00
[2024-05-07 07:48] VITALS: BP 148/73
[2024-05-07] MEDS: LASIX 20 MG PO (08:24)
[2024-05-07] MEDS: LIPITOR 20 MG PO (08:24)
--- NOTE | 2024-05-07 11:07 | W.PN.HOSP.TC ---
Today's Communication/Plan
-
Follow-up echocardiogram
CT chest without contrast
Monitor respiratory status
PT assessment
Assessment / Plan
Assessment / Plan
#Right-sided transudative pleural effusion
-Unclear etiology, likely related to CHF; no signs of liver or renal disease
-X-ray showed moderate right-sided pleural effusion, no other acuity seen
-Has been compliant with his home Lasix and other medicine
-Status post thoracentesis with 1750 mL fluid drained
-Transudative per lights criteria, no signs of infection
-Has remained stable on room air
Plan
-Resume Eliquis this evening
-Continue with Lasix at current dosage
-Order CT chest to better assess parenchyma
-If recurrent then will send cell count + diff, cytology
-Follow-up TTE to reassess LVEF and diastology
-Monitor respiratory status
#HFrEF
#Dilated nonischemic cardiomyopathy
-Most recent TTE with LVEF 35%, global hypokinesis worst in the inferior wall
-Previously with ischemic workup that was unyielding, unclear etiology
-Home medications include Lasix 20 mg and metoprolol succinate 25 mg nightly
-Currently with cardiac resynchronization therapy/AICD
-Appears euvolemic other than right pleural effusion
-Continue home regimen, consider SGLT2i as OP
#Paroxysmal AF
-Home medications include Eliquis 2.5 twice daily, metoprolol succinate
-No known history of electrophysiologic interventions
-Heart rate currently WNL
#Primary HTN
-Not on any first-line antihypertensive
-No known history of hypertensive systemic disease
-Blood pressure currently well-controlled on metoprolol succinate
#Alcohol use
-LFTs with isolated elevation in AST, <2 X UNL
-No known history of cirrhosis or withdrawal complications
-Will monitor clinically, trend LFTs for now
#CKD stage IIIb
-Baseline creatinine near 1.5; creatinine 1.3 here today
-Question if his renal insufficiency is overestimated
-Current EGFR near 60; CrCl near 43 on last labs
-No associated BMD, acidemia, anemia
-Trend BMP
#AAA s/p EVAR
#Former smoker
DVT prophylaxis: SCDs, resume eliquis
Diet: Regular
CODE STATUS: Full code
Spoke with the patient's daughter via his cell phone while in the room on 05/07
Anticipated Discharge: Within 24 hours
Subjective/Interval History
-
Date of Service: May 07, 2024
Seen and examined at the bedside. No acute events reported overnight. AFVSS on room air this morning
1750 mL of fluid drained from right pleura yesterday, patient states symptomatically he feels much better
Denies any new complaints today. Denies chest pain, dyspnea, fevers or chills
Objective Data
-
Labs:
Laboratory Results
05/07/24
06:25
WBC 9.1
Hgb 10.2 L
Hct 31.6 L
Plt Count 135
Sodium 138
Potassium 3.8
Chloride 106
Carbon Dioxide 24
BUN 23 H
Creatinine 1.2
Glucose 91
Calcium 8.4
Total Bilirubin 0.6
AST 58
ALT 27
Alkaline Phosphatase 92
Vital Signs:
Vital Signs
Temp Pulse Resp BP Pulse Ox
97.7 F 63 18 148/73 100
05/07/24 07:48 05/07/24 08:24 05/07/24 07:48 05/07/24 08:24 05/07/24 09:05
I&O
05/06/24 05/07/24 05/08/24
06:59 06:59 06:59
Output Total 400 / 400
Balance -400 / -400
Review of Systems
-
History Source: Patient
All other systems: Reviewed and negative
Physical Exam
-
General: Well Developed, Well Nourished, No Apparent Distress and Comfortable
HEENT: Normocephalic, Atraumatic, Moist Mucous Membranes and Anicteric
Respiratory: Non Labored Respirations and Decreased Breath Sounds (Right base; improved airflow); Negative Wheezes, Rales, Rhonchi or Accessory Resp Muscle Use
Cardiac: Regular Rhythm and S1/S2; Negative Murmur, Rub, JVD or Gallop
GI: Soft, Nontender, Nondistended and Normal Bowel Sounds
Musculoskeletal: No Clubbing, No Cyanosis and No Edema
Skin: Warm and Dry; Negative Rash
Neuro: AO x 3 and Nonfocal/Grossly Intact; Negative Tremors
Psych: Calm
Data Reviewed
-
Labs: Labs Reviewed by me, Discussed with Patient and Discussed with Family
[2024-05-07 11:30] VITALS: BP 146/82
[2024-05-07 12:17] VITALS: O2SAT 97
--- NOTE | 2024-05-07 12:40 | W.PN.CARDCBS ---
Addendum entered and electronically signed by Hema Cortez MD 05/07/24 13:03:
I saw and examined the patient.
The PEDIATRICS HOSPITALIST or PA's note was reviewed and I agree with the note.
Comment: General: Well developed, well nourished in NAD.
Neck: Supple, no JVD, HJR, carotids +2 B/L, no bruits bilaterally.
Heart: Non displaced PMI, RRR, no murmurs, No S3, S4, no rubs.
Lungs: Scattered rhonchi.
Extremities: No clubbing, cyanosis or edema bilaterally.
Neuro: Grossly nonfocal, awake, alert and oriented x3.
Shortness of breath may have been due to pleural effusion and has improved status post thoracentesis. Will increase outpatient Lasix to 40 mg daily. Will check BMP in 1 week. Stable cardiology status for discharge. Follow-up will be arranged in
the office. Will sign off, call with questions
Original Note:
Today's Communication / Plan
-
increase po lasix to 40mg daily
increase eliquis to 5mg BID
BMP in 1 week
will arrange OP cardiac follow up
Impression / Plan
-
Primary Care Provider: Dr Douglas Lopez
Primary jack spinner: Dr Solitario Verdin
Impression:
Presents 05/06/2024 with worsening shortness of breath, orthopnea/PND
Right pleural effusion s/p R thora for 1750cc 05/06/24
Nonischemic cardiomyopathy, EF 30-35% April 2023
Chronic Heart failure with reduced ejection fraction
paroxysmal atrial fibrillation
Pulmonary vein isolation December 2022
repeat AFib/Atach ablation 01/15/24
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
CKD, stage 3b
Hypercholesterolemia
Hypertension
Abdominal aortic aneurysm repair 2016
ECHO 05/07/24: EF 56%, mildly enlarged RV size, pacer wire in RV, mild biatrial enlargement, MAC, trace MR, mild to moderate AR, mild TR, mild NV, dilated aortic root, color flow pattern suggestive of small PFO versus ASD
Echo 10/22/2023: EF 35%. Global hypokinesis with inferior akinesis. Mild concentric LVH. Mild to moderate AI.
Echo 04/17/2023: EF 25 to 30%, mild MR, mild AI, mild TR with PAP 32 mmHg
Echo 05/31/22: LVEF 45-50%, mild AI, PASP 35 assuming RA 3
Nuclear stress test 12/03/21: Normal perfusion, LVEF 25%, no SWMA, TID 0.93
Plan:
-Presents 05/06/2024 with worsening shortness of breath, orthopnea. with mod R pleural effusion on CXR. s/p thoracentesis in [facility] 05/06/24 for 1750cc
-although does not appear to be volume overloaded on exam and proBNP lower than previous, light's criteria appears consistent with transudative effusion. will increase po lasix dose to 40mg daily
-He has history of NICM felt to be tachy mediated from afib. s/p PVI 01/2024 and has been maintaining SR. by echo this admission, EF has normalized!
-Continue GDMT with metoprolol. Previously hypotension and CARMINE prevented utilization of ELOISA/ARB/ARNI.
-on Eliquis 2.5 mg twice a day as outpatient as baseline creatinine previously was 1.4-1.6. Creatinine down to 1.2. will increase eliquis dosing to 5mg BID
-BMP in 1 week upon DC
-will arrange OP cardiac follow up
-d/w patient's primary jack spinner. d/w hospitalist via TT
HPI 05/06/2024:
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
AAA status postrepair 2016 who presents to emergency department 05/06/2024 with progressively worsening shortness of breath. His outpatient dose of Lasix was uptitrated for several days without improvement of symptoms. He is now having shortness of
breath with minimal activity as well as orthopnea/PND. Patient denies fevers, chills, rigors, cough, chest pain, palpitations, lower extremity edema or weight gain. Chest x-ray demonstrates moderate right pleural effusion. EKG shows AV paced
rhythm. Troponin negative. proBNP 709. Mildly elevated AST of 73 with normal ALT of 32. Patient was given a dose of Doxycycline and ceftriaxone in emergency department.
Progress Note - Special Event Assistant
Subjective
Date of Service: May 07, 2024
feeling well
Objective
Labs:
05/07/24 06:25
05/07/24 06:25
Labs
Hgb 10.2 g/dL (13.0-18.0) L 05/07/24 06:25
Hct 31.6 % (39.0-52.0) L 05/07/24 06:25
Plt Count 135 10^3/uL (130-400) 05/07/24 06:25
Sodium 138 mmol/L (135-145) 05/07/24 06:25
Potassium 3.8 mmol/L (3.5-5.1) 05/07/24 06:25
BUN 23 mg/dl (9-20) H 05/07/24 06:25
Creatinine 1.2 mg/dL (0.7-1.3) 05/07/24 06:25
Glucose 91 mg/dl (70-99) 05/07/24 06:25
Troponins
05/06/24
11:08
Troponin I < 0.012
Vital Signs and I&O:
Vital Signs
Temp Pulse Resp BP Pulse Ox
98 F 64 18 146/82 100
05/07/24 11:30 05/07/24 11:30 05/07/24 11:30 05/07/24 11:30 05/07/24 11:30
Vital Signs
Temp Pulse Resp BP Pulse Ox
98 F 64 18 146/82 100
05/07/24 11:30 05/07/24 11:30 05/07/24 11:30 05/07/24 11:30 05/07/24 11:30
Intake & Output
05/05/24 05/06/24 05/07/24 05/08/24
07:59 07:59 07:59 07:59
Output Total 400 / 400
Balance -400 / -400
Physical Exam
Physical Exam
GEN: No distress, awake, alert, oriented x3
HEENT: supple, anicteric, mmm, eomi
LUNGS: Rhonchi RLB, no wheezes
CV: Reg, S1/S2, 1/6 murmur
ABD: soft, BS+, NT/ND
EXT: No cyanosis, clubbing, edema
NEURO: Gross non-focal
SKIN: Warm, pink, dry. No rash
--- NOTE | 2024-05-07 13:28 | W.DCSUMMARY ---
Discharge Summary
Discharge Data
Date of Admission: 05/06/24
Date of Discharge: 05/07/24
-
Pending Results: No
Hospital Course
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 Upon arrival to the ED was found to have moderate right-sided pleural effusion. IR was consulted
and 1750 mL of pleural fluid was drained from the right lung. Symptomatically improved, never required oxygen. Fluid studies demonstrated transudative effusion. proBNP not significantly elevated, otherwise did not appear hypervolemic.
Echocardiogram showed recovery of ejection fraction now at 55%. Evaluated by cardiology who increased his Lasix to 40 mg daily, Eliquis increased to 5 mg daily as renal function improved from previous baseline. CT scan of the lung following
thoracentesis did show signs of bibasilar infiltrate/scarring. Would recommend follow-up with PCP for high-resolution CT scan. Also was provided for BMP 1 week after discharge to reassess kidney function. Provided prescription for chest x-ray if
symptoms recurred prior to seeing outside physician.
If patient does have recurrent right-sided pleural effusion his next thoracentesis should include cell count with differential, cytology, as well as glucose, pH, lights criteria labs. Despite transudative effusion cannot completely rule out
underlying malignancy. Encouraged follow-up with PCP and industrial millwright within 2 weeks of discharge
Discharge Plan
-
Patient Disposition: Home (Routine Discharge)
Discharge Diagnosis/Procedures: Right-sided pleural effusion
Heart failure with recovered ejection fraction
Condition: Good
Diet: 2 Gram Sodium
Activity: As tolerated
Blood Work: BMP in 1 week
Others Tests: Chest x-ray if needed (if you develop worsening shortness of breath with exertion, similar to symptoms you had recently)
High-resolution CT scan of lung, to be ordered by primary care physician
Specialty Instructions: Weigh Daily- Call MD for wt gain/loss 3 lbs overnight/5 lbs in 1 week
Activity Restrictions/Additional Instructions:
Schedule follow-up appointment with your family doctor, should be seen in office within 1 to 2 weeks of discharge from the hospital
Follow-up with cardiology, appointment on 05/14/2024 at 3:20 PM
If you develop shortness of breath, persistent chest pain, or fevers or chills then call your family doctor
Instructions: Pleural effusion, Pleural effusion - Discharge instructions
Referrals:
Flavia Mills PA-C [Specified Professional Personl] - 05/14/24 3:20 pm (You have a cardiology follow-up appointment at the [place] office with Dr. Verdin's physician sales assistants and salespersons, Flavia. Please call with questions)
Santino Lopez MD [Family Provider] -
Additional Discharge Medication Instructions: Increased Eliquis from 2.5 to 5 mg twice daily
Increased furosemide from 20 mg to 40 mg daily
Prescriptions:
New
Eliquis 5 mg Tablet
5 mg PO BID 30 Days Qty: 60 0RF
furosemide 40 mg Tablet
40 mg PO DAILY 30 Days Qty: 30 0RF
Continued
atorvastatin 20 mg Tablet
20 mg PO DAILY
docusate sodium [Stool Softener] 100 mg Capsule
100 mg PO QPM
melatonin 10 mg Tablet
10 mg PO HS
metoprolol succinate 25 mg tablet extended release 24 hr
25 mg PO HS
Discontinued
furosemide 20 mg tablet
20 mg PO DAILY
Eliquis 2.5 mg tablet
2.5 mg PO BID
Discharge Orders:
Discharge Patient (As Directed); Ordered 05/07/24
Ordered By: Hema Renee
Discharge Date and Time
Print Language: TELUGU
--- NOTE | 2024-05-07 14:00 | CM ---
New admission from ED yesterday; pt for discharge to home today.
Brandon lives alone in an apartment. He is fully independent at baseline, owns a RW and SPC, but not currently using AD.
Patient drives, is independent with all IADLs.
Plan: Discharge to home with no identified needs.
PCP: Dr. Lopez
Pharm: [facility] in [place]
== END 2024-05-07 14:15 | disposition home or self-care (01) | DRG 292 ==
LOC: 4 EAST ACU 14:36
PROVIDERS: Physician Assistant Medical; Radiology Diagnostic Radiology; ADMITTING PHYSICIAN Internal Medicine; CONSULT PHYSICIAN Internal Medicine Cardiovascular Disease; EMERGENCY PHYSICIAN Emergency Medicine; FAMILY PHYSICIAN Family Medicine
PROC: 0W993ZZ Drainage of Right Pleural Cavity, Percutaneous Approach (ICD-10-PCS; 2024-05-06)
DX: I13.0 Hypertensive heart and chronic kidney disease with heart failure and stage 1 through stage 4 chronic kidney disease, or unspecified chronic kidney disease (principal); I50.22 Chronic systolic (congestive) heart failure; J91.8 Pleural effusion in other conditions classified elsewhere; N18.32 Chronic kidney disease, stage 3b; I48.0 Paroxysmal atrial fibrillation; Z79.01 Long term (current) use of anticoagulants; Z95.0 Presence of cardiac pacemaker; I42.0 Dilated cardiomyopathy; I71.40 Abdominal aortic aneurysm, without rupture, unspecified; Z87.891 Personal history of nicotine dependence; Z88.0 Allergy status to penicillin; E78.00 Pure hypercholesterolemia, unspecified; Z79.899 Other long term (current) drug therapy; Z11.52 Encounter for screening for COVID-19
CPT/HCPCS: 32555; 71045; 71046; 71250; 80053; 82945; 83615; 83880; 83986; 84157; 84484; 85025; 87015; 87070; 87205; 87502; 87811; 93005; 93306; 96374; 97162; 99285

== ENCOUNTER 2024-05-12 15:08 | Observation (INO) | payer OTHER, SELFPAY ==
[2024-05-12] VITALS (9 sets, daily range): BP systolic 93–145; BP diastolic 54–73
--- NOTE | 2024-05-12 12:52 | ED.GENMED ---
History of Present Illness
General
Chief Complaint: Rectal Bleeding
Source: patient
Time Seen by Provider: 05/12/24 12:39
History of Present Illness
History of Present Illness:
83 yr old male presents to ed with black stool, once q d since sunday (but none yesterday). He brings a sample of black stool from this AM with him. He last took his DOAC this AM. He denies abd pain/cp/sob/f/c/n/v/anorexia. He notes occasionally
he will not smear of blood whenhe blows his nose. He has had hemorroidal mild bleedidng in past, none recently, No brbpr, no bleeidng elsewhere. No abd pain, however in last 2 weeks, occas lower cramping before having a bm. Pt had recent
thoracentesis of transudative fluid lasdt week.
Past History
Past History
ED Past Medical History: Arrthythmia (afib), CHF, HTN, Hypercholesterolemia, Renal failure, Valvular disease and Other (AAA)
ED Past Surgical History: Cardiac (aaa s/p repair;) and Other
Social History
Tobacco: Former smoker (Quit in 1987)
Alcohol: Occasional
Drug: None
Personal:
Living: alone
Phy Exam
Physical Exam
Physical Exam:
AAO times three, pleasant
PERRL, conj pink
mmm, o/p clear
hrt rrr
lung clear, decreased bs R base
ab soft, nt, n d
extrem no c/c/e
skin warm, well perfused
psych appropriate
neuro intact
Course
Orders/Labs/Results
Orders:
Orders
05/12/24 Breakfast
NPO
Allow oral meds: Yes
Allow clear liquids: Sips of Clears
05/12/24 12:51
Cardiac Monitoring- Treatment ONCE
IV Insert/Care/Rem.- Treatment PRN
Pantoprazole 80 mg/100 ml Nss [Protonix] 80 mg in 100 ml IV NOW
Pantoprazole [Protonix IV] 80 mg IV NOW STA
05/12/24 12:52
Electrocardiogram (*1) Stat
Reason for Study: Other
Other Reason for Exam: GI Bleed
EKG- Treatment ONCE
05/12/24 13:09
Complete Blood Count/With Diff Urgent
Comprehensive Metabolic Panel Urgent
05/12/24 13:10
Type And Crossmatch [Type+Screen] Urgent
05/12/24 14:03
Admit/Transfer Patient As Directed
Co-Sign Provider:
Level of Care: Observation services
Assign to:: Telemetry
Physician / Group: celena
Diagnosis: UGIB
Reason for Telemetry: Arrhythmia
Date to Stop Telemetry: 05/15/24
Time to Stop Telemetry: 11:00
Code Status As Directed
Resuscitation Status: Full Code
PRN Pain Medication Management As Directed
May give lesser potent ordered pain med per pt: Yes
preference::
Protocol:: Medication orders for pain may be administered in a
manner that supports deferring to patient preference
when the pt is:
- Requesting an ordered lesser potent pain medication.
Least to most potent pain medications are defined
as: acetaminophen < NSAID < tramadol < opioids
(morphine, oxycodone, hydromorphone).
- Requesting a lesser dose of the same medication IF
ORDERED.
- Requesting a less intrusive route of administration
if both routes are prescribed by the provider (PO <
IV).
05/12/24 21:21
Metoprolol Xl [Toprol Xl] 25 mg PO QPM
05/12/24 21:21
GASTROINTESTINAL CONSULT Routine
Consulting Provider: Robert Elias
Was physician already notified: Yes
Activity As Directed
Activity Level: As Tolerated
Pneumatic Compression Sleeves As Directed
Type: Knee high
Vital Signs As Directed
Frequency: Per unit guidelines
DX Deep Vein Thrombosis Video Routine
05/12/24 22:00
Melatonin 10 mg PO HS
05/12/24 22:51
Pantoprazole 80 mg/100 ml Nss [Protonix] 80 mg in 100 ml IV Q10H
05/13/24 06:41
Basic Metabolic Panel IN AM
Complete Blood Count/With Diff IN AM
05/13/24 08:00
Atorvastatin [Lipitor] 20 mg PO DAILY
Multivitamin [Theragran] 1 tablet PO DAILY
05/15/24 11:00
DC Protocol for Telemetry ONCE
Abnormal Lab Results
05/12/24
13:09
RBC 3.66 L 10^6/uL
(4.70-6.10)
Hgb 10.8 L g/dL
(13.0-18.0)
Hct 33.6 L %
(39.0-52.0)
MCHC 32.1 L g/dL
(33.0-37.0)
MPV 11.3 H fL
(7.4-10.4)
Absolute Neuts (auto) 8.0 H 10^3/uL
(1.4-6.5)
Absolute Lymphs (auto) 1.1 L 10^3/uL
(1.2-3.4)
Absolute Monos (auto) 0.7 H 10^3/uL
(0.1-0.6)
Neutrophils % 80.4 H %
(42.2-75.2)
Lymphocytes % 11.2 L %
(20.5-51.1)
BUN 26 H mg/dl
(9-20)
Creatinine 1.4 H mg/dL
(0.7-1.3)
Glucose 100 H mg/dl
(70-99)
AST 73 H U/L
(17-59)
Albumin 3.3 L g/dl
(3.5-5.0)
05/12/24 13:09
05/12/24 13:09
Vital Signs
Initial and Last Documented VS:
Initial Vital Signs
Temp Pulse Resp BP Pulse Ox
97.9 F 87 20 128/65 93
05/12/24 11:14 05/12/24 11:14 05/12/24 11:14 05/12/24 11:14 05/12/24 11:14
Last Documented Vital Signs
Temp Pulse Resp BP Pulse Ox
97.6 F 62 18 108/47 99
05/14/24 14:33 05/14/24 14:33 05/14/24 14:33 05/14/24 14:33 05/14/24 14:33
MDM/Problems Addressed
Differential Diagnosis Includes:
but not limited to gastric ulcer, gastritis, doac induced blleeding, duoenal ulcer, etc. etc.
Chronic conditions affecting care:
DOAC use
*Pulse Oximetry
Patient hypoxic: no
*Food Service Utility Worker Interpretation
Rate: normal
*Critical Care Note
Total Time (30-74mins, 75-104mins- exclusive of procedures): Not Applicable
Patient Management
Social determinants of health affecting care: Strong social support
Update Note
Update Note:
Pt stable at this time, awaiting labs, PPI ordered. Likely admission, hold DOAC, gi c/s for eGD, etc. Does not appear to meet need for rbc tx at this time.
ED Attending Note
-
Portions of this chart may have been created with voice recognition software.� Occasional wrong word or��sound alike� substitutions may have occurred due to the inherent limitations of voice recognition software.
Discharge Plan
Departure
Patient Disposition: Admit
Date of Disposition: 05/12/24
Time of Disposition: 13:45
Admit to: Telemetry
Presentation/result/management discussed w/ accepting MD/DO: Hospitalist
Condition: Fair
Discharge Problem:
Acute GI bleeding
Interventions
Interventions:
*Risk Screen - Suicide Last Done: 05/12/24 11:14
*General Assessment Last Done: 05/12/24 13:23
*Neglect/Abuse Screening Last Done: 05/12/24 13:23
ED- Fall Risk Assessment Last Done: 05/12/24 21:14
*ED COVID-19 Vaccine History Last Done: 05/12/24 13:23
*Nursing Disposition Last Done: 05/12/24 21:14
YL-Aeqvdw-Sgqqasmajn Assessment Last Done: 05/12/24 13:23
ED- Cardiac Assessment Last Done: 05/12/24 13:23
ED- Pulmonary Assessment Last Done: 05/12/24 13:23
Discharge Date and Time
Discharge Date/Time: 05/12/24 21:15
[2024-05-12] MEDS: PROTONIX 100 IV ×2 (13:11→22:36)
[2024-05-12] MEDS: PROTONIX IV 80 MG IV (13:11)
[2024-05-12 13:24] LABS: % Basophils 0.5 % (0-2); % Eosinophils 0.4 % (0-6); % Immature Granulocytes 0.4 % (0-0.5); % Lymphocytes 11.2 % (20.5-51.1); % Monocytes 7.1 % (1.7-9.3); % Neutrophils 80.4 % (42.2-75.2); Absolute Basophils 0.1 10^3/uL (0-0.2); Absolute Lymphocytes 1.1 10^3/uL (1.2-3.4); Absolute Monocytes 0.7 10^3/uL (0.1-0.6); Hematocrit 33.6 % (39.0-52.0); Hemoglobin 10.8 g/dL (13.0-18.0); Mean Corp Hgb Conc. 32.1 g/dL (33.0-37.0); Mean Corpuscular Hgb 29.5 pg (27.0-31.0); Mean Corpuscular Volume 91.8 fL (80.0-94.0); Mean Platelet Volume 11.3 fL (7.4-10.4); Nucleated Red Blood Cells % 0 % (-); Platelet Count 170 10^3/uL (130-400); Red Blood Cell Count 3.66 10^6/uL (4.70-6.10); Red Cell Dist. Width 14.1 % (11.5-14.5)
[2024-05-12 13:40] LABS: ALT (SGPT) 32 U/L (0-50); AST (SGOT) 73 U/L (17-59); Albumin 3.3 g/dl (3.5-5.0); Alkaline Phosphatase 118 U/L (38-126); Blood Urea Nitrogen 26 mg/dl (9-20); Calcium 8.8 mg/dl (8.4-10.2); Carbon Dioxide 25 mmol/L (22-30); Chloride 102 mmol/L (98-107); Glucose 100 mg/dl (70-99); Potassium 4.1 mmol/L (3.5-5.1); Sodium 135 mmol/L (135-145); Total Bilirubin 0.6 mg/dl (0.2-1.3); Total Protein 7.2 g/dl (6.3-8.2); eGFR 50.49
--- NOTE | 2024-05-12 14:14 | HPS.HSE ---
Family Physician
-
Family Physician: Santino Lopez
Chief Complaint
-
dark stool
History of Present Illness
83-year-old male past medical history of hemorrhoidal bleeding, chronic HFrEF, dilated nonischemic cardiomyopathy, paroxysmal atrial fibrillation, hypertension, alcohol use, CKD 3B, abdominal aortic aneurysm status post EVAR, former smoker,
presenting with black stool over the past few days. Denies abdominal pain. Denies chest pain shortness of breath or fevers or chills or nausea or vomiting.
He had a colonoscopy possibly on 10 years ago which was unremarkable.
He drinks alcohol only occasionally.. Denies smoking.
Medical History
Past Medical History
Past Medical History: Reports Other (hemorrhoidal bleeding, chronic HFrEF, dilated nonischemic cardiomyopathy, paroxysmal atrial fibrillation, hypertension, alcohol use, CKD 3B, abdominal aortic aneurysm status post EVAR, former smoker)
Past Surgical History: Reports Other (AICD))
Social History
Tobacco: Non-smoker
Alcohol: Occasional
Drug: None
Family History
Family History: Not pertinent
Allergies / Home Medications
Allergies reflects when Allergies were last updated in [facility].
Home Medications with original date entered in [facility]
Allergy/Medication List:
Allergies
Allergy/AdvReac Type Severity Reaction Status Date / Time
Penicillins Allergy over 40 Verified 05/12/24 11:14
years ago,
localized
arm skin
peeling
Home Medications
atorvastatin 20 mg tablet 20 mg PO DAILY High Cholesterol 04/03/23
docusate sodium 100 mg capsule (Stool Softener) 100 mg PO HS Constipation 07/12/23
melatonin 10 mg tablet 10 mg PO HS Sleep 07/12/23
metoprolol succinate 25 mg tablet,extended release 24 hr 25 mg PO QPM Blood Pressure 05/06/24
furosemide 40 mg tablet 40 mg PO DAILY Heart Failure 1 month #30 tabs 05/07/24
apixaban 2.5 mg tablet (Eliquis) 5 mg PO BID 05/12/24
therapeutic multivitamin 1 tab PO DAILY 05/12/24
Review of Systems
-
History Source: Patient
A 12 point ROS was completed and negative except as noted: Yes
Constitutional: Reports No Symptoms
EENT: Reports No Symptoms
Respiratory: Reports No Symptoms
Cardiac: Reports No Symptoms
Abdomen/GI: Reports See HPI
: Reports No Symptoms
Musculoskeletal: Reports No Symptoms
Skin: Reports No Symptoms
Neurological: Reports No Symptoms
Endocrine: Reports No Symptoms
Hematologic/Lymphatic: Reports No Symptoms
Psych: Reports No Symptoms
Physical Exam
Vital Signs
Vital Signs
Temp Pulse Resp BP Pulse Ox
97.9 F 60 18 93/73 98
05/12/24 11:14 05/12/24 13:18 05/12/24 13:22 05/12/24 13:18 05/12/24 13:23
Physical Exam
General: Well Developed, Well Nourished and No Apparent Distress
HEENT: NormoCephalic, Moist mucous membranes and Atraumatic
Respiratory: Clear
Cardiac: S1/S2 and Regular Rhythm; No Murmur or Rub
GI: Soft, Non Distended, Normal Bowel Sounds and Tender; No Organomegaly
Rectal: Deferred by Provider
Musculoskeletal: No Clubbing, No Cyanosis and No Edema
Skin: No Rash
Neuro: Nonfocal/grossly intact
Laboratory Results
-
05/12/24 13:09
05/12/24 13:09
Laboratory Results
Total Bilirubin 0.6 mg/dl (0.2-1.3) 05/12/24 13:09
AST 73 U/L (17-59) H 05/12/24 13:09
ALT 32 U/L (0-50) 05/12/24 13:09
Alkaline Phosphatase 118 U/L (38-126) 05/12/24 13:09
Data Reviewed
-
Lab Data: Labs Reviewed by me
Old Records: Reviewed
Impression/Plan
-
IMPRESSION:
PLAN:
# Upper GI bleeding
-Hemodynamically stable but single blood pressure of 90s now, will recheck
-Hold Eliquis, docusate
-Hemoglobin 10.8, no decrease
-Protonix drip
-Clear liquid diet, n.p.o. past midnight
-GI consulted
Hemorrhoidal bleed
Chronic HFrEF
Right-sided transudative pleural effusion
-Status post thoracentesis recently
Dilated nonischemic cardiomyopathy with ICD
-Hold Lasix
Paroxysmal atrial fibrillation
-Continue metoprolol
Essential hypertension
Alcohol use
CKD 3B
-Renal function at baseline
Abdominal aortic aneurysm status post EVAR
Former smoker
Full code
DVT prophylaxis�SCDs
Clear liquid diet, n.p.o. past midnight
--- NOTE | 2024-05-12 14:58 | CON.GI ---
Addendum entered and electronically signed by Robert Elias DO 05/12/24 19:58:
I saw and examined the patient.
The ESTATE MANAGER's note was reviewed and I agree with the note.
Comment: Mr. Fatima is a 83 y.o male with past medical history of CKD, AAA (s/p EVAR), non-ischemic cardiomyopathy, HFrEF (w/ EF 30-35%), paroxysmal A FIb (on Eliquis), and previous admission for a right-sided pleural effusion (s/p thoracentesis)
who presented to the ED dark heme (+) stools. Recently had his eliquis increased from 2.5 to 5 mg BiD with subsequent darker stools. Denies any prior history of GI bleeding in the past. No prior EGD, last colonoscopy in 2013 (reportedly negative).
BUN:Lease Broker ratio elevated however diuretics recently increased. Hgb near baseline of 10.8 (previously 10.2 few days earlier) but suspect some degree of hemoconcentration. However, given his prior dark stools since increasing his Eliquis would consider
a diagnostic EGD for further evaluation this admission as patient has risk factors for AVMs. BP soft earlier today, but otherwise HD-stable without evidence of compensatory tachycardia (although on BB).
Recommendations:
- Okay for CLD for now
- Trend Hgb with serial CBC, transfuse as needed
- Last dose of Eliquis this AM, prefer 2-day washout prior to procedure
- Plan for tentative EGD on 05/14/2024 for further evaluation
- No plans for a colonoscopy at this time, but would consider outpatient colonoscopy given heme (+) stools as without any overt GI bleeding
- Rest of care as outlined below
GI will continue to follow.
Original Note:
Consultation
-
Date/Time Consultation Requested: 05/12/24 1415
Date/Time Consultation Performed: 05/12/24 1430
Requesting Provider: Dr. Posadas
Performing Provider: Dr. Elias/NIKOLAY Villatoro
Reason for Consultation: dark stool
Medical History
Chief Complaint / HPI
Chief Complaint: dark stool
History of Present Illness:
83-year-old male with past medical history of nonischemic cardiomyopathy, heart failure with reduced ejection fraction (30 to 35%), paroxysmal A-fib, prior PVI ablation, chronic kidney disease, hyperlipidemia, abdominal aortic aneurysm status
postrepair, AICD who was just recently admitted and discharged on 05/07/2024 with right sided pleural effusion status post thoracentesis. The patient was on Eliquis 2.5 mg daily as an out patient secondary to decreased creatinine. However
creatinine improved and the patient was increased to 5 mg twice daily. The patient started taking this last Sunday he states that he was doing fine and had no issues. He states he has bowel movements daily or every other day without any
difficulty. He states this morning he woke up had a bowel movement and noticed it was darker. At that point he proceeded to come to the emergency room for further evaluation. His stool is brown but OB positive. His hemoglobin is 10.8. On
discharge 05/07/2024 his hemoglobin was 10.2. The patient denies any fevers, chills, nausea, vomiting, melena, hematochezia, dysphagia or dyne aphasia. No early satiety or unintentional weight loss. He states that his last colonoscopy was in
[facility] in 2013. He denies any family history of gastrointestinal malignancy or IBD. He has never had an upper endoscopy before. He eats well. Patient's BUN is 26, on 05/07/2024 it was 23, creatinine is 1.4 where previously it was
1.2. Of note his Lasix was increased to 40 mg daily as well almost 1 week ago. Patient did take Eliquis 5 mg this a.m.
Past Medical History
Past Medical History: Other (Nonischemic cardiomyopathy, heart failure with reduced ejection fraction, paroxysmal A-fib, chronic kidney disease, hyperlipidemia, abdominal aortic aneurysm status post repair, pleural effusion)
Past Surgical History: Other (PVI ablation, pacemaker upgraded to ICD, abdominal aortic aneurysm repair)
Social History
Tobacco: Former Smoker
Alcohol: Occasional
Drug: None
Personal:
Living: Alone
Employment: Retired
Family History
Family History: Other (No family history of gastrointestinal malignancy or IBD)
Allergies / Home Medications
Allergy/AdvReac Type Severity Reaction Status Date / Time
Penicillins Allergy over 40 Verified 05/12/24 11:14
years ago,
localized
arm skin
peeling
�Medication �Instructions �Recorded
atorvastatin 20 mg tablet 20 mg PO DAILY High Cholesterol 04/03/23
docusate sodium 100 mg capsule 100 mg PO HS Constipation 07/12/23
(Stool Softener)
melatonin 10 mg tablet 10 mg PO HS Sleep 07/12/23
metoprolol succinate 25 mg 25 mg PO QPM Blood Pressure 05/06/24
tablet,extended release 24 hr
furosemide 40 mg tablet 40 mg PO DAILY Heart Failure 1 05/07/24
month #30 tabs
apixaban 2.5 mg tablet (Eliquis) 5 mg PO BID 05/12/24
therapeutic multivitamin 1 tab PO DAILY 05/12/24
Review of Systems
-
All other systems: A 12 pt ROS was Negative except as stated above in HPI
Vital Signs
Temp Pulse Resp BP Pulse Ox
97.9 F 60 18 93/73 98
05/12/24 11:14 05/12/24 13:18 05/12/24 13:22 05/12/24 13:18 05/12/24 13:23
Physical Exam
Exam
General: No Apparent Distress
HEENT: Anicteric
Respiratory: Clear (Decreased right base)
Cardiac: Irregular Rhythm
GI: Soft, Non Tender, Non Distended and Normal Bowel Sounds
Rectal: Brown (brown loose OB positive stool)
Skin: Warm and Dry
Neuro: AO x 3
Psych: Calm
Results
WBC 10.0 10^3/uL (4.8-10.8) 05/12/24 13:09
Hgb 10.8 g/dL (13.0-18.0) L 05/12/24 13:09
Hct 33.6 % (39.0-52.0) L 05/12/24 13:09
MCV 91.8 fL (80.0-94.0) 05/12/24 13:09
Plt Count 170 10^3/uL (130-400) D 05/12/24 13:09
Absolute Neuts (auto) 8.0 10^3/uL (1.4-6.5) H 05/12/24 13:09
Sodium 135 mmol/L (135-145) 05/12/24 13:09
Potassium 4.1 mmol/L (3.5-5.1) 05/12/24 13:09
Chloride 102 mmol/L (98-107) 05/12/24 13:09
Carbon Dioxide 25 mmol/L (22-30) 05/12/24 13:09
BUN 26 mg/dl (9-20) H 05/12/24 13:09
Creatinine 1.4 mg/dL (0.7-1.3) H 05/12/24 13:09
Calcium 8.8 mg/dl (8.4-10.2) 05/12/24 13:09
Total Bilirubin 0.6 mg/dl (0.2-1.3) 05/12/24 13:09
AST 73 U/L (17-59) H 05/12/24 13:09
ALT 32 U/L (0-50) 05/12/24 13:09
Alkaline Phosphatase 118 U/L (38-126) 05/12/24 13:09
Diagnostic Image Results:
No imaging this admission
Prior GI Procedures:
EGD: Never
Colonoscopy: Per patient 2013 at [facility]. Per him negative. Records not available to us
Assessment / Plan
-
83-year-old male with past medical history of nonischemic cardiomyopathy, heart failure with reduced ejection fraction (30 to 35%), paroxysmal A-fib, prior PVI ablation, chronic kidney disease, hyperlipidemia, abdominal aortic aneurysm status
postrepair, AICD who was just recently admitted and discharged on 05/07/2024 with right sided pleural effusion status post thoracentesis. The patient was on Eliquis 2.5 mg daily as an out patient secondary to decreased creatinine. However
creatinine improved and the patient was increased to 5 mg twice daily. The patient started taking this last Sunday he states that he was doing fine and had no issues. He states he has bowel movements daily or every other day without any
difficulty. He states this morning he woke up had a bowel movement and noticed it was darker. At that point he proceeded to come to the emergency room for further evaluation. We are asked to evaluate for the same. Rectal exam performed by
myself in the emergency room shows loose brown stool. It is OB positive. The patient did take his Eliquis 5 mg this a.m. Hemoglobin is stable from prior admission. He has had no further bowel movements since arrival. BUN and creatinine slightly
increased from prior admission however Lasix was increased. Patient without any GI symptoms. Started on pantoprazole. Never had EGD. Colonoscopy approximately 10 years ago at [facility]. Per patient negative. No family history of
gastrointestinal malignancy.
Impression:
OB positive stool
Chronic anticoagulation for A-fib, recently increased Eliquis to adjust for CKD
Right pleural effusion, status post thoracentesis
Nonischemic cardiomyopathy
Chronic HFrEF
Chronic kidney disease
Chronic macrocytic anemia
Plan:
-Continue pantoprazole IV twice daily
-Okay for clear liquids, no red
-Trend hemoglobin
-Eliquis already on hold per internal medicine, last dose this a.m. 5 mg
-Check iron studies, B12 folate
-Further recommendations to be forthcoming
-
-
Thank you for consultation and allowing me to participate in the patient's care. Please call the solution lead GI physician during the after hours with any questions or concerns.
--- NOTE | 2024-05-12 20:45 | TRANSFER ---
pt arrived from ED via stretcher accompanied by ED staff. pt walked independently from stretcher to bed with no issues. pt is AAOx3, VSS upon arrival. call nolan placed within reach, will continue to monitor closely.
[2024-05-12] MEDS: MELATONIN 10 MG PO (22:05)
[2024-05-12] MEDS: TOPROL XL 25 MG PO (22:06)
[2024-05-13 00:20] VITALS: BMI 25.4
[2024-05-13 03:00] VITALS: BP 113/48
[2024-05-13 06:54] VITALS: BMI 25.0
[2024-05-13 07:00] VITALS: BP 108/42
[2024-05-13 08:02] LABS: % Basophils 0.4 % (0-2); % Eosinophils 2.5 % (0-6); % Immature Granulocytes 0.4 % (0-0.5); % Lymphocytes 17.7 % (20.5-51.1); % Monocytes 8.3 % (1.7-9.3); % Neutrophils 70.7 % (42.2-75.2); Absolute Eosinophils 0.2 10^3/uL (0-0.7); Absolute Lymphocytes 1.4 10^3/uL (1.2-3.4); Absolute Monocytes 0.7 10^3/uL (0.1-0.6); Absolute Neutrophils 5.6 10^3/uL (1.4-6.5); Hemoglobin 9.4 g/dL (13.0-18.0); Mean Corp Hgb Conc. 31.3 g/dL (33.0-37.0); Mean Corpuscular Hgb 28.7 pg (27.0-31.0); Mean Corpuscular Volume 91.7 fL (80.0-94.0); Mean Platelet Volume 11.6 fL (7.4-10.4); Nucleated Red Blood Cells % 0 % (-); Platelet Count 142 10^3/uL (130-400); Red Blood Cell Count 3.27 10^6/uL (4.70-6.10); Red Cell Dist. Width 14.3 % (11.5-14.5)
[2024-05-13 08:15] LABS: Blood Urea Nitrogen 22 mg/dl (9-20); Calcium 8.5 mg/dl (8.4-10.2); Carbon Dioxide 27 mmol/L (22-30); Chloride 103 mmol/L (98-107); Estimated Creatinine Clearance 43 ml/min; Glucose 91 mg/dl (70-99); Iron 38 ug/dl (49-181); Potassium 4.3 mmol/L (3.5-5.1); Sodium 138 mmol/L (135-145); eGFR 50.49
[2024-05-13 08:24] LABS: Percent Saturation 12 % (20-50); Total Iron Binding Capacity 303 ug/dl (261-462)
--- NOTE | 2024-05-13 08:54 | W.PN.GI.CBS2 ---
Today's Communication / Plan
-
Continue CLD, no signs of bleeding and trend serial H/h. IV PPI while holding eliquis for two-day washout. Keep NPO at PA for EGD tomorrow. If unremarkable, will need to consider potential colonoscopy this admission. Rest of care as outlined below.
Assessment / Plan
-
83-year-old male with past medical history of nonischemic cardiomyopathy, heart failure with reduced ejection fraction (30 to 35%), paroxysmal A-fib, prior PVI ablation, chronic kidney disease, hyperlipidemia, abdominal aortic aneurysm status
postrepair, AICD who was just recently admitted and discharged on 05/07/2024 with right sided pleural effusion status post thoracentesis. The patient was on Eliquis 2.5 mg daily as an out patient secondary to decreased creatinine. However
creatinine improved and the patient was increased to 5 mg twice daily. The patient started taking this last Sunday he states that he was doing fine and had no issues. He states he has bowel movements daily or every other day without any
difficulty. He states this morning he woke up had a bowel movement and noticed it was darker. At that point he proceeded to come to the emergency room for further evaluation. We are asked to evaluate for the same. Rectal exam performed by
myself in the emergency room shows loose brown stool. It is OB positive. The patient did take his Eliquis 5 mg this a.m. Hemoglobin is stable from prior admission. He has had no further bowel movements since arrival. BUN and creatinine slightly
increased from prior admission however Lasix was increased. Patient without any GI symptoms. Started on pantoprazole. Never had EGD. Colonoscopy approximately 10 years ago at [facility]. Per patient negative. No family history of
gastrointestinal malignancy.
#OB positive stool
#Chronic anticoagulation for A-fib, recently increased Eliquis to adjust for CKD
#Right pleural effusion, status post thoracentesis
#Nonischemic cardiomyopathy
#Chronic HFrEF
#Chronic kidney disease
#Chronic macrocytic anemia
Recommendations:
- Continue CLD, keep NPO at MN
- Empiric IV PPI 40 mg BiD
- Trend Hgb with serial CBC, transfuse for goal Hgb > 8.0
- Start IV iron given NATALIA with iron sat 12%
- Continue to hold Eliquis (last dose AM of 05/12- ) for 2-day washout
- Plan for EGD tomorrow, 05/14/2024, for further evaluation. If EGD is unremarkable, will need to consider colonoscopy this admission particularly if to be restarted on a/c and NATALIA
- Strict avoidance of all NSAIDs
- Rest of care per primary team
Discussed with primary internal medicine team this AM. GI will continue to follow.
Subjective
Subjective
Date of Service: May 13, 2024
- No acute events overnight
- Drop in Hgb from 10.8 -> 9.4, otherwise without further melena/dark stools
Resting comfortably, although didn't get much sleep overnight. Otherwise, no other abdominal pain or nausea/vomiting. No further dark BMs since admission or other bloody BMs.
Objective
Data Reviewed
Laboratory Data:
Laboratory Results
05/13/24 06:41
05/13/24 06:41
Laboratory Results
Total Bilirubin 0.6 mg/dl (0.2-1.3) 05/12/24 13:09
AST 73 U/L (17-59) H 05/12/24 13:09
ALT 32 U/L (0-50) 05/12/24 13:09
Alkaline Phosphatase 118 U/L (38-126) 05/12/24 13:09
Vital Signs and I&O:
Vital Signs
Temp Pulse Resp BP Pulse Ox
97.6 F 62 20 108/42 95
05/13/24 07:00 05/13/24 07:00 05/13/24 07:00 05/13/24 07:00 05/13/24 07:00
I&O
05/12/24 05/13/24 05/14/24
06:59 06:59 06:59
Intake Total 320 / 320
Output Total 450 / 450
Balance -130 / -130
Physical Exam
Physical Exam
HEENT: Anicteric and Moist mucous membranes
Cardiology: Normal Sinus Rhythm
Pulmonary: Other (Normal WOB on room air)
GI: Soft, Non Distended and Non Tender
Extremities: No Edema
Neuro: Non Focal
[2024-05-13] MEDS: LIPITOR 20 MG PO (08:59)
[2024-05-13] MEDS: THERAGRAN 1 TABLET PO (08:59)
[2024-05-13] MEDS: PROTONIX 100 IV (09:01)
[2024-05-13 09:19] LABS: Folate 13.4 ng/ml (2.76-20); Vitamin B12 > 1000 pg/ml (239-931)
--- NOTE | 2024-05-13 10:28 | CM ---
Addendum entered by Claire Kaur 05/13/24 11:38:
[facility] notice given, pt gave verbal consent.
Brandon is anxious to go home, as he does not sleep when in the hospital.
Advance Directive provided; Brandon will review with his daughter who is an RN. Advised him to share a copy of the completed AD with his PCP and if completed during this hospital stay, we can include it in his permanent medical record.
Original Note:
YVONNE met with Brandon to complete IA. He was recently hospitalized at for pleural effusion; readmitted now with GI Bleed. Plan for EGD while here.
Brandon lives alone in an apartment. He is fully independent at baseline, owns a RW and SPC, but not currently using AD.
Patient drives, is independent with all IADLs.
Plan: Discharge to home with no identified needs.
PCP: Dr. Lopez
Pharm: [facility] in [place]
[2024-05-13 11:00] VITALS: BP 124/63
--- NOTE | 2024-05-13 12:26 | W.PN.HOSP.TC ---
Today's Communication/Plan
-
Monitor vital signs see plan
Continue to monitor hemoglobin
Clear liquid diet for now n.p.o. past midnight per GI
Plan for EGD tomorrow
Discussed with daughter over the phone
Hold Eliquis
Monitor renal function
Assessment / Plan
Assessment / Plan
HEENT: Anicteric and Moist mucous membranes
Cardiology: Normal Sinus Rhythm
Pulmonary: Clear to auscultation, no wheeze
GI: Soft, Non Distended and Non Tender
Extremities: No Edema
Neuro: Non Focal
Acute GI bleeding
Continue to monitor hemoglobin
-Hold Eliquis, plan for EGD 05/14
Continue with clear liquid diet per GI and n.p.o. past midnight
-Hemoglobin 10.8, no decrease
-Protonix drip
-GI following
IV iron
hx of Hemorrhoidal bleed
Chronic HFrEF
Not in acute exacerbation
Monitor closely with Lasix
Right-sided transudative pleural effusion
-Status post thoracentesis recently
Dilated nonischemic cardiomyopathy with ICD
-Hold Lasix
Paroxysmal atrial fibrillation
-Continue metoprolol
Essential hypertension
Alcohol use
CKD 3B
-Renal function at baseline
Abdominal aortic aneurysm status post EVAR
Former smoker
Full code
DVT prophylaxis�SCDs
I spent a total of 52 minutes with the patient or on the floor. More than 50% of this time involved counseling and coordination of care.
Anticipated Discharge: 24 - 48 hours
Subjective/Interval History
-
Date of Service: May 13, 2024
denies pain
Objective Data
-
Labs:
Laboratory Results
05/13/24
06:41
WBC 8.0
Hgb 9.4 L
Hct 30.0 L
Plt Count 142
Sodium 138
Potassium 4.3
Chloride 103
Carbon Dioxide 27
BUN 22 H
Creatinine 1.4 H
Glucose 91
Calcium 8.5
Vital Signs:
Vital Signs
Temp Pulse Resp BP Pulse Ox
97.5 F 63 16 124/63 98
05/13/24 11:00 05/13/24 11:00 05/13/24 11:00 05/13/24 11:00 05/13/24 11:00
I&O
05/12/24 05/13/24 05/14/24
06:59 06:59 06:59
Intake Total 320 / 320
Output Total 450 / 450
Balance -130 / -130
[2024-05-13] MEDS: FERRLECIT 110 MG IV (14:41)
[2024-05-13 15:00] VITALS: BP 109/51
[2024-05-13] MEDS: TOPROL XL 25 MG PO (17:51)
[2024-05-13 19:15] VITALS: BP 144/67
[2024-05-13] MEDS: MELATONIN 10 MG PO (20:30)
[2024-05-13] MEDS: PROTONIX IV 40 MG IV (20:30)
[2024-05-13] MEDS: NSS (PRESERVATIVE FREE) 10 ML IV (20:30)
[2024-05-13 22:20] LABS: Hematocrit 28.7 % (39.0-52.0); Hemoglobin 9.5 g/dL (13.0-18.0)
[2024-05-13 23:34] VITALS: BP 103/42
[2024-05-14 03:30] VITALS: BP 105/40
[2024-05-14 06:00] VITALS: BMI 25.1
[2024-05-14 07:00] VITALS: BP 111/44
[2024-05-14 07:34] LABS: % Basophils 0.5 % (0-2); % Eosinophils 1.5 % (0-6); % Immature Granulocytes 0.3 % (0-0.5); % Lymphocytes 15.2 % (20.5-51.1); % Monocytes 8.9 % (1.7-9.3); % Neutrophils 73.6 % (42.2-75.2); Absolute Eosinophils 0.1 10^3/uL (0-0.7); Absolute Lymphocytes 1.1 10^3/uL (1.2-3.4); Absolute Monocytes 0.7 10^3/uL (0.1-0.6); Absolute Neutrophils 5.5 10^3/uL (1.4-6.5); Hematocrit 29.8 % (39.0-52.0); Hemoglobin 9.6 g/dL (13.0-18.0); Mean Corp Hgb Conc. 32.2 g/dL (33.0-37.0); Mean Corpuscular Hgb 29.3 pg (27.0-31.0); Mean Corpuscular Volume 90.9 fL (80.0-94.0); Mean Platelet Volume 11.4 fL (7.4-10.4); Nucleated Red Blood Cells % 0 % (-); Platelet Count 147 10^3/uL (130-400); Red Blood Cell Count 3.28 10^6/uL (4.70-6.10); Red Cell Dist. Width 14.3 % (11.5-14.5); White Blood Cell Count 7.4 10^3/uL (4.8-10.8)
[2024-05-14 07:52] LABS: ALT (SGPT) 29 U/L (0-50); AST (SGOT) 62 U/L (17-59); Albumin 2.6 g/dl (3.5-5.0); Alkaline Phosphatase 99 U/L (38-126); Blood Urea Nitrogen 18 mg/dl (9-20); Calcium 8.4 mg/dl (8.4-10.2); Carbon Dioxide 26 mmol/L (22-30); Chloride 105 mmol/L (98-107); Estimated Creatinine Clearance 43 ml/min; Glucose 98 mg/dl (70-99); Potassium 3.9 mmol/L (3.5-5.1); Sodium 136 mmol/L (135-145); Total Bilirubin 0.5 mg/dl (0.2-1.3); Total Protein 6.1 g/dl (6.3-8.2); eGFR 50.49
[2024-05-14 09:25] VITALS: BP 109/58
[2024-05-14 09:30] VITALS: BP 104/54
[2024-05-14] MEDS: THERAGRAN 1 TABLET PO (10:20)
[2024-05-14] MEDS: LIPITOR 20 MG PO (10:20)
[2024-05-14] MEDS: NSS (PRESERVATIVE FREE) 10 ML IV (10:22)
[2024-05-14] MEDS: PROTONIX IV 40 MG IV (10:22)
[2024-05-14 11:52] VITALS: BP 115/56
--- NOTE | 2024-05-14 13:24 | W.PN.HOSP.TC ---
Today's Communication/Plan
-
Monitor vitals
See plan
Reduce Eliquis to 2.5 mg twice daily on discharge to be resumed tomorrow
Patient with follow-up with PCP, GI and cardiology outpatient
Tolerated breakfast after EGD, for discharge today
Discussed with daughter at bedside
Time of discharge 38 minutes
Assessment / Plan
Assessment / Plan
HEENT: Anicteric and Moist mucous membranes
Cardiology: Normal Sinus Rhythm
Pulmonary: Clear to auscultation, no wheeze
GI: Soft, Non Distended and Non Tender
Extremities: No Edema
Neuro: Non Focal
Acute GI bleeding
Likely exacerbated by Eliquis
Continue to monitor hemoglobin
-Hold Eliquis, status post EGD 05/14 with erythematous, granular, mild nodular and petechial
mucosa in the antrum and prepyloric region of the
stomach. Biopsied to rule out H pylori.
Discussed with GI and they are okay with patient to be restarted on low-dose of Eliquis starting 05/15. I also discussed with patient primary him assistant Dr. Verdin who is okay with this plan and wants patient to follow-up with him outpatient.
Continue to monitor hemoglobin, patient aware to check labs next week with primary care provider
PPI twice daily on discharge. Patient will follow-up with GI outpatient
-GI following
IV iron
hx of Hemorrhoidal bleed
Chronic HFrEF
Not in acute exacerbation
Monitor closely with Lasix
Right-sided transudative pleural effusion
-Status post thoracentesis recently
Dilated nonischemic cardiomyopathy with ICD
-Hold Lasix
Paroxysmal atrial fibrillation
-Continue metoprolol
Essential hypertension
Alcohol use
CKD 3B
-Renal function at baseline
Abdominal aortic aneurysm status post EVAR
Former smoker
Full code
DVT prophylaxis�SCDs
Anticipated Discharge: Today
Subjective/Interval History
-
Date of Service: May 14, 2024
Denies pain
Objective Data
-
Labs:
Laboratory Results
05/14/24
06:53
WBC 7.4
Hgb 9.6 L
Hct 29.8 L
Plt Count 147
Sodium 136
Potassium 3.9
Chloride 105
Carbon Dioxide 26
BUN 18
Creatinine 1.4 H
Glucose 98
Calcium 8.4
Total Bilirubin 0.5
AST 62 H
ALT 29
Alkaline Phosphatase 99
Vital Signs:
Vital Signs
Temp Pulse Resp BP Pulse Ox
97.6 F 61 16 115/56 99
05/14/24 11:52 05/14/24 11:52 05/14/24 11:52 05/14/24 11:52 05/14/24 11:52
I&O
05/13/24 05/14/24 05/15/24
06:59 06:59 06:59
Intake Total 320 / 320 240 / 240 240 / 240
Output Total 450 / 450 475 / 475 100 / 100
Balance -130 / -130 -235 / -235 140 / 140
--- NOTE | 2024-05-14 13:34 | W.DCSUMMARY ---
Discharge Summary
Discharge Data
Date of Admission: 05/12/24
Date of Discharge: 05/14/24
-
Pending Results: No
Hospital Course
83-year-old male with past medical history of CHF, right-sided transudative pleural effusion, dilated nonischemic cardiomyopathy with ICD, paroxysmal atrial fibrillation, essential hypertension, alcohol use, CKD stage IIIb, abdominal aortic aneurysm
status post EVAR, CHF with reduced EF came to the hospital with acute GI bleed which was likely thought was exacerbated by Eliquis. Patient underwent EGD by gastroenterology after Eliquis washout which showed erythematous, granular and mild nodular
and petechial mucosa in the antrum and prepyloric region of the stomach which was biopsied to rule out H. pylori. Gastroenterology recommended patient to follow-up with them closely outpatient and to be on Protonix twice daily. Gastroenterology
also recommended patient to follow-up with cardiology for Eliquis dosing. I discussed with Dr. Verdin who is his primary cadastral engineer who agreed to reduce Eliquis to 2.5 mg twice daily and to follow-up with him closely outpatient. Patient
symptoms over time continue to improve and he was able to tolerate regular diet prior to discharge. Since his symptoms improved, he was then discharged home with instructions to restart lower dose of Eliquis 05/15/2024. On discharge he was
instructed to follow-up with all his physicians outpatient.
Discharge Plan
-
Patient Disposition: Home (Routine Discharge)
Discharge Diagnosis/Procedures: Acute GI bleed
History of CHF
Paroxysmal atrial fibrillation
CKD stage IIIb
Diet: As tolerated
Activity: As tolerated
Driving Restrictions: As prior to admission
Bathing Restrictions: None
Blood Work: CBC and BMP on 05/19/2024 with primary care provider
Activity Restrictions/Additional Instructions:
Avoid NSAIDs
Referrals:
Donte Verdin MD [Active] -
Robert Elias DO [Active] - in one week
Santino Lopez MD [Family Provider] - in less than 1 week
Prescriptions:
New
pantoprazole [Protonix] 40 mg tablet,delayed release (DR/EC)
40 mg PO BID Qty: 60 0RF
Continued
atorvastatin 20 mg Tablet
20 mg PO DAILY
docusate sodium [Stool Softener] 100 mg Capsule
100 mg PO HS
melatonin 10 mg Tablet
10 mg PO HS
metoprolol succinate 25 mg tablet extended release 24 hr
25 mg PO QPM
furosemide 40 mg Tablet
40 mg PO DAILY 30 Days Qty: 30 0RF
therapeutic multivitamin Tablet
1 tab PO DAILY
Changed
Eliquis 2.5 mg Tablet
2.5 mg PO BID Qty: 0 0RF
Rx Instructions:
Start 05/15/2024
Discharge Orders:
Discharge Patient (As Directed); Ordered 05/14/24
Ordered By: Ricky Lundberg
Discharge Date and Time
Discharge Date/Time: 05/14/24 17:46
Print Language: IRISH
[2024-05-14 14:33] VITALS: BP 108/47
[2024-05-14] MEDS: FERRLECIT IV (15:28)
== END 2024-05-14 17:46 | disposition home or self-care (01) ==
LOC: 4 EAST ACU 15:08
PROVIDERS: Nurse Practitioner; Student in an Organized Health Care Education/Training Program; ADMITTING PHYSICIAN Hospitalist; ATTENDING PHYSICIAN Internal Medicine; CONSULT PHYSICIAN Student in an Organized Health Care Education/Training Program; EMERGENCY PHYSICIAN Emergency Medicine; FAMILY PHYSICIAN Family Medicine
DX: K62.5 Hemorrhage of anus and rectum (principal); E78.00 Pure hypercholesterolemia, unspecified; I48.0 Paroxysmal atrial fibrillation; I42.0 Dilated cardiomyopathy; K31.89 Other diseases of stomach and duodenum; R19.5 Other fecal abnormalities; D53.9 Nutritional anemia, unspecified; D62 Acute posthemorrhagic anemia; I50.22 Chronic systolic (congestive) heart failure; N18.32 Chronic kidney disease, stage 3b; I13.0 Hypertensive heart and chronic kidney disease with heart failure and stage 1 through stage 4 chronic kidney disease, or unspecified chronic kidney disease; Z86.79 Personal history of other diseases of the circulatory system; Z79.01 Long term (current) use of anticoagulants; Z87.19 Personal history of other diseases of the digestive system; Z95.810 Presence of automatic (implantable) cardiac defibrillator; Z88.0 Allergy status to penicillin; Z87.891 Personal history of nicotine dependence
CPT/HCPCS: 43239; 88305; 80048; 80053; 82607; 82728; 82746; 83540; 83550; 85014; 85018; 85025; 86850; 86900; 86901; 88342; 93005; 96374; 99285; G0378; J2916

== ENCOUNTER 2024-05-20 04:29 | Inpatient (IN) | payer OTHER, SELFPAY ==
[2024-05-19 16:40] VITALS: BP 105/55
--- NOTE | 2024-05-19 16:43 | ED.GENMED ---
ED Provider Triage
<Cole Schroeder PA-C - Last Filed: 05/19/24 16:45>
-
Patient seen by provider in Triage?: Seen in Triage
Attestation: A medical screening examination has been initiated by a qualified medical provider. Based on the assessment performed at this time, it has been determined that an emergent medical condition may exist and the patient has been informed
that further medical evaluation and possible additional diagnostic testing may be needed.
HPI: 83-year-old male on Eliquis presents for reevaluation. He has been here twice in the recent past. Most recently for GI bleeding. He also has recently had thoracentesis performed. He presents with weakness and shortness of breath with
ongoing dark stools. He also notes lower abdominal comfort. No fever. He denies chest pain.
Vital signs are stable through triage. Will start workup with chest x-ray BNP CBC CMP type and screen
GENERAL: Alert , in no apparent distress
EYE: No visual abnormalities.
NECK: Trachea midline
ENT: No visible abnormalities.
LUNGS: No acute respiratory distress
NEUROLOGICAL: Alert and oriented
SKIN: Skin intact. No visible changes.
MUSCULOSKELETAL: Moving extremities normally
PSYCH: Normal and appropriate interaction.
This is a medical evaluation conducted in person to initiate diagnostic evaluation and provide initial therapeutics. Please see further documentation by the treating clinician.
History of Present Illness
<Cole Schroeder PA-C - Last Filed: 05/19/24 16:45>
General
Chief Complaint: Rectal Bleeding
Time Seen by Provider: 05/20/24 00:08
<Alex Munguia DO - Last Filed: 05/20/24 06:36>
General
Source: patient and family (Daughter)
History of Present Illness
History of Present Illness:
83-year-old male presents to the emergency room complaining of increasing shortness of breath of the past 2 days. Patient has had several medical issues arise over the past month. Patient was here recently for a GI bleed as well as being diagnosed
with a right pleural effusion. A thoracentesis performed. Patient also states that while in the hospital he had only clear liquids and had an endoscopy. Upon discharge his stool was normal in color. Over the past couple days has noticed that it
has again become dark leading him to believe he is having some bleeding again. He has some intermittent crampy abdominal pain but no pain at this time. He does take Eliquis. He was started on Lasix and is compliant with his Lasix. He becomes
quite short of breath with exertion.
Past History
<Cole Schroeder PA-C - Last Filed: 05/19/24 16:45>
Past History
ED Past Medical History: Arrthythmia (afib), CHF, HTN, Hypercholesterolemia, Renal failure, Valvular disease and Other (AAA)
ED Past Surgical History: Cardiac (aaa s/p repair;) and Other
Social History
Tobacco: Former smoker (Quit in 1987)
Alcohol: Occasional
Drug: None
Personal:
Living: alone
Phy Exam
<Alex Munguia DO - Last Filed: 05/20/24 06:36>
Physical Exam
Physical Exam:
General: Awake, Alert, Oriented X3. No acute distress, appears stated age
Vitals: unremarkable
Head: Atraumatic
Eyes: Pupils equal, EOMI
Throat: Airway intact, no exudates
Neck: Trachea midline
Lungs: Absent breath sounds right lower lung field
Heart: Regular rate, no murmurs
Abd: Soft, Nontender, No pulsatile mass
Rectal: Dark stool heme positive
Neuro: Nonfocal
Skin: Warm, dry, no rash
Extremities: pulses equal b/l, no edema
Course
<Cole Schroeder PA-C - Last Filed: 05/19/24 16:45>
Orders/Labs/Results
Orders:
Orders
05/19/24 16:44
Electrocardiogram (*1) Urgent
Reason for Study: Shortness of Breath
EKG- Treatment ONCE
CR Chest - 2 Views Urgent
Comment:
Reason For Exam: sob
05/19/24 16:59
Type+Screen Urgent
Complete Blood Count/With Diff Urgent
Comprehensive Metabolic Panel Urgent
NT-proBNP Urgent
05/20/24 02:00
Flush (0.9% Sodium Chloride) [Flush (Nss)] See Dose Instructions IV PER PROTOCOL
05/20/24 03:04
Admit/Transfer Patient As Directed
Co-Sign Provider:
Level of Care: Inpatient admission
Assign to:: Telemetry
Physician / Group: Dr. Celis (Hospitalist)
Diagnosis: GI bleed
Reason for Telemetry: Other
Other Reason for Telemetry: GI bleed
Date to Stop Telemetry: 05/22/24
Time to Stop Telemetry: 11:00
Reason for Hospitalization: GI bleed
Expected length of stay greater than two midnights?: Yes
ELOS- Estimated Length of Stay in days: 5
I certify the patient meets the requirements for IP care: Yes
05/20/24 03:05
PRN Pain Medication Management As Directed
May give lesser potent ordered pain med per pt: Yes
preference::
Protocol:: Medication orders for pain may be administered in a
manner that supports deferring to patient preference
when the pt is:
- Requesting an ordered lesser potent pain medication.
Least to most potent pain medications are defined
as: acetaminophen < NSAID < tramadol < opioids
(morphine, oxycodone, hydromorphone).
- Requesting a lesser dose of the same medication IF
ORDERED.
- Requesting a less intrusive route of administration
if both routes are prescribed by the provider (PO <
IV).
05/20/24 03:08
Code Status As Directed
Resuscitation Status: Full Code
05/20/24 03:29
Pantoprazole [Protonix IV] 40 mg IV NOW STA
05/20/24 03:31
0.9% Sodium Chloride [Nss (Preservative Free)] 10 ml IV NOW STA
05/20/24 05:06
Ondansetron Injectable [Zofran] 4 mg IV Q6HPRN PRN
05/20/24 05:06
Consult Notification Routine
Specialty to Notify: Gastroenterology
Consult Notification Routine
Specialty to Notify: IRAD (Interventional Radiology)
Consult Notification Routine
Specialty to Notify: Pulmonary
GASTROINTESTINAL CONSULT Routine
Consulting Provider: Hema Olson
Was physician already notified: No
Reason for consult: GI bleed
IRAD CONSULT Routine
Consulting Provider: Brandon Carrera
Was physician already notified: No
Reason for Consult/Procedure: Thoracentesis
Acknowledgement that appropriate orders are entered: Yes
PULMONARY CONSULT Routine
Consulting Provider: Joe Parada
Was physician already notified: No
Reason for consult: recurrent pulmonary edema
Activity As Directed
Activity Level: With Assistance
INT (Intravenous Needle Therapy) As Directed
Comment: Place 2 IV catheters of the largest bore possible until stable
Orthostatic Vital Signs As Directed
Orthostatic VS Frequency: Now
Comment: then every four hours for twenty-four hours
Pneumatic Compression Sleeves As Directed
Type: Knee high
Vital Signs As Directed
Frequency: Per unit guidelines
DX Deep Vein Thrombosis Video Routine
05/20/24 05:55
Basic Metabolic Panel IN AM
Complete Blood Count/No Diff IN AM
LDH IN AM
Total Protein IN AM
05/20/24 Breakfast
Clear Liquid
Acid Fast Culture & Smear Routine
COLT Source: Pleural Fluid
Specimen Description:
Comment: post procedure
Body Fluid Cell Count Routine
What is the Body Fluid: pleural fluid
Comment: post procedure
Body Fluid LDH Routine
Fluid Source: Pleural
Body Fluid Triglycerides Routine
Fluid Source: Pleural
Body Fluid pH Routine
Fluid Source: Pleural
Fluid Culture with Gram Stain Routine
COLT Source: Pleural Fluid
Specimen Description:
Comment: post procedure
IRAD Cytology Routine
Source: Pleural Fluid, Right
Clinical Impression: CHF
05/20/24 08:00
Atorvastatin [Lipitor] 20 mg PO DAILY
Furosemide [Lasix] 40 mg PO DAILY
Pantoprazole [Protonix IV] 40 mg IV BID
05/20/24 14:00
H&H Q8H
05/20/24 18:00
Metoprolol Xl [Toprol Xl] 25 mg PO QPM
05/20/24 22:00
H&H Q8H
05/21/24 06:00
H&H Q8H
05/21/24 14:00
H&H Q8H
05/21/24 22:00
H&H Q8H
05/22/24 06:00
H&H Q8H
05/22/24 11:00
DC Protocol for Telemetry ONCE
Abnormal Lab Results
05/19/24
16:59
WBC 11.0 H 10^3/uL
(4.8-10.8)
RBC 3.80 L 10^6/uL
(4.70-6.10)
Hgb 11.0 L g/dL
(13.0-18.0)
Hct 34.8 L %
(39.0-52.0)
MCHC 31.6 L g/dL
(33.0-37.0)
RDW 15.1 H %
(11.5-14.5)
MPV 11.3 H fL
(7.4-10.4)
Absolute Neuts (auto) 8.7 H 10^3/uL
(1.4-6.5)
Neutrophils % 79.5 H %
(42.2-75.2)
Lymphocytes % 14.3 L %
(20.5-51.1)
Potassium 3.3 L mmol/L
(3.5-5.1)
BUN 22 H mg/dl
(9-20)
Creatinine 1.5 H mg/dL
(0.7-1.3)
Glucose 145 H mg/dl
(70-99)
05/19/24 16:59
05/19/24 16:59
Vital Signs
Initial and Last Documented VS:
Initial Vital Signs
Temp Pulse Resp BP Pulse Ox
97.8 F 74 18 105/55 97
05/19/24 16:40 05/19/24 16:40 05/19/24 16:40 05/19/24 16:40 05/19/24 16:40
Last Documented Vital Signs
Temp Pulse Resp BP Pulse Ox
98.3 F 67 25 122/61 95
05/20/24 01:22 05/20/24 04:00 05/20/24 04:00 05/20/24 04:00 05/20/24 01:30
Abdulkadirlt;Alex Munguia, DO - Last Filed: 05/20/24 06:36>
Orders/Labs/Results
Orders:
Orders
05/19/24 16:44
Electrocardiogram (*1) Urgent
Reason for Study: Shortness of Breath
EKG- Treatment ONCE
CR Chest - 2 Views Urgent
Comment:
Reason For Exam: sob
05/19/24 16:59
Type+Screen Urgent
Complete Blood Count/With Diff Urgent
Comprehensive Metabolic Panel Urgent
NT-proBNP Urgent
05/20/24 02:00
Flush (0.9% Sodium Chloride) [Flush (Nss)] See Dose Instructions IV PER PROTOCOL
05/20/24 03:04
Admit/Transfer Patient As Directed
Co-Sign Provider:
Level of Care: Inpatient admission
Assign to:: Telemetry
Physician / Group: Dr. Celis (Hospitalist)
Diagnosis: GI bleed
Reason for Telemetry: Other
Other Reason for Telemetry: GI bleed
Date to Stop Telemetry: 05/22/24
Time to Stop Telemetry: 11:00
Reason for Hospitalization: GI bleed
Expected length of stay greater than two midnights?: Yes
ELOS- Estimated Length of Stay in days: 5
I certify the patient meets the requirements for IP care: Yes
05/20/24 03:05
PRN Pain Medication Management As Directed
May give lesser potent ordered pain med per pt: Yes
preference::
Protocol:: Medication orders for pain may be administered in a
manner that supports deferring to patient preference
when the pt is:
- Requesting an ordered lesser potent pain medication.
Least to most potent pain medications are defined
as: acetaminophen < NSAID < tramadol < opioids
(morphine, oxycodone, hydromorphone).
- Requesting a lesser dose of the same medication IF
ORDERED.
- Requesting a less intrusive route of administration
if both routes are prescribed by the provider (PO <
IV).
05/20/24 03:08
Code Status As Directed
Resuscitation Status: Full Code
05/20/24 03:29
Pantoprazole [Protonix IV] 40 mg IV NOW STA
05/20/24 03:31
0.9% Sodium Chloride [Nss (Preservative Free)] 10 ml IV NOW STA
05/20/24 05:06
Ondansetron Injectable [Zofran] 4 mg IV Q6HPRN PRN
05/20/24 05:06
Consult Notification Routine
Specialty to Notify: Gastroenterology
Consult Notification Routine
Specialty to Notify: IRAD (Interventional Radiology)
Consult Notification Routine
Specialty to Notify: Pulmonary
GASTROINTESTINAL CONSULT Routine
Consulting Provider: Hema Olson
Was physician already notified: No
Reason for consult: GI bleed
IRAD CONSULT Routine
Consulting Provider: Brandon Carrera
Was physician already notified: No
Reason for Consult/Procedure: Thoracentesis
Acknowledgement that appropriate orders are entered: Yes
PULMONARY CONSULT Routine
Consulting Provider: Joe Parada
Was physician already notified: No
Reason for consult: recurrent pulmonary edema
Activity As Directed
Activity Level: With Assistance
INT (Intravenous Needle Therapy) As Directed
Comment: Place 2 IV catheters of the largest bore possible until stable
Orthostatic Vital Signs As Directed
Orthostatic VS Frequency: Now
Comment: then every four hours for twenty-four hours
Pneumatic Compression Sleeves As Directed
Type: Knee high
Vital Signs As Directed
Frequency: Per unit guidelines
DX Deep Vein Thrombosis Video Routine
05/20/24 05:55
Basic Metabolic Panel IN AM
Complete Blood Count/No Diff IN AM
LDH IN AM
Total Protein IN AM
05/20/24 Breakfast
Clear Liquid
Acid Fast Culture & Smear Routine
COLT Source: Pleural Fluid
Specimen Description:
Comment: post procedure
Body Fluid Cell Count Routine
What is the Body Fluid: pleural fluid
Comment: post procedure
Body Fluid LDH Routine
Fluid Source: Pleural
Body Fluid Triglycerides Routine
Fluid Source: Pleural
Body Fluid pH Routine
Fluid Source: Pleural
Fluid Culture with Gram Stain Routine
COLT Source: Pleural Fluid
Specimen Description:
Comment: post procedure
IRAD Cytology Routine
Source: Pleural Fluid, Right
Clinical Impression: CHF
05/20/24 08:00
Atorvastatin [Lipitor] 20 mg PO DAILY
Furosemide [Lasix] 40 mg PO DAILY
Pantoprazole [Protonix IV] 40 mg IV BID
05/20/24 14:00
H&H Q8H
05/20/24 18:00
Metoprolol Xl [Toprol Xl] 25 mg PO QPM
05/20/24 22:00
H&H Q8H
05/21/24 06:00
H&H Q8H
05/21/24 14:00
H&H Q8H
05/21/24 22:00
H&H Q8H
05/22/24 06:00
H&H Q8H
05/22/24 11:00
DC Protocol for Telemetry ONCE
Abnormal Lab Results
05/19/24
16:59
WBC 11.0 H 10^3/uL
(4.8-10.8)
RBC 3.80 L 10^6/uL
(4.70-6.10)
Hgb 11.0 L g/dL
(13.0-18.0)
Hct 34.8 L %
(39.0-52.0)
MCHC 31.6 L g/dL
(33.0-37.0)
RDW 15.1 H %
(11.5-14.5)
MPV 11.3 H fL
(7.4-10.4)
Absolute Neuts (auto) 8.7 H 10^3/uL
(1.4-6.5)
Neutrophils % 79.5 H %
(42.2-75.2)
Lymphocytes % 14.3 L %
(20.5-51.1)
Potassium 3.3 L mmol/L
(3.5-5.1)
BUN 22 H mg/dl
(9-20)
Creatinine 1.5 H mg/dL
(0.7-1.3)
Glucose 145 H mg/dl
(70-99)
05/19/24 16:59
05/19/24 16:59
Vital Signs
Initial and Last Documented VS:
Initial Vital Signs
Temp Pulse Resp BP Pulse Ox
97.8 F 74 18 105/55 97
05/19/24 16:40 05/19/24 16:40 05/19/24 16:40 05/19/24 16:40 05/19/24 16:40
Last Documented Vital Signs
Temp Pulse Resp BP Pulse Ox
98.3 F 67 25 122/61 95
05/20/24 01:22 05/20/24 04:00 05/20/24 04:00 05/20/24 04:00 05/20/24 01:30
<Alex Munguia DO - Last Filed: 05/20/24 06:36>
MDM/Problems Addressed
Differential Diagnosis Includes:
Symptomatic anemia, CHF, pleural effusion, pneumonia
MDM/Problems Addressed:
Patient presents with couple issues. First is increased shortness of breath. This turns out to be from reaccumulation of a large pleural effusion. Patient had a thoracentesis during most recent hospitalization. Patient also concerned he is
having recurrent GI bleeding. He does have heme positive stool but it does not appear melanotic. His hemoglobin is improved compared to discharge. Patient will require hospitalization for monitoring of his hemoglobin and for thoracentesis.
<Alex Munguia DO - Last Filed: 05/20/24 06:36>
*Radiology
Radiology exam reviewed: preliminary read by ED provider (Quadrant pleural effusion)
*Pulse Oximetry
Patient hypoxic: no
*EKG
Heart Rate: 73
Rate: normal
Rhythm: av sequential
Ischemia: non-specific ST changes
*[employer] Interpretation
Rate: normal
Interpretation: abnormal
Rhythm: av sequential
*Critical Care Note
Total Time (30-74mins, 75-104mins- exclusive of procedures): Not Applicable
Data Reviewed
Review of Other/Old Records Reveals: Labs (From recent hospitalization) and Operative Reports (Endoscopy report)
<Alex Munguia DO - Last Filed: 05/20/24 06:36>
Patient Management
Social determinants of health affecting care: Living situation
ED Attending Note
<Cole Schroeder PA-C - Last Filed: 05/19/24 16:45>
-
Portions of this chart may have been created with voice recognition software.� Occasional wrong word or��sound alike� substitutions may have occurred due to the inherent limitations of voice recognition software.
Discharge Plan
Departure
Patient Disposition: Admit
Date of Disposition: 05/20/24
Time of Disposition: 03:55
Admit to: Med/Surg
Presentation/result/management discussed w/ accepting MD/DO: Hospitalist
Condition: Fair
Discharge Problem:
Pleural effusion on right, Shortness of breath, Acute GI bleeding
Interventions
Interventions:
*Risk Screen - Suicide Last Done: 05/19/24 16:40
*General Assessment Last Done: 05/19/24 16:40
*Neglect/Abuse Screening Last Done: 05/20/24 01:22
ED- Fall Risk Assessment Last Done: 05/20/24 01:22
*ED COVID-19 Vaccine History Last Done: 05/19/24 16:40
*Nursing Disposition Last Done: 05/20/24 03:20
HG-Jbkbqu-Ziviuzddip Assessment Last Done: 05/20/24 01:22
ED- Cardiac Assessment Last Done: 05/20/24 01:22
ED- Pulmonary Assessment Last Done: 05/20/24 01:22
[2024-05-19 17:23] LABS: % Basophils 0.5 % (0-2); % Eosinophils 0.5 % (0-6); % Immature Granulocytes 0.3 % (0-0.5); % Lymphocytes 14.3 % (20.5-51.1); % Monocytes 4.9 % (1.7-9.3); % Neutrophils 79.5 % (42.2-75.2); Absolute Basophils 0.1 10^3/uL (0-0.2); Absolute Eosinophils 0.1 10^3/uL (0-0.7); Absolute Lymphocytes 1.6 10^3/uL (1.2-3.4); Absolute Monocytes 0.5 10^3/uL (0.1-0.6); Absolute Neutrophils 8.7 10^3/uL (1.4-6.5); Hematocrit 34.8 % (39.0-52.0); Mean Corp Hgb Conc. 31.6 g/dL (33.0-37.0); Mean Corpuscular Hgb 28.9 pg (27.0-31.0); Mean Corpuscular Volume 91.6 fL (80.0-94.0); Mean Platelet Volume 11.3 fL (7.4-10.4); Nucleated Red Blood Cells % 0 % (-); Platelet Count 196 10^3/uL (130-400); Red Cell Dist. Width 15.1 % (11.5-14.5)
[2024-05-19 17:35] LABS: ALT (SGPT) 28 U/L (0-50); AST (SGOT) 59 U/L (17-59); Albumin 3.8 g/dl (3.5-5.0); Alkaline Phosphatase 103 U/L (38-126); Blood Urea Nitrogen 22 mg/dl (9-20); Calcium 8.4 mg/dl (8.4-10.2); Carbon Dioxide 22 mmol/L (22-30); Chloride 103 mmol/L (98-107); Glucose 145 mg/dl (70-99); Potassium 3.3 mmol/L (3.5-5.1); Sodium 138 mmol/L (135-145); Total Bilirubin 0.8 mg/dl (0.2-1.3); Total Protein 8.1 g/dl (6.3-8.2); eGFR 46.48
[2024-05-19 17:39] LABS: NT-proBNP 1100 pg/ml
[2024-05-19 20:07] VITALS: BP 112/50
[2024-05-19 23:00] VITALS: BP 138/60
[2024-05-20] VITALS (18 sets, daily range): BP systolic 68–136; BP diastolic 47–93; PULSE 74–92; BMI 23.9; BMI 24.8; BMI 23.1
--- NOTE | 2024-05-20 02:39 | HPS.HSE ---
Family Physician
-
Family Physician: Santino Lopez
Chief Complaint
-
Dark stools and shortness of breath.
History of Present Illness
This is an 83-year-old with complex past medical history including heart failure with reduced EF status post DOOR LINER-D�D/AICD, paroxysmal atrial fibrillation on anticoagulation with Eliquis, CKD 3, hypertension, AAA status post EVAR, history of alcohol
use, hypertension presenting to the emergency department with shortness of breath and dark stool.
Of note patient's had recent history of admission for shortness of breath where he was found to have a transudative pleural effusion status post large-volume thoracentesis. Respiratory symptoms improved and patient never required oxygen. He had an
echocardiogram which showed recovery of ejection fraction to 55%. proBNP was not significantly elevated at that time and patient did not appear hypovolemic. There was suspicion of possible malignant effusion and the plan was to perform a cytology
if there is rapid recurrence of the effusion. He now comes in with shortness of breath and was found to have recurrence of the effusion.
Patient was also discharged on increased dose of Eliquis to 5 mg during that discharge on May 07. He was rehospitalized a few days later with GI bleed thought to be secondary to Eliquis. He underwent EGD which showed erythematous granular and
mild nodule and petechial mucosa in the antrum and prepyloric region of the stomach s/p biopsy. He was placed on Protonix twice daily. Eliquis dosing was reduced to 2.5 mg twice daily by Dr. Morales and patient was discharged home.
Patient reported that after discharge his stool did clear to brown color. However about 3 days later he started noticing dark-colored but formed stool. The following day he continued. There was no associated abdominal pain or discomfort.
He states that he continued to have dyspnea on exertion and shortness of breath at the same time but no chest pain nausea or vomiting.
In the emergency department was found to have tach and heme positive stool.
Blood pressure was 138/60 with a pulse of 70 satting 95% on room air. Hemoglobin was improved compared to prior at 11. CBC was otherwise unremarkable. Electrolytes BUN/creatinine were stable. BNP was 1100. ECG shows AV dual paced rhythm.
Medical History
Past Medical History
Past Medical History: Reports Arrhythmia (Paroxysmal atrial fibrillation on anticoagulation, status post ablation, status post PPM), CHF (CHF with reduced EF, status post DOOR LINER-D/AICD), HTN and Renal Failure (Stage IIIb CKD)
Additional Past Medical History:
History of GI bleed
AAA without rupture status post EVAR
Past Surgical History: Reports Other
Social History
Tobacco: Non-smoker
Alcohol: Occasional
Drug: None
Family History
Family History: Not pertinent
Allergies / Home Medications
Allergies reflects when Allergies were last updated in [facility].
Home Medications with original date entered in [facility]
Allergy/Medication List:
Allergies
Allergy/AdvReac Type Severity Reaction Status Date / Time
Penicillins Allergy over 40 Verified 05/19/24 16:46
years ago,
localized
arm skin
peeling
Home Medications
atorvastatin 20 mg tablet 20 mg PO DAILY High Cholesterol 04/03/23
docusate sodium 100 mg capsule (Stool Softener) 100 mg PO HS Constipation 07/12/23
melatonin 10 mg tablet 10 mg PO HS Sleep 07/12/23
metoprolol succinate 25 mg tablet,extended release 24 hr 25 mg PO QPM Blood Pressure 05/06/24
furosemide 40 mg tablet 40 mg PO DAILY Heart Failure 1 month #30 tabs 05/07/24
therapeutic multivitamin 1 tab PO DAILY 05/12/24
apixaban 2.5 mg tablet (Eliquis) 2.5 mg PO BID #0 tabs 05/14/24
pantoprazole 40 mg tablet,delayed release (Protonix) 40 mg PO BID #60 tabs 05/14/24
Review of Systems
-
History Source: Patient
Constitutional: Reports No Symptoms
EENT: Reports No Symptoms
Respiratory: Reports Trouble Breathing
Cardiac: Reports No Symptoms
Abdomen/GI: Reports Black Stools
: Reports No Symptoms
Musculoskeletal: Reports No Symptoms
Skin: Reports No Symptoms
Neurological: Reports No Symptoms
Psych: Reports No Symptoms
Physical Exam
Vital Signs
Vital Signs
Temp Pulse Resp BP Pulse Ox
98.3 F 70 16 138/60 95
05/20/24 01:22 05/20/24 01:15 05/20/24 01:15 05/19/24 23:00 05/20/24 01:22
Physical Exam
General: Well Developed, Well Nourished and Comfortable
HEENT: NormoCephalic, Anicteric, Moist mucous membranes and Atraumatic
Respiratory: Clear
Cardiac: S1/S2 and Regular Rhythm
Breast: Deferred by me
GI: Soft, Non Tender, Non Distended and Normal Bowel Sounds
Rectal: Deferred by Provider
Genito-urinary: Deferred by me
Musculoskeletal: No Clubbing, No Cyanosis and No Edema
Neuro: AO x 3 and Nonfocal/grossly intact
Hematologic/Lymphatic: No Lymphadenopathy
Psych: Calm
Laboratory Results
-
05/19/24 16:59
05/19/24 16:59
Laboratory Results
Total Bilirubin 0.8 mg/dl (0.2-1.3) 05/19/24 16:59
AST 59 U/L (17-59) 05/19/24 16:59
ALT 28 U/L (0-50) 05/19/24 16:59
Alkaline Phosphatase 103 U/L (38-126) 05/19/24 16:59
Data Reviewed
-
Diagnostic Radiology: Image Personally Visualized and interpreted and Report Reviewed by me
Medical Tests (Nuc Med, Echo, EKG etc): Image Personally Visualized and interpreted
Lab Data: Labs Reviewed by me
Impression/Plan
-
IMPRESSION:
83-year-old with a history of proximal atrial fibrillation, CHF with depressed EF status post pacemaker AICD, recent R effusion transudative on large volume thoracentesis now reaccumulated.
PLAN:
1. Recurrent pleural effusion -this likely explains his dyspnea on exertion and shortness of breath. Patient's weight is stable he does not look particularly volume overloaded. He has no peripheral edema or JVD. Her BNP is stable. He has been
compliant with 40 mg of Lasix daily.
- admit to telemetry
- IR consult with diagnostic and therapeutic thoracentesis and cytology this time.
- pulmonary consult
- continue lasix and fluid restrictions
- pending results of cytology/fluid analysis may need adjustment of diuretics.
- CHF and renal appears stable.
- consider cardiology consult after fluid analysis
2. GI bleed - Recurrent GI bleed. HD stable and Hgb stable. Recent EGD results suggests eliquis associated bleeding and eliquis reduced.
- clear liquid diet for now
- hold eliquis
- ppi iv bid
- if improved after holding eliquis may consider alternative to anticoagulation in afib such as watchman.
3. AFIB
- holding eliquis
- continue metoprolol
DVT PPX - SCDs
Code status - full code
[2024-05-20] MEDS: NSS (PRESERVATIVE FREE) 10 ML IV ×3 (05:51→20:22)
[2024-05-20] MEDS: PROTONIX IV 40 MG IV ×3 (05:52→20:22)
[2024-05-20 06:29] LABS: Blood Urea Nitrogen 25 mg/dl (9-20); Carbon Dioxide 23 mmol/L (22-30); Chloride 107 mmol/L (98-107); Estimated Creatinine Clearance 45 ml/min; Glucose 98 mg/dl (70-99); LDH 164 U/L (120-246); Potassium 3.4 mmol/L (3.5-5.1); Sodium 140 mmol/L (135-145); Total Protein 6.4 g/dl (6.3-8.2); eGFR 50.49
[2024-05-20 07:08] LABS: Hematocrit 27.3 % (39.0-52.0); Hemoglobin 8.7 g/dL (13.0-18.0); Mean Corp Hgb Conc. 31.9 g/dL (33.0-37.0); Mean Corpuscular Hgb 29.5 pg (27.0-31.0); Mean Corpuscular Volume 92.5 fL (80.0-94.0); Mean Platelet Volume 11.6 fL (7.4-10.4); Platelet Count 134 10^3/uL (130-400); Red Blood Cell Count 2.95 10^6/uL (4.70-6.10); Red Cell Dist. Width 15.1 % (11.5-14.5); White Blood Cell Count 8.9 10^3/uL (4.8-10.8)
--- NOTE | 2024-05-20 07:10 | CON.GI ---
Addendum entered and electronically signed by Theresa Avilez DO 05/20/24 14:23:
The patient was seen and examined by me independently in collaboration with the nurse practitioner.
Past medical history/social history/medications/allergies/family history reviewed.
Lab data and imaging data reviewed.
Brandon Fatima is an 83 y.o. male with past medical history of NICM, HFrEF (EF 30-35%), pAfib, prior PVI ablation, CKD, HLD, AAA s/p repair, [facility] admitted with SOB and melena found to be anemic with concern for ongoing GI bleeding as well as findings
of recurrent right pleural effusion s/p repeat IR thoracentesis earlier this afternoon. Hemoglobin dropped from 11 --> 8.7 overnight. Of note, he was recently admitted to twice in the last 2 weeks, 05/07 was here with right pleural effusion s/p
thoracentesis, eliquis was increased from 2.5 mg daily to 5 mg BID, then readmitted from 05/12-05/14 with GI bleeding s/p EGD with Dr. Elias without identifiable source of bleeding found. He had some mild granularity, erythema and petechia in the
prepyloric region of the stomach, endoscopically not felt to be c/w GAVE or significant for source of acute blood loss and this was not treated. The patient had deferred colonsocopy and his eliquis dose was lowered back to 2.5 mg daily. His
hemoglobin at discharge was 9.6.
On current admission, patient has dark brown, heme positive stool.
Discussed concern for ongoing GI bleeding-- suspect slow oozing, likely AVM from small bowel vs. colonic source. Spoke to patient and daughter, Tatyana on phone at length. Recommend Enteroscopy and Colonocopy as long as respiratory status/pulmonary
clearance. They are agreeable to plan.
A/P:
IV PPI BID
Okay for diet tonight
Clear liquid diet tomorrow with plans for enteroscopy/colonoscopy with Dr. Olson on 05/22, pending pulmonary clearance
Hold eliquis
Original Note:
Consultation
-
Date/Time Consultation Requested: 05/20/24529
Date/Time Consultation Performed: 05/20/24814
Requesting Provider: NIKOLAY Oconnor
Performing Provider: NIKOLAY Harvey, Kris Olson MD
Reason for Consultation: GI bleed
Medical History
Chief Complaint / HPI
Chief Complaint: black stools
History of Present Illness:
83-year-old male with past medical history of nonischemic cardiomyopathy, heart failure with reduced ejection fraction (30 to 35% with repeat 05/07 56%), paroxysmal A-fib, prior PVI ablation, chronic kidney disease, hyperlipidemia, abdominal aortic
aneurysm status postrepair, prior ETOH use, AICD with admission with shortness of breath and dark stools. In review of records multiple recent admission. 05/07 with noted right pleural effusion with thoracentesis. Pt was on Eliquis 2.5 mg daily
and increased to 5mg BID. He was then admitted 05/12 til 05/14 with GI bleeding. He completed EGD with Dr. Elias with noted erythema, granular, mild nodular and petchial mucosa in antrum and prepyloric region of stomach. Otherwise normal without
ulcers, lesion, AVM or old/fresh blood. During that admission Eliquis was changed back to 2.5mg BID. He now returns with shortness of breath. On admission noted with hbg 11 with drop to 8.7. Dark heme + stool in ER exam. No NSAID use.
Pt states some dark stools since last week with stool every day to every other day without large volume and formed. He does admits to some chronic occasional red blood with hx hemorrhoids. He denies dysphagia, GERD, nausea, vomiting, diarrhea,
constipation but did have some lower abdominal pain. Last colonoscopy years ago in [place]- around 2013 recalls as normal.
Past Medical History
Past Medical History: Arrhythmias (PAF on Eliquis ), CHF, HTN, Renal Failure (CKD), Valvular Disease and Other (ETOH abuse, pleural effusion s/p large volume thoracentesis )
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
Social History
Tobacco: Former Smoker (quit 1987)
Alcohol: Occasional (rare)
Drug: None
Living: Alone
Employment: Retired
Family History
Family History: Other (mother with stomach CA)
Allergies / Home Medications
Allergy/AdvReac Type Severity Reaction Status Date / Time
Penicillins Allergy over 40 Verified 05/19/24 16:46
years ago,
localized
arm skin
peeling
�Medication �Instructions �Recorded
atorvastatin 20 mg tablet 20 mg PO DAILY High Cholesterol 04/03/23
docusate sodium 100 mg capsule 100 mg PO HS Constipation 07/12/23
(Stool Softener)
melatonin 10 mg tablet 10 mg PO HS Sleep 07/12/23
metoprolol succinate 25 mg 25 mg PO QPM Blood Pressure 05/06/24
tablet,extended release 24 hr
furosemide 40 mg tablet 40 mg PO DAILY Heart Failure 1 05/07/24
month #30 tabs
therapeutic multivitamin 1 tab PO DAILY 05/12/24
apixaban 2.5 mg tablet (Eliquis) 2.5 mg PO BID #0 tabs 05/14/24
pantoprazole 40 mg tablet,delayed 40 mg PO BID #60 tabs 05/14/24
release (Protonix)
Review of Systems
-
History Source: Patient
Constitutional: Reports No Symptoms
EENT: Reports No Symptoms
Respiratory: Reports Cough (with mucous at times ) and Trouble Breathing (on admission)
Cardiac: Reports Chest Pain (occasional )
Abdomen/GI: Reports Abdominal Pain (mild lower abdomen ) and Other (dark stools occasional red blood )
: Reports No Symptoms
Musculoskeletal: Reports No Symptoms
Skin: Reports No Symptoms
Neurological: Reports Weakness
Endocrine: Reports No Symptoms
Hematologic/Lymphatic: Reports Bleeding
Vital Signs
Temp Pulse Resp BP Pulse Ox
98.3 F 67 16 122/93 95
05/20/24 01:22 05/20/24 06:30 05/20/24 06:30 05/20/24 06:00 05/20/24 01:30
Physical Exam
Exam
General: Well Developed, Well Nourished and No Apparent Distress
HEENT: Normocephalic and Anicteric
Respiratory: Other (decreased )
Cardiac: Regular Rhythm
GI: Soft, Non Tender and Non Distended
Rectal: Other (dark heme + per ER)
Musculoskeletal: No Clubbing and No Cyanosis
Skin: Warm and Dry
Neuro: Awake, Alert and AO x 3
Psych: Calm
Results
WBC 8.9 10^3/uL (4.8-10.8) 05/20/24 05:55
Hgb 8.7 g/dL (13.0-18.0) L D 05/20/24 05:55
Hct 27.3 % (39.0-52.0) L 05/20/24 05:55
MCV 92.5 fL (80.0-94.0) 05/20/24 05:55
Plt Count 134 10^3/uL (130-400) D 05/20/24 05:55
Absolute Neuts (auto) 8.7 10^3/uL (1.4-6.5) H 05/19/24 16:59
Sodium 140 mmol/L (135-145) 05/20/24 05:55
Potassium 3.4 mmol/L (3.5-5.1) L 05/20/24 05:55
Chloride 107 mmol/L (98-107) 05/20/24 05:55
Carbon Dioxide 23 mmol/L (22-30) 05/20/24 05:55
BUN 25 mg/dl (9-20) H 05/20/24 05:55
Creatinine 1.4 mg/dL (0.7-1.3) H 05/20/24 05:55
Calcium 8.0 mg/dl (8.4-10.2) L 05/20/24 05:55
Total Bilirubin 0.8 mg/dl (0.2-1.3) 05/19/24 16:59
AST 59 U/L (17-59) 05/19/24 16:59
ALT 28 U/L (0-50) 05/19/24 16:59
Alkaline Phosphatase 103 U/L (38-126) 05/19/24 16:59
Diagnostic Image Results:
05/19/24 CXR -Moderate loculated right pleural effusion. Significantly increased in quantity.
05/07/24 CT Chest W/o Iv Contrast
Findings suggesting bilateral lower lobe pneumonia, right greater than left.
Moderate right pleural effusion
05/06/24 thoracentesis
Successful ultrasound-guided thoracentesis, yielding 1750 cc of clear yellow pleural fluid.
Prior GI Procedures:
EGD: 05/14 stone Normal esophagus.
- Z-line regular, 42 cm from the incisors.
- Erythematous, granular, mild nodular and petechial
mucosa in the antrum and prepyloric region of the
stomach. Biopsied to rule out H pylori.
- Otherwise, normal stomach on direct and retroflexion
views.
- Normal examined duodenum up to the second portion.
- The examination was otherwise normal without any
ulcerations, lesions, AVMs or other old/fresh blood
throughout the upper examined GI tract.
Colonoscopy: Per chart 2014 at [facility]. Per him negative. Records not available to us
Assessment / Plan
-
83-year-old male with past medical history of nonischemic cardiomyopathy, heart failure with reduced ejection fraction (30 to 35% with repeat 05/07 with 56%), paroxysmal A-fib, prior PVI ablation, chronic kidney disease, hyperlipidemia, abdominal
aortic aneurysm status postrepair, prior ETOH use, AICD with admission with shortness of breath and dark stools. In review of records multiple recent admission. 1/22 with noted right pleural effusion with thoracentesis. Pt was on Eliquis 2.5 mg
daily and increased to 5mg BID. He was then admitted 05/12 til 05/14 with GI bleeding. He completed EGD with Dr. Elias with noted erythema, granular, mild nodular and petchial mucosa in antrum and prepyloric region of stomach. Otherwise normal
without ulcers, lesion, AVM or old/fresh blood. During that admission Eliquis was changed back to 2.5mg BID. He now returns with shortness of breath. On admission noted with hbg 11 with drop to 8.7. Dark heme + stool in ER exam. No NSAID use.
-dark heme + stool
-recent admission with GI bleed s/p stable EGD after Eliquis dose increased
-anemia with drop in hbg after admission
-pleural effusion with prior thoracentesis and increased fluid on CXR on admission
-afib on Eliquis prior to admission with recent dose changes
other med problems:
-non ischemic CM
-HFrEF recent EF improved on Echo
-PVI/ablation
-CKD
-hyperlipidemia
-AAA with repair
-prior ETOH use
-AICD
PLAN:
etiology of shortness of breath related to recurrent effusion vs anemia vs other
for IR eval for repeat thora
hbg with some drop after admission 11-8.7 cont to follow hbg/BUN
bleeding may have initially been triggered with increased Eliquis dosing now recently lower dose
cont to hold Eliquis last dose 2/3
s/p EGD 05/14
cont PPI BID
will review with Dr. Olson for enteroscopy and colonoscopy if bleeding/anemia persists when improved from resp standpoint with noted effusion
for pulm eric
ok for clear diet
will follow
-
-
Thank you for consultation and allowing me to participate in the patient's care. Please call the fashion styling intern GI physician during the after hours with any questions or concerns.
--- NOTE | 2024-05-20 08:06 | CON.PUL ---
Consultation
Consultation Request
Date/Time Consultation Requested: 05/20/2024505
Date/Time Consultation Performed: 05/20/2024801
Requesting Provider: Dr. Craig
Performing Provider: Dr. Jamison
Reason for Consultation: R-plerual effusion/SOB
Medical History
-
Chief Complaint: SOB + rectal bleeding/abdominal pain
History of Present Illness:
83-year-old male former tobacco smoker with a past medical history of paroxysmal A-fib on Eliquis, AAA without rupture, chronic HFpEF/NICM, hypertension, hyperlipidemia, and CKD stage 3b who presents with worsening SOB for 3 days. Also having
continued dark stool and abdominal discomfort. He was recently hospitalized from 05/12 - 05/14/2024 for an acute GI bleed and underwent EGD on 05/14/2024 showing an erythematous, granular, mild nodular and petechial mucosa in the antrum and prepyloric
region of the stomach with otherwise normal stomach and normal examined duodenum up to the second portion. Hb on discharge was 9.6. Prior to that he was hospitalized from 05/06 - 05/07/2024, with a right-sided pleural effusion and he underwent a
thoracentesis on 05/06/2024 removing 1700 cc of clear transudative fluid, and cardiology raise his Lasix from 20 mg daily to 40 mg daily. Currently, in the ER he was afebrile to 97.8 �F, pulse rate 74, breathing at 18 breaths/minute, BP 105/55 and
saturating 97% on room air. Labs showed Hb 11, WBC 11, potassium 3.3, creatinine 1.5, BUN 22, and proBNP 1100. CXR showed a moderate loculated right pleural effusion which was increased compared to prior CXR on 05/06/2024. He was admitted to
telemetry and on 06/10 he underwent a thoracentesis of the right side removing 2000 cc of transudative fluid. Pulmonary service now consulted for additional management/recommendations.
When I saw the patient he was resting in bed, in no acute distress and breathing comfortably on room air. He currently denies fevers or chills. He does have a dry cough. He thinks that he is breathing better since the thoracentesis but he says he
is not sure until he starts to do more activity. I spoke with his daughter, Shadia, over the phone and answered all of her questions. She is concerned as this is now the second time that his right-sided pleural fluid has come back to the point
where it need to be removed via thoracentesis.
PMHx: Chronic HFpEF/NICM, hypertension, AAA s/p EVAR, hyperlipidemia, paroxysmal A-fib on Eliquis, CKD stage 3b, history of alcohol use
PSHx: Pacemaker, cardioversion, ablation (01/15/2024), EVAR
Past Medical History
Past Medical History: Other (Above as per HPI)
Past Surgical History: Other (Above as per HPI)
Social History
Tobacco: Former Smoker
Alcohol: Occasional
Drug: None
Family History
Family History: CAD (Father + mother) and Other (Mother: History of rheumatic fever)
Allergies / Home Medications
Allergies
Allergy/AdvReac Type Severity Reaction Status Date / Time
Penicillins Allergy over 40 Verified 05/19/24 16:46
years ago,
localized
arm skin
peeling
Home Medications
�Medication �Instructions �Recorded �Confirmed �Last Taken �Type
atorvastatin 20 mg tablet 20 mg PO DAILY High Cholesterol 04/03/23 05/20/24 05/12/24 History
docusate sodium 100 mg capsule 100 mg PO HS Constipation 07/12/23 05/20/24 05/11/24 History
(Stool Softener)
melatonin 10 mg tablet 10 mg PO HS Sleep 07/12/23 05/20/24 05/11/24 History
metoprolol succinate 25 mg 25 mg PO QPM Blood Pressure 05/06/24 05/20/24 05/11/24 History
tablet,extended release 24 hr
furosemide 40 mg tablet 40 mg PO DAILY Heart Failure 1 05/07/24 05/20/24 05/12/24 Rx
month #30 tabs
therapeutic multivitamin 1 tab PO DAILY 05/12/24 05/20/24 05/12/24 History
apixaban 2.5 mg tablet (Eliquis) 2.5 mg PO BID #0 tabs 05/14/24 05/20/24 05/12/24 Rx
pantoprazole 40 mg tablet,delayed 40 mg PO BID #60 tabs 05/14/24 05/20/24 Unknown Rx
release (Protonix)
Review of Systems
-
History Source: Patient
All other systems: Negative unless noted
Vitals / Labs / Diagnostic Testing
Vital Signs
Temp Pulse Resp BP Pulse Ox
98.3 F 67 16 122/93 95
05/20/24 01:22 05/20/24 06:30 05/20/24 06:30 05/20/24 06:00 05/20/24 01:30
Lab Data
05/20/24 05:55
Diagnostic Testing:
Physical Exam
-
HEENT: Normocephalic and Anicteric
Cardiovascular: S1/S2 and Peripheral Edema (negative)
Respiratory: Wheeze (negative), Rales (Bilateral at the bases), Rhonchi (negative) and Non-Labored Respirations
GI: Soft, Non Distended, Non Tender and Normal Bowel Sounds
Neurology: AO x 3 and Tremors (negative)
Skin: Warm and Dry
General: Respiratory Distress (negative), Comfortable, Fever (negative) and Chills (negative)
Assessment
-
Assessment: 83-year-old male former tobacco smoker with a past medical history of paroxysmal A-fib on Eliquis, AAA without rupture, chronic HFpEF/NICM, hypertension, hyperlipidemia, and CKD stage 3b who presents with worsening SOB for 3 days. Also
having continued dark stool and abdominal discomfort. He was recently hospitalized from 05/12 - 05/14/2024 for an acute GI bleed and underwent EGD on 05/14/2024 showing an erythematous, granular, mild nodular and petechial mucosa in the antrum and
prepyloric region of the stomach with otherwise normal stomach and normal examined duodenum up to the second portion. Hb on discharge was 9.6. Prior to that he was hospitalized from 05/06 - 05/07/2024, with a right-sided pleural effusion and he
underwent a thoracentesis on 05/06/2024 removing 1700 cc of clear transudative fluid, and cardiology raise his Lasix from 20 mg daily to 40 mg daily. Currently, in the ER he was afebrile to 97.8 �F, pulse rate 74, breathing at 18 breaths/minute, BP
105/55 and saturating 97% on room air. Labs showed Hb 11, WBC 11, potassium 3.3, creatinine 1.5, BUN 22, and proBNP 1100. CXR showed a moderate loculated right pleural effusion which was increased compared to prior CXR on 05/06/2024. He was
admitted to telemetry and on 06/10 he underwent a thoracentesis of the right side removing 2000 cc of transudative fluid. Pulmonary service now consulted for additional management/recommendations.
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
Impression:
#SOB likely due to acute decompensated heart failure with right-sided pleural effusion in the setting of acute anemia
#Acute on chronic HFpEF with paroxysmal A-fib and NICM
#Gastrointestinal hemorrhage, suspected to be a brisk upper GI bleed given recent melena
#Acute anemia
#Acute thrombocytopenia
#CKD (baseline creatinine 1.2�1.3)
#Valvular heart disease with mild moderate AI, mild TR and mild PI
#Suspected small PFO vs ASD via TTE from 05/07/2024
#AAA s/p EVAR
#Hx of EtOH use
Plan:
- Patient underwent thoracentesis today with 2 L removed from right hemithorax
- Follow-up pleural studies including cultures + cytopathology; cell counts are compatible with transudative effusion although total protein was not obtained
- Continue to monitor WBC and if he spikes a fevers then randall-Cx and consider starting broad-spectrum antibiotics
- Would diurese to keep net negative fluid balance as BP and sCr tolerate
- Cardiology consulted --> defer diuresis management to them, although I would favor raising his lasix even further to BID dosing +/- add aldactone considering his right sided pleural effusion continues to re-accumulate despite being on lasix 40mg
daily and he denies dietary indiscretion, although he does report drinking three to four 16 ounces of water per day, but watches his sodium intake
- Given his continued reports of dark stool, continue with serial H&H and transfuse to keep Hb >7 g/dL, and keep platelets >50k
- Large bore IV x 2
- Defer diet to gastroenterology
- Patient recently underwent endoscopy on 05/14/2024 during hospitalization (05/12 - 05/14/2024), with EGD showing normal esophagus, erythematous, granular and mild nodular and petechial mucosa in the antrum/prepyloric region of the stomach with
normally examined duodenum up to the second portion; he was advised to resume home Eliquis one day after his EGD
- Continue PPI 40mg IV BID
- Defer repeat endoscopy to GI
- Maintain SpO2 >90-94% with supplemental O2 as needed
- prn nebulized bronchodilators - not currently bronchospastic
- Incentive spirometer encouraged q1hr while awake
- Replete electrolytes with K>4, Mg>2
- Maintain euglycemia with goal BG >100 and <180
- DVT ppx: SCDs for now given continued melena
Dr. Jamison discussed the case with his daughter over the phone, Samina, and answered all of her questions.
Pulmonary service will continue to follow along.
Data:
CXR 05/19/2024: Moderate loculated right pleural effusion. Significantly increased in quantity.
Total time spent today was 57 minutes for this encounter. Time includes reviewing laboratory test/imaging results, reviewing pertinent medical records, obtaining and reviewing medical history, performing an appropriate exam, ordering medications,
tests and procedures. Time also includes documentation of this encounter, coordinating patient care and communicating with other healthcare professionals. Total time does not include separately billed tests performed on this date of service.
[2024-05-20] MEDS: LIPITOR 20 MG PO (09:21)
[2024-05-20] MEDS: LASIX 40 MG PO (09:21)
--- NOTE | 2024-05-20 09:57 | W.PN.HOSP.TC ---
Addendum entered and electronically signed by Timoteo Harris MD 05/20/24 16:11:
Seen and examined by me independently in collaboration with the medical technologist hematology.
Lab data and imaging data reviewed.
Addendum as below :
Patient with recurrent and rapid reaccumulation of right-sided pleural effusion. Requiring large-volume tap within a week. No empyema based on fluid analysis. Transudative. No prior cytology as requested. Recent culture data negative. Suspect
probably heart failure related but with such rapidity and large volume need to look else where. Consult cardiology. Will consider pulmonary input if recurrent again to eval for trapped lung which doesnt seem obvious on recent CT.
Ongoing recurrent GI bleed. No overt GI bleed. Hemodynamically stable. Await GI attending input.
Total time spent on today's encounter was 52 minutes which included time spent in counseling the patient/family regarding diagnosis and treatment plan as listed above, goals of care, and symptom management. Case was discussed with nursing staff,
specialists, and care coordinators/case management. All labs and imaging personally reviewed by me. Remainder the time spent in detailed review of previous records, lab data, imaging, and other medical provider documentation.
Original Note:
Today's Communication/Plan
-
C/w IV protonix BID, toprol for rate control, c/t hold Eliquis. Will consult Cardiology.
Assessment / Plan
Assessment / Plan
83 year old man
#Large Pleural Effusion
- recurrent L pleural effusion with almost 2L of clear yellow pleural fluid. Prior studies showing exudative fluid with bacterial cx NGx72 hours.
- repeat fluid sent for culture, gram stain, acid fast bacilli smear/cx, cytology, all pending.
- Concern for malignancy given size and speed of reaccumulation of fluid, however need fluid analysis to confirm. patient is an ex-smoker.
#Recurrent Melena
- S/p EGD from prior admission
- Resolution of black stools when off Eliquis, with return of black stools within 24 hours of resuming Eliquis prior to admission
- Will hold for now.
- Seen by GI, if bleeding persists, will consider another scope once stable post thoracentesis. For now recommending IV protonix BID
#Paroxysmal Afib w/ BIVICD (06/2023) and s/p ablation (01/2024)
- Holding Eliquis as above.
- C/w Toprol 25 qpm
- Will consult cardiology (Dr. Morales)
#HFpEF
- prior Echo 05/07 showing EF of 56%
- C/w lasix 40mg po qd.
#CKDIII
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 Will continue to monitor.
#Essential Hypertension - Previous CARMINE preventing ACEI/ARB/ARNI. C/w Metoprolol as above.
#Hyperlipidemia - c/w home Lipitor
#H/o AAA s/p EVAR
Discussed with Daughter Samina ([phone]), she is Nurse at [employer].
Diet: Cholesterol Lowering/<2g sodium
Code Status: Full Code
Anticipated Discharge: > 48 hours
Subjective/Interval History
-
Feeling well this morning after thoracentesis. He has no acute complaints at this time.
Objective Data
-
Labs:
Laboratory Results
05/20/24 05/20/24 05/20/24
05:55 14:00 22:00
WBC 8.9
Hgb 8.7 L D Pending Pending
Hct 27.3 L Pending Pending
Plt Count 134 D
Sodium 140
Potassium 3.4 L
Chloride 107
Carbon Dioxide 23
BUN 25 H
Creatinine 1.4 H
Glucose 98
Calcium 8.0 L
Vital Signs:
Vital Signs
Temp Pulse Resp BP Pulse Ox
97.8 F 68 13 131/56 97
05/20/24 09:33 05/20/24 09:33 05/20/24 09:33 05/20/24 09:33 05/20/24 09:33
I&O
05/19/24 05/20/24 05/21/24
06:59 06:59 06:59
Output Total 100 / 100
Balance -100 / -100
Review of Systems
-
History Source: Patient
Constitutional: Reports No Symptoms
EENT: Reports No Symptoms Reported
Respiratory: Reports No Symptoms
Cardiac: Reports No Symptoms
Abdomen/GI: Reports No Symptoms
Genitourinary: Reports No Symptoms
Musculoskeletal: Reports No Symptoms
Skin: Reports No Symptoms
Neuro: Reports No Symptoms
Physical Exam
-
General: Well Developed, Well Nourished and No Apparent Distress
HEENT: Normocephalic, Atraumatic, Moist Mucous Membranes, Anicteric, PERRLA, Nose Appears Normal and Ears Appear Normal
Respiratory: Crackles (RLL crackles); Negative Wheezes or Rhonchi
Cardiac: S1/S2, Irregular Rhythm and Murmur (systolic); Negative Tachycardic
Breast: N/A
GI: Soft, Nontender, Nondistended and Normal Bowel Sounds
Musculoskeletal: No Clubbing, No Cyanosis and No Edema
Skin: Warm, Dry and IV Access / Catheter Site
Neuro: AO x 3
Psych: Calm
[2024-05-20 10:59] LABS: Body Fluid pH 7.5
[2024-05-20 11:10] LABS: Body Fluid LDH < 90 U/L; Body Fluid Triglycerides 35 mg/dl
[2024-05-20 12:07] LABS: Body Fluid Mononuclear 92.6 %; Body Fluid Polymorphonuclear 7.4 %; Body Fluid WBC 229 /CUMM
[2024-05-20 12:08] LABS: Body Fluid Second Tech EM
[2024-05-20 13:48] LABS: Hematocrit 30.4 % (39.0-52.0); Hemoglobin 9.7 g/dL (13.0-18.0)
--- NOTE | 2024-05-20 15:01 | CON.CAR ---
Addendum entered and electronically signed by Bradley Mcdowell MD 05/20/24 16:08:
Patient seen and examined
Agree with VINCE Pfeiffer's note and assessment
Agree with VINCE Pfeiffer's plan
Reviewed the patient's complex arrhythmia history has been cared for by Dr. Verdin and Dr. Rajeev Rodarte. He has a complex ablation history including an ablation with a 28 mm cryoballoon and focal RF in 2022 for PVI and Micra reentrant left
atrial tachycardia. He was noted to have biatrial voltage abnormality and scar at baseline procedure. He then proceeded to [facility] with a 3830-lead in 2023 and a capping of his chronic RV paced sensed lead. He has an atrial lead, ICD lead,
3830-lead in the left bundle branch area, and a capped RV apical pace sense lead. He then proceeded to repeat ablation in January 2024 with PFA targeting the pulmonary veins and the left atrial tachycardia. Of note the posterior wall peers to be
left somewhat intact per the ablation notes. He is in sinus rhythm at presentation with appropriate atrial capture, atrial sensing, and left bundle branch area pacing with a QR in lead V1.
Reason for admission is recurrent GI bleeding and is currently off of oral anticoagulation. He also has repetitive thoracentesis for recurrent pleural effusion which is likely somewhat related to his congestive heart failure.
Examination:
Left sided deltopectoral groove device
Cor regular no murmur
Lungs diminished on the right side at the base
Abdomen soft nontender positive bowel sounds no extremity edema
Alert and x 3
Trace to 1+ extremity edema
Nonfocal neurologically
Remainder as per VINCE's note and assessment
Impression:
Presents 05/06/2024 with worsening shortness of breath, orthopnea/PND
Right pleural effusion s/p R thora for 1750cc 05/06/24, 1999cc 05/20/24
Recurrent dark stools
s/p EGD 05/14/24 without clear source of bleeding
History of recovered nonischemic cardiomyopathy, EF 30-35% April 2023, EF 56% 04/2024
Chronic HFrEF
Paroxysmal atrial fibrillation
Pulmonary vein isolation December 2022
repeat AFib/Atach ablation 01/15/24
OAC with eliquisMedtronic pacemaker 2013, upgraded to [facility] ICD 07/04/2023
CKD, stage 3b
Hypercholesterolemia
Hypertension
Abdominal aortic aneurysm repair 2016
ECHO 05/07/24: EF 56%, mildly enlarged RV size, pacer wire in RV, mild biatrial enlargement, MAC, trace MR, mild to moderate AR, mild TR, mild AL, dilated aortic root, color flow pattern suggestive of small PFO versus ASD
Echo 10/22/2023: EF 35%. Global hypokinesis with inferior akinesis. Mild concentric LVH. Mild to moderate AI.
Echo 04/17/2023: EF 25 to 30%, mild MR, mild AI, mild TR with PAP 32 mmHg
Echo 05/31/22: LVEF 45-50%, mild AI, PASP 35 assuming RA 3
Nuclear stress test 12/03/21: Normal perfusion, LVEF 25%, no SWMA, TID 0.93
Plan:
-This is Brandon's third admission in the last month. He underwent large volume right thoracentesis on 05/06, fluid was transudative. He then presented with dark stool and underwent endoscopy 05/14 without clear source of bleeding. He deferred on
colonoscopy and his Eliquis dose was reduced to 2.5 mg twice daily. He now presents back with both shortness of breath and recurrent dark stools. Underwent right thoracentesis today and fluid analysis pending.
-proBNP 1100. continue po lasix 40mg daily. replete K. Cr 1.4
-Eliquis on hold. GI following. continue PPI
-Hemoglobin 8.7 this morning, 9.7 this afternoon. Follow
-By EKG appears to be in underlying sinus rhythm with occasional pacing. Will interrogate device and will follow on telemetry while admitted
-would consider candidacy for watchman device as OP. would need either CTA chest or SHARA prior to implant. Given his elevated creatinine likely would be a prewatchman SHARA. 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
did have a preliminary talk in broad strokes regarding consideration of watchman as an alternative to oral anticoagulation given his recurrent GI bleeding. Of course some of this depends upon source of his bleeding.
-He has history of nonischemic cardiomyopathy with recovery in EF by most recent echo 05/07/2024. Continue GDMT with toprol. Previously hypotension and CARMINE prevented utilization of ELOISA/ARB/ARNI. He has repetitive pleural effusions and hopefully
with ongoing diuresis we can avoid repetitive thoracentesis
-Appreciate GI input and looks like they are planning workup this
Original Note:
Consultation
Consultation Request
Date/Time Consultation Performed: 05/20/24
Requesting Provider: Dr. Harris
Performing Provider: Krystin Pfeiffer PA-C for Dr. Mcdowell
Reason for Consultation: dark stools, SOB
Medical History
-
Chief Complaint: SOB, dark stools
History of Present Illness:
83-year-old man with PMH significant for nonischemic cardiomyopathy, heart failure with reduced ejection fraction, paroxysmal atrial fibrillation with prior PVI ablations maintained on amiodarone, [facility] ICD, CKD, hypertension, hypercholesterolemia,
AAA status post repair 2016 who presented to emergency department 05/06/2024 with progressively worsening shortness of breath. His outpatient dose of Lasix was uptitrated for several days without improvement of symptoms. He had mod R pleural
effusion and underwent R thoracentesis for 1750cc. Fluid was transudative. He was discharged 05/07. He then presented back to ER 05/12 with dark stools and EGD 05/14/24 was without clear etiology of bleed. He deferred colonoscopy and his eliquis dose
was decreased from 5mg BID to 2.5mg BID and he was discharged to home. He now presents back with SOB and recurrent dark stools. He states his daughter who is a nurse listened to his lungs and felt his R lung was filling back up with fluid. CXR today
showed mod R effusion and underwent thoracentesis for 2000cc 05/20/24. Hgb was 8.7 this morning. Cardiology consulted for evaluation.
PMH:
Nonischemic cardiomyopathy, EF 30-35% 04/2023
HFrEF
Paroxysmal atrial fibrillation
Pulmonary vein isolation 12/2022
repeat AFib/Atach ablation 01/15/24
Medtronic pacemaker 2013, upgraded to [facility] ICD 07/04/2023
CKD, stage 3b
Hypercholesterolemia
Hypertension
Abdominal aortic aneurysm repair 2016
Past Medical History
Past Medical History: Other (See HPI)
Past Surgical History: Cardiac (PVI ablation December 2022, repeat ablation January 2024, pacemaker 2013 which was upgraded to [facility] ICD June 2023) and Other (AAA repair 2016)
Social History
Tobacco: Former Smoker
Alcohol: Occasional
Drug: None
Personal:
Living: Alone
Employment: Retired
Family History
Family History: Reviewed & Not Pertinent
Allergies / Home Medications
Allergy/AdvReac Type Severity Reaction Status Date / Time
Penicillins Allergy over 40 Verified 05/19/24 16:46
years ago,
localized
arm skin
peeling
�Medication �Instructions �Recorded �Confirmed �Type
atorvastatin 20 mg tablet 20 mg PO DAILY High Cholesterol 04/03/23 05/20/24 History
docusate sodium 100 mg capsule 100 mg PO HS Constipation 07/12/23 05/20/24 History
(Stool Softener)
melatonin 10 mg tablet 10 mg PO HS Sleep 07/12/23 05/20/24 History
metoprolol succinate 25 mg 25 mg PO QPM Blood Pressure 05/06/24 05/20/24 History
tablet,extended release 24 hr
furosemide 40 mg tablet 40 mg PO DAILY Heart Failure 1 05/07/24 05/20/24 Rx
month #30 tabs
therapeutic multivitamin 1 tab PO DAILY 05/12/24 05/20/24 History
apixaban 2.5 mg tablet (Eliquis) 2.5 mg PO BID #0 tabs 05/14/24 05/20/24 Rx
pantoprazole 40 mg tablet,delayed 40 mg PO BID #60 tabs 05/14/24 05/20/24 Rx
release (Protonix)
Review of Systems
-
History Source: Patient
All other systems: Negative unless noted
Physical Exam
Vital Signs
Temp Pulse Resp BP Pulse Ox
97.2 F 87 16 124/57 98
05/20/24 14:29 05/20/24 14:29 05/20/24 14:29 05/20/24 14:29 05/20/24 14:29
Lab Results
05/20/24 05:55
Ttj-I-Ewmabgjbcrv Pept 1100 pg/ml 05/19/24 16:59
Physical Exam
General: No Apparent Distress and Comfortable
HEENT: Normocephalic, Anicteric and Moist Mucous Membranes
Respiratory: Crackles ( R lung base)
Cardiac: S1/S2 and Regular Rhythm
GI: Soft, Non Tender, Non Distended and Normal Bowel Sounds
Musculoskeletal: No Clubbing, No Cyanosis and No Edema
Skin: Warm and Dry
Neuro: AO x 3
Impression / Plan
-
Primary Care Provider: Dr Douglas Lopez
Primary contract recruiter: Dr Solitario Verdin
Impression:
Presents 05/06/2024 with worsening shortness of breath, orthopnea/PND
Right pleural effusion s/p R thora for 1750cc 05/06/24, 1999cc 05/20/24
Recurrent dark stools
s/p EGD 05/14/24 without clear source of bleeding
History of recovered nonischemic cardiomyopathy, EF 30-35% April 2023, EF 56% 04/2024
Chronic HFrEF
Paroxysmal atrial fibrillation
Pulmonary vein isolation December 2022
repeat AFib/Atach ablation 01/15/24
OAC with eliquis
Medtronic pacemaker 2013, upgraded to [facility] ICD 07/04/2023
CKD, stage 3b
Hypercholesterolemia
Hypertension
Abdominal aortic aneurysm repair 2016
ECHO 05/07/24: EF 56%, mildly enlarged RV size, pacer wire in RV, mild biatrial enlargement, MAC, trace MR, mild to moderate AR, mild TR, mild AL, dilated aortic root, color flow pattern suggestive of small PFO versus ASD
Echo 10/22/2023: EF 35%. Global hypokinesis with inferior akinesis. Mild concentric LVH. Mild to moderate AI.
Echo 04/17/2023: EF 25 to 30%, mild MR, mild AI, mild TR with PAP 32 mmHg
Echo 05/31/22: LVEF 45-50%, mild AI, PASP 35 assuming RA 3
Nuclear stress test 12/03/21: Normal perfusion, LVEF 25%, no SWMA, TID 0.93
Plan:
-This is Brandon's third admission in the last month. He underwent large volume right thoracentesis on 05/06, fluid was transudative. He then presented with dark stool and underwent endoscopy 05/14 without clear source of bleeding. He deferred on
colonoscopy and his Eliquis dose was reduced to 2.5 mg twice daily. He now presents back with both shortness of breath and recurrent dark stools. Underwent right thoracentesis today and fluid analysis pending.
-proBNP 1100. continue po lasix 40mg daily. replete K. Cr 1.4
-Eliquis on hold. GI following. continue PPI
-Hemoglobin 8.7 this morning, 9.7 this afternoon. Follow
-By EKG appears to be in underlying sinus rhythm with occasional pacing. Will interrogate device and will follow on telemetry while admitted
-would consider candidacy for watchman device as OP. would need either CTA chest or SHARA prior to implant.
-He has history of nonischemic cardiomyopathy with recovery in EF by most recent echo 05/07/2024. Continue GDMT with toprol. Previously hypotension and CARMINE prevented utilization of ELOISA/ARB/ARNI.
HPI 05/06/2024:
83-year-old man with PMH significant for nonischemic cardiomyopathy, heart failure with reduced ejection fraction, paroxysmal atrial fibrillation with prior PVI ablations maintained on amiodarone, [facility] ICD, CKD, hypertension, hypercholesterolemia,
AAA status postrepair 2016 who presents to emergency department 05/06/2024 with progressively worsening shortness of breath. His outpatient dose of Lasix was uptitrated for several days without improvement of symptoms. He is now having shortness of
breath with minimal activity as well as orthopnea/PND. Patient denies fevers, chills, rigors, cough, chest pain, palpitations, lower extremity edema or weight gain. Chest x-ray demonstrates moderate right pleural effusion. EKG shows AV paced
rhythm. Troponin negative. proBNP 709. Mildly elevated AST of 73 with normal ALT of 32. Patient was given a dose of Doxycycline and ceftriaxone in emergency department.
Data Reviewed
-
EKG: Tracing Personally Visualized and interpreted
Radiology: Report Reviewed by me
Medical Tests (Nuc Med, Echo etc): Report Reviewed by me
Labs: Labs Reviewed by me
Old Records: Reviewed
[2024-05-20] MEDS: TOPROL XL 25 MG PO (16:58)
[2024-05-20 21:35] LABS: Hematocrit 29.7 % (39.0-52.0); Hemoglobin 9.4 g/dL (13.0-18.0)
[2024-05-21] VITALS (9 sets, daily range): BP systolic 68–143; BP diastolic 47–77; PULSE 61–76; BMI 23.2
--- NOTE | 2024-05-21 06:33 | W.PN.GI.CBS2 ---
Today's Communication / Plan
-
Please see assessment and plan for details.
Assessment / Plan
-
1. GI bleed: In the setting of Eliquis, now off and hemoglobin has remained stable without signs of brisk active bleeding. Previous EGD essentially unremarkable. His breathing is feeling much better status post thoracentesis, will continue
diuresis per cardiology. Given that his breathing is improved and overall feeling better we will plan EGD/enteroscopy/colonoscopy tomorrow. Continue clear liquids today, prep tonight.
Subjective
Subjective
Date of Service: May 21, 2024
Patient feeling well, stools had 1 bowel movement yesterday that was lightening up. Breathing feels much better after thoracentesis. No, nausea or vomiting.
Objective
Data Reviewed
Laboratory Data:
Laboratory Results
Total Bilirubin 0.8 mg/dl (0.2-1.3) 05/19/24 16:59
AST 59 U/L (17-59) 05/19/24 16:59
ALT 28 U/L (0-50) 05/19/24 16:59
Alkaline Phosphatase 103 U/L (38-126) 05/19/24 16:59
Vital Signs and I&O:
Vital Signs
Temp Pulse Resp BP Pulse Ox
98.9 F 65 18 112/54 99
05/21/24 03:05 05/21/24 03:05 05/21/24 03:05 05/21/24 03:05 05/21/24 03:05
I&O
05/19/24 05/20/24 05/21/24
06:59 06:59 06:59
Intake Total 240 / 240
Output Total 400 / 400
Balance -160 / -160
Physical Exam
Physical Exam
General: NAD
Abdomen: normal bowel sounds, soft, no tenderness, no masses or bruits, no ascites
[2024-05-21 06:59] LABS: PT 15.5 Sec (11.4-14.6)
[2024-05-21 07:14] LABS: Hematocrit 27.9 % (39.0-52.0); Mean Corp Hgb Conc. 32.3 g/dL (33.0-37.0); Mean Corpuscular Hgb 29.5 pg (27.0-31.0); Mean Corpuscular Volume 91.5 fL (80.0-94.0); Mean Platelet Volume 11.7 fL (7.4-10.4); Platelet Count 133 10^3/uL (130-400); Red Blood Cell Count 3.05 10^6/uL (4.70-6.10); Red Cell Dist. Width 14.9 % (11.5-14.5)
[2024-05-21 07:18] LABS: Blood Urea Nitrogen 21 mg/dl (9-20); Calcium 7.9 mg/dl (8.4-10.2); Carbon Dioxide 27 mmol/L (22-30); Chloride 104 mmol/L (98-107); Estimated Creatinine Clearance 42 ml/min; Glucose 94 mg/dl (70-99); Potassium 3.7 mmol/L (3.5-5.1); Sodium 138 mmol/L (135-145); eGFR 46.48
[2024-05-21] MEDS: NSS (PRESERVATIVE FREE) 10 ML IV ×2 (08:50→20:09)
[2024-05-21] MEDS: LIPITOR 20 MG PO (08:50)
[2024-05-21] MEDS: PROTONIX IV 40 MG IV ×2 (08:50→20:09)
[2024-05-21] MEDS: LASIX 40 MG PO (08:50)
--- NOTE | 2024-05-21 09:28 | W.PN.PUL3 ---
Today's Communication / Plan
-
Given we are holding Eliquis, would repeat right thoracentesis (discussed with IR)
Await GI workup
Await pleural fluid cytology
Again discussed possible need for intermittent thoracentesis versus Pleurx catheter
Suspect trapped lung physiology
Assessment
-
Assessment: 83-year-old male former tobacco smoker with a past medical history of paroxysmal A-fib on Eliquis, AAA without rupture, chronic HFpEF/NICM, hypertension, hyperlipidemia, and CKD stage 3b who presents with worsening SOB for 3 days. Also
having continued dark stool and abdominal discomfort. He was recently hospitalized from 05/12 - 05/14/2024 for an acute GI bleed and underwent EGD on 05/14/2024 showing an erythematous, granular, mild nodular and petechial mucosa in the antrum and
prepyloric region of the stomach with otherwise normal stomach and normal examined duodenum up to the second portion. Hb on discharge was 9.6. Prior to that he was hospitalized from 05/06 - 05/07/2024, with a right-sided pleural effusion and he
underwent a thoracentesis on 05/06/2024 removing 1700 cc of clear transudative fluid, and cardiology raise his Lasix from 20 mg daily to 40 mg daily. Currently, in the ER he was afebrile to 97.8 �F, pulse rate 74, breathing at 18 breaths/minute, BP
105/55 and saturating 97% on room air. Labs showed Hb 11, WBC 11, potassium 3.3, creatinine 1.5, BUN 22, and proBNP 1100. CXR showed a moderate loculated right pleural effusion which was increased compared to prior CXR on 05/06/2024. He was
admitted to telemetry and on 06/10 he underwent a thoracentesis of the right side removing 2000 cc of transudative fluid. Pulmonary service now consulted for additional management/recommendations.
Chronic conditions [employer]: Chronic HFpEF/NICM, hypertension, AAA s/p EVAR, hyperlipidemia, paroxysmal A-fib on Eliquis, CKD stage 3b, history of alcohol use
Impression:
#SOB likely due to acute decompensated heart failure with right-sided pleural effusion in the setting of acute anemia
#Acute on chronic HFpEF with paroxysmal A-fib and NICM
#Gastrointestinal hemorrhage, suspected to be a brisk upper GI bleed given recent melena
#Acute anemia
#Acute thrombocytopenia
#CKD (baseline creatinine 1.2�1.3)
#Valvular heart disease with mild moderate AI, mild TR and mild PI
#Suspected small PFO vs ASD via TTE from 05/07/2024
#AAA s/p EVAR
#Hx of EtOH use
Plan/recommendations:
At this time, patient does feel improved after thoracentesis
There is still fluid present based on imaging
There is some mild pleural thickening and minimal focal calcifications
Chest x-ray from 2023 does not show any obvious right pleural parenchymal process
Suspect there may be a component of trapped lung physiology
Moving forward
Given transudative nature of pleural fluid, will continue to follow conservatively, and will need close follow-up as outpatient
Cytology pending from 05/20/2024
There does not appear to be any evidence of an infectious process
Eliquis remains on hold
May be worth pursuing repeat thoracentesis to optimize chances for auto pleurodesis
Discussed management with the patient and primary service
Continue with intermittent thoracentesis as needed
At some point, may need to consider Pleurx catheter
Cards following
Echocardiogram with mild RV dilation, reduced RV function
Diuresis per cardiology
Dark stool noted
Ongoing GI workup noted
Eliquis currently being held
Remains on PPI
DVT prophylaxis: Mechanical prophylaxis for now
Encouragingly, patient ambulating without difficulty
Pulmonary service will continue to follow along.
Data:
CXR 05/19/2024: Moderate loculated right pleural effusion. Significantly increased in quantity.
Total time spent today was 57 minutes for this encounter. Time includes reviewing laboratory test/imaging results, reviewing pertinent medical records, obtaining and reviewing medical history, performing an appropriate exam, ordering medications,
tests and procedures. Time also includes documentation of this encounter, coordinating patient care and communicating with other healthcare professionals. Total time does not include separately billed tests performed on this date of service.
Subjective Data
-
Date of Service:
Date of Service: May 21, 2024
Subjective:
Patient feels somewhat improved after thoracentesis. Denies pleurisy, nausea, significant cough, hemoptysis. Presently on room air. States he is ambulating without difficulty
Objective Data
Data Reviewed
Vital Signs / I&O / Oxygen:
Vital Signs
Temp Pulse Resp BP Pulse Ox
98.8 F 61 20 113/77 98
05/21/24 07:05 05/21/24 07:05 05/21/24 07:05 05/21/24 07:05 05/21/24 07:05
Intake and Output
05/20/24 05/21/24 05/22/24
06:59 06:59 06:59
Intake Total 720 / 720
Output Total 550 / 550 125 / 125
Balance 170 / 170 -125 / -125
SaO2 98
Physical Exam
General: Comfortable
HEENT: Normocephalic and Anicteric
Cardiovascular: S1-S2, Regular Rhythm, Murmur (n), Rub (n) and Peripheral Edema (tr)
Respiratory: Wheeze (n), Crackles (n), Rhonchi (n), Non-Labored Respirations and Other (Slight decreased right base)
GI: Soft, Non Distended and Non Tender
Neurology: Awake, Alert and No Motor Deficits
Skin: Good Color, Cyanosis (n), Jaundice (n) and Rash (n)
Labs/Micro/Reports
Lab Data
05/21/24 06:16
Laboratory Results
05/21/24
06:16
PT 15.5 H
INR 1.20
Microbiology
05/20/24 10:11 Pleural Fluid Body Fluid Culture - Preliminary
No Growth After 18-24 Hours
05/20/24 10:11 Pleural Fluid Gram Stain - Preliminary
--- NOTE | 2024-05-21 11:57 | W.PN.CARDCBS ---
Addendum entered and electronically signed by Kirby Rg MD 05/21/24 14:49:
I saw and examined the patient.
The Reshipping Clerk's note was reviewed and I agree with the note.
Comment:
GEN: No distress, awake, Ox3
HEENT: supple, anicteric, mmm
LUNGS: dec BS R base
CV: Reg, S1/S2, 04/21 syst LSB, no gallop
ABD: soft, BS+, NT/ND
EXT: No edema
NEURO: Gross non-focal
SKIN: No rash
Plan:
Plan is for EGD/colon in a.m. tomorrow. Hg stable at 10.3. Holding xarelto
Overall feeling better status post thoracentesis. Await fluid analysis.
Remains in sinus rhythm with recovered cardiomyopathy.
Continue Toprol 25 mg daily and Lasix 40 mg p.o. daily.
Continue atorvastatin
Original Note:
Today's Communication / Plan
-
eliquis on hold for EGD/colon in AM
await results of thora fluid analysis
Impression / Plan
-
Primary Care Provider: Dr Douglas Lopez
Primary labor relations supervisor: Dr Solitario Verdin
Impression:
Presents 05/06/2024 with worsening shortness of breath, orthopnea/PND
Right pleural effusion s/p R thora for 175cc 05/06/24, 1999cc 05/20/24
Recurrent dark stools
s/p EGD 05/14/24 without clear source of bleeding
History of recovered nonischemic cardiomyopathy, EF 30-35% April 2023, EF 56% 04/2024
Chronic HFrEF
Paroxysmal atrial fibrillation
Pulmonary vein isolation December 2022
repeat AFib/Atach ablation 01/15/24
OAC with eliquis
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
CKD, stage 3b
Hypercholesterolemia
Hypertension
Abdominal aortic aneurysm repair 2016
ECHO 05/07/24: EF 56%, mildly enlarged RV size, pacer wire in RV, mild biatrial enlargement, MAC, trace MR, mild to moderate AR, mild TR, mild CT, dilated aortic root, color flow pattern suggestive of small PFO versus ASD
Echo 10/22/2023: EF 35%. Global hypokinesis with inferior akinesis. Mild concentric LVH. Mild to moderate AI.
Echo 04/17/2023: EF 25 to 30%, mild MR, mild AI, mild TR with PAP 32 mmHg
Echo 05/31/22: LVEF 45-50%, mild AI, PASP 35 assuming RA 3
Nuclear stress test 12/03/21: Normal perfusion, LVEF 25%, no SWMA, TID 0.93
Plan:
-This is Brandon's third admission in the last month. He underwent large volume right thoracentesis on 05/06, fluid was transudative. He then presented with dark stool and underwent endoscopy 05/14 without clear source of bleeding. He deferred on
colonoscopy and his Eliquis dose was reduced to 2.5 mg twice daily. He presented back 05/19/24 with both shortness of breath and recurrent dark stools. Underwent right thoracentesis 05/20 and fluid analysis pending.
-proBNP 1100. continue po lasix 40mg daily. Cr stable at 1.5
-Eliquis on hold. Hemoglobin 9.0. GI following, plan for EGD/colon in AM
-appears mostly av paced with occasional ectopy/aberrancy. Will interrogate device and will follow on telemetry while admitted
-would consider candidacy for watchman device as OP. would likely need SHARA prior to implant due to chronic renal insufficiency.
-He has history of nonischemic cardiomyopathy with recovery in EF by most recent echo 05/07/2024. Continue GDMT with toprol. Previously hypotension and CARMINE prevented utilization of ELOISA/ARB/ARNI.
HPI 05/06/2024:
83-year-old man with PMH significant for nonischemic cardiomyopathy, heart failure with reduced ejection fraction, paroxysmal atrial fibrillation with prior PVI ablations maintained on amiodarone, MOLD MAINTENANCE TECHNICIAN ICD, CKD, hypertension, hypercholesterolemia,
AAA status postrepair 2017 who presents to emergency department 05/06/2024 with progressively worsening shortness of breath. His outpatient dose of Lasix was uptitrated for several days without improvement of symptoms. He is now having shortness of
breath with minimal activity as well as orthopnea/PND. Patient denies fevers, chills, rigors, cough, chest pain, palpitations, lower extremity edema or weight gain. Chest x-ray demonstrates moderate right pleural effusion. EKG shows AV paced
rhythm. Troponin negative. proBNP 709. Mildly elevated AST of 73 with normal ALT of 32. Patient was given a dose of Doxycycline and ceftriaxone in emergency department.
Progress Note - Desizing Machine Operator Head End
Subjective
Date of Service: May 21, 2024
no complaints overnight
Objective
Labs:
05/21/24 06:16
Labs
Hgb 9.0 g/dL (13.0-18.0) L 05/21/24 06:16
Hct 27.9 % (39.0-52.0) L 05/21/24 06:16
Plt Count 133 10^3/uL (130-400) 05/21/24 06:16
PT 15.5 Sec (11.4-14.6) H 05/21/24 06:16
INR 1.20 05/21/24 06:16
Sodium 138 mmol/L (135-145) 05/21/24 06:16
Potassium 3.7 mmol/L (3.5-5.1) 05/21/24 06:16
BUN 21 mg/dl (9-20) H 05/21/24 06:16
Creatinine 1.5 mg/dL (0.7-1.3) H 05/21/24 06:16
Glucose 94 mg/dl (70-99) 05/21/24 06:16
Vital Signs and I&O:
Vital Signs
Temp Pulse Resp BP Pulse Ox
97.7 F 65 16 143/68 98
05/21/24 11:34 05/21/24 11:34 05/21/24 11:34 05/21/24 11:34 05/21/24 11:34
Vital Signs
Temp Pulse Resp BP Pulse Ox
97.7 F 65 16 143/68 98
05/21/24 11:34 05/21/24 11:34 05/21/24 11:34 05/21/24 11:34 05/21/24 11:34
Intake & Output
05/19/24 05/20/24 05/21/24 05/22/24
07:59 07:59 07:59 07:59
Intake Total 720 / 720
Output Total 550 / 550 125 / 125
Balance 170 / 170 -125 / -125
Physical Exam
Physical Exam
General: No Apparent Distress and Comfortable
HEENT: Normocephalic, Anicteric and Moist Mucous Membranes
Respiratory: Crackles at RLB
Cardiac: S1/S2 and Regular Rhythm
GI: Soft, Non Tender, Non Distended and Normal Bowel Sounds
Musculoskeletal: No Clubbing, No Cyanosis and No Edema
Skin: Warm and Dry
Neuro: AO x 3
--- NOTE | 2024-05-21 13:40 | W.PN.HOSP.TC ---
Today's Communication/Plan
-
Repeat thoracentesis today. C/t hold Eliquis. Prep for EGD/Colonoscopy tomorrow. pending pleural fluid cultures.
Assessment / Plan
Assessment / Plan
83 year old man
#Large Pleural Effusion
- recurrent L pleural effusion with almost 2L of clear yellow pleural fluid. Prior studies showing exudative fluid with bacterial cx NGx72 hours.
- repeat fluid sent for culture, gram stain, acid fast bacilli smear/cx, cytology, all pending.
- Concern for malignancy given size and speed of reaccumulation of fluid, however need fluid analysis to confirm. patient is an ex-smoker.
- repeat thoracentesis today.
#Recurrent Melena
- S/p EGD from prior admission
- Resolution of black stools when off Eliquis, with return of black stools within 24 hours of resuming Eliquis prior to admission
- Continue holding Eliquis. IV Protonix BID
- Going for EGD/Colonoscopy tomorrow
#Paroxysmal Afib w/ BIVICD (06/2023) and s/p ablation (01/2024)
- Holding Eliquis as above.
- C/w Toprol 25 qpm
- Cardiology following
#HFpEF
- prior Echo 05/07 showing EF of 56%
- C/w lasix 40mg po qd
#CKDIII
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 Will continue to monitor.
#Essential Hypertension - Previous CARMINE preventing ACEI/ARB/ARNI. C/w Metoprolol as above.
#Hyperlipidemia - c/w home Lipitor
#H/o AAA s/p EVAR
Discussed with Daughter Samina ([phone]), she is Nurse at [facility] [employer] [employer].
Diet: Cholesterol Lowering/<2g sodium
Code Status: Full Code
Anticipated Discharge: > 48 hours
Subjective/Interval History
-
Feeling much better. No chest pain, no shortness of breath, no pain when taking deep breaths.
Objective Data
-
Labs:
Laboratory Results
05/21/24
06:16
WBC 8.0
Hgb 9.0 L
Hct 27.9 L
Plt Count 133
PT 15.5 H
INR 1.20
Sodium 138
Potassium 3.7
Chloride 104
Carbon Dioxide 27
BUN 21 H
Creatinine 1.5 H
Glucose 94
Calcium 7.9 L
Vital Signs:
Vital Signs
Temp Pulse Resp BP Pulse Ox
97.9 F 68 16 136/54 99
05/21/24 13:27 05/21/24 13:27 05/21/24 13:27 05/21/24 13:27 05/21/24 13:27
I&O
05/20/24 05/21/24 05/22/24
06:59 06:59 06:59
Intake Total 720 / 720
Output Total 550 / 550 125 / 125
Balance 170 / 170 -125 / -125
Review of Systems
-
History Source: Patient
Constitutional: Denies Fever or Chills
EENT: Reports No Symptoms Reported
Respiratory: Denies Cough, Hemoptysis, Trouble Breathing or Pleurisy
Cardiac: Denies Chest Pain, Palpitations or Syncope
Abdomen/GI: Denies Abdominal Pain, Nausea, Vomiting or Diarrhea
Musculoskeletal: Denies Joint Pain, Joint Swelling, Muscle Pain or Edema
Neuro: Denies Dizzy, Weakness or Lightheadedness
Hematologic / Lymphatic: Denies Bleeding or Bruising
Physical Exam
-
General: Well Developed, Well Nourished, No Apparent Distress, Comfortable and Conversant
HEENT: Normocephalic, Atraumatic, Moist Mucous Membranes, Anicteric, [place] Conjunctivae, PERRLA, Nose Appears Normal and Ears Appear Normal
Respiratory: Clear to Auscultation and Non Labored Respirations; Negative Wheezes, Rales or Rhonchi
Cardiac: S1/S2 and Irregular Rhythm; Negative Murmur or Rub
Breast: N/A
GI: Soft, Nontender, Nondistended and Normal Bowel Sounds
Musculoskeletal: No Clubbing, No Cyanosis and No Edema
Skin: Warm, Dry and IV Access / Catheter Site
Neuro: AO x 3
[2024-05-21 14:40] LABS: Hemoglobin 10.3 g/dL (13.0-18.0)
--- NOTE | 2024-05-21 14:40 | PTCARENOTE ---
Received pt from IR after thorocentesis. Ambulated to bed with minimal assist. RT middle back band aid intact. Will continue to monitor.
--- NOTE | 2024-05-21 14:51 | CM ---
CM met with Brandon to complete IA. He was recently hospitalized at for pleural effusion; readmitted for GIB and now readmitted with GI Bleed.
Brandon lives alone in an apartment. He is fully independent at baseline, owns a RW and SPC, but not currently using AD.
Patient drives, is independent with all IADLs.
Plan: CM to follow for all discharge planning needs
PCP: Dr. Lopez
Pharm: [facility] in [place]
--- NOTE | 2024-05-21 16:12 | W.PN.UPDATE ---
Update Note
Progress Note Update
Seen and examined by me independently in collaboration with the medical assembler.
Lab data and imaging data reviewed.
Addendum as below :
Patient had another thoracentesis today as post thoracentesis chest x-ray yesterday raise the concern for residual pleural fluid. Follow chest x-ray to make sure there is no persistent right lung opacity which would rasise concerns for trapped lung
physiology. Continue with diuresis. Pulm/Cards following.
For GI endoscopic eval in am.
[2024-05-21] MEDS: TOPROL XL 25 MG PO (17:24)
[2024-05-21] MEDS: NULYTELY SOLUTION 4 LITERS PO (17:24)
--- NOTE | 2024-05-21 18:13 | PTCARENOTE ---
Golyte prep started at 1725 today. Pt tolerating thus far.
[2024-05-21 22:30] LABS: Hematocrit 32.7 % (39.0-52.0); Hemoglobin 10.8 g/dL (13.0-18.0)
[2024-05-22] VITALS (9 sets, daily range): BP systolic 14–136; BP diastolic 47–79; PULSE 63–74; BMI 23.1
--- NOTE | 2024-05-22 05:35 | PTCARENOTE ---
Pt tolerated bowel prep overnight. Pt stated stool is clear liquid, this RN was unable to assess, as pt kept ambulating to bathroom and flushing without witness. No signs of bleeding overnight. Vital signs stable. Will monitor.
[2024-05-22 06:48] LABS: Hematocrit 28.6 % (39.0-52.0); Hemoglobin 9.1 g/dL (13.0-18.0); Mean Corp Hgb Conc. 31.8 g/dL (33.0-37.0); Mean Corpuscular Volume 91.1 fL (80.0-94.0); Mean Platelet Volume 11.4 fL (7.4-10.4); Platelet Count 135 10^3/uL (130-400); Red Blood Cell Count 3.14 10^6/uL (4.70-6.10); Red Cell Dist. Width 14.9 % (11.5-14.5); White Blood Cell Count 7.7 10^3/uL (4.8-10.8)
[2024-05-22 07:08] LABS: Blood Urea Nitrogen 16 mg/dl (9-20); Calcium 8.2 mg/dl (8.4-10.2); Carbon Dioxide 26 mmol/L (22-30); Chloride 102 mmol/L (98-107); Estimated Creatinine Clearance 42 ml/min; Glucose 94 mg/dl (70-99); Potassium 4.3 mmol/L (3.5-5.1); Sodium 136 mmol/L (135-145); eGFR 46.48
--- NOTE | 2024-05-22 08:11 | W.PN.HOSP.TC ---
Addendum entered and electronically signed by Santino Jesus MD, Resident 05/23/24 15:25:
Patient's recurrent pleural effusion was likely a result of an acute worsening of his chronic heart failure with preserved ejection fraction.
Addendum entered and electronically signed by Timoteo Harris MD 05/22/24 14:23:
Seen and examined by me independently in collaboration with the medical superintendent.
Lab data and imaging data reviewed.
Addendum as below :
Back from colonoscopy and EGD. 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 H&H stable. Hemodynamically stable. Oxygenating well on room air. Denies shortness of breath. Post pleural tap is right-sided chest x-ray is clear.
Recommended to hold Eliquis for 1 week and restart. Follow-up with GI as an outpatient in a month.
Medically stable for discharge home today. Cardiology is well cleared for discharge.
Total time of discharge 32 minutes
Original Note:
Today's Communication/Plan
-
Pending pleural fluid analysis, going for EGD/Colonoscopy today. Continue holding Eliquis for today.
Assessment / Plan
Assessment / Plan
83 year old man
#Large Pleural Effusion
- recurrent L pleural effusion with almost 2L of clear yellow pleural fluid. Prior studies showing exudative fluid with bacterial cx NGx72 hours.
- repeat fluid sent for culture, gram stain, acid fast bacilli smear/cx, cytology, all pending.
- Concern for malignancy given size and speed of reaccumulation of fluid, however need fluid analysis to confirm. patient is an ex-smoker.
- repeat thoracentesis yielding another 1000ccs of fluid
- Waiting for fluid results
#Recurrent Melena
- S/p EGD from prior admission
- Resolution of black stools when off Eliquis, with return of black stools within 24 hours of resuming Eliquis prior to admission
- Continue holding Eliquis. IV Protonix BID
- Going for EGD/Colonoscopy today
#Paroxysmal Afib w/ BIVICD (06/2023) and s/p ablation (01/2024)
- Holding Eliquis as above.
- C/w Toprol 25 qpm
- Cardiology following
#HFpEF
- prior Echo 05/07 showing EF of 56%
- C/w lasix 40mg po qd
#CKDIII
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 Will continue to monitor.
#Essential Hypertension - Previous CARMINE preventing ACEI/ARB/ARNI. C/w Metoprolol as above.
#Hyperlipidemia - c/w home Lipitor
#H/o AAA s/p EVAR
Discussed with Daughter Samina ([phone]), she is Nurse at [employer].
Diet: Cholesterol Lowering/<2g sodium
Code Status: Full Code
Anticipated Discharge: 24 - 48 hours
Subjective/Interval History
-
Feeling good, no issues with breathing. No new fevers or chills. No pain on deep breaths.
Objective Data
-
Labs:
Laboratory Results
05/21/24 05/22/24
22:08 06:16
WBC 7.7
Hgb 10.8 L 9.1 L
Hct 32.7 L 28.6 L
Plt Count 135
Sodium 136
Potassium 4.3
Chloride 102
Carbon Dioxide 26
BUN 16
Creatinine 1.5 H
Glucose 94
Calcium 8.2 L
Vital Signs:
Vital Signs
Temp Pulse Resp BP Pulse Ox
98.3 F 65 16 113/48 100
05/22/24 03:50 05/22/24 03:50 05/22/24 03:50 05/22/24 03:50 05/22/24 03:50
I&O
05/21/24 05/22/24 05/23/24
06:59 06:59 06:59
Intake Total 720 / 720 960 / 960
Output Total 550 / 550 325 / 325
Balance 170 / 170 635 / 635
Review of Systems
-
History Source: Patient
Constitutional: Denies Fever or Chills
Respiratory: Denies Cough, Hemoptysis, Trouble Breathing or Wheezing
Cardiac: Denies Chest Pain, Palpitations or Syncope
Abdomen/GI: Denies Abdominal Pain, Nausea, Vomiting, Diarrhea or Bloody Stools
Genitourinary: Denies Dysuria or Frequency
Musculoskeletal: Denies Joint Pain, Joint Swelling or Muscle Pain
Skin: Denies Itching or Rash
Neuro: Denies Dizzy or Headache
Physical Exam
-
General: Well Developed, Well Nourished, No Apparent Distress and Comfortable
HEENT: Normocephalic, Atraumatic, Moist Mucous Membranes, Anicteric, [place] Conjunctivae, PERRLA, Nose Appears Normal and Ears Appear Normal
Respiratory: Clear to Auscultation; Negative Wheezes, Rales or Rhonchi
Cardiac: S1/S2 and Irregular Rhythm; Negative Murmur, Rub or Tachycardic
Breast: N/A
GI: Soft, Nontender, Nondistended and Normal Bowel Sounds
Musculoskeletal: No Clubbing, No Cyanosis and No Edema
Skin: Warm, Dry and IV Access / Catheter Site
Neuro: AO x 3
Psych: Calm
[2024-05-22] MEDS: LASIX 40 MG PO (08:35)
[2024-05-22] MEDS: PROTONIX IV 40 MG IV (08:35)
[2024-05-22] MEDS: LIPITOR 20 MG PO (08:35)
[2024-05-22] MEDS: NSS (PRESERVATIVE FREE) 10 ML IV (08:36)
[2024-05-22] MEDS: FLUSH (NSS) 1 FLUSH IV (08:36)
--- NOTE | 2024-05-22 11:46 | W.PN.CARDCBS ---
Today's Communication / Plan
-
Stable cardiology status for GI procedure without further testing
Await GI clearance to restart Eliquis
Impression / Plan
-
Primary Care Provider: Dr Douglas Lopez
Primary guide rail cleaner: Dr Solitario Verdin
Impression:
Presents 05/06/2024 with worsening shortness of breath, orthopnea/PND
Right pleural effusion s/p R thora for 1750cc 05/06/24, 1999cc 05/20/24
Recurrent dark stools
s/p EGD 05/14/24 without clear source of bleeding
History of recovered nonischemic cardiomyopathy, EF 30-35% April 2023, EF 56% 04/2024
Chronic HFrEF
Paroxysmal atrial fibrillation
Pulmonary vein isolation December 2022
repeat AFib/Atach ablation 01/15/24
OAC with eliquis
Medtronic pacemaker 2013, upgraded to PRINCIPAL SOFTWARE ARCHITECT ICD 07/04/2023
CKD, stage 3b
Hypercholesterolemia
Hypertension
Abdominal aortic aneurysm repair 2016
ECHO 05/07/24: EF 56%, mildly enlarged RV size, pacer wire in RV, mild biatrial enlargement, MAC, trace MR, mild to moderate AR, mild TR, mild ID, dilated aortic root, color flow pattern suggestive of small PFO versus ASD
Echo 10/22/2023: EF 35%. Global hypokinesis with inferior akinesis. Mild concentric LVH. Mild to moderate AI.
Echo 04/17/2023: EF 25 to 30%, mild MR, mild AI, mild TR with PAP 32 mmHg
Echo 05/31/22: LVEF 45-50%, mild AI, PASP 35 assuming RA 3
Nuclear stress test 12/03/21: Normal perfusion, LVEF 25%, no SWMA, TID 0.93
Plan:
Eliquis on hold pending GI workup with EGD�colonoscopy to be done on 05/22/2024
Await GI clearance to restart Eliquis
would consider candidacy for watchman device as OP. would likely need SHARA prior to implant due to chronic renal insufficiency.
He has history of nonischemic cardiomyopathy with recovery in EF by echo 05/07/2024. Continue GDMT with toprol. Previously hypotension and CARMINE prevented utilization of ELOISA/ARB/ARNI.
PREADMIT DATA
This is Brandon's third admission in the last month. He underwent large volume right thoracentesis on 05/06, fluid was transudative. He then presented with dark stool and underwent endoscopy 05/14 without clear source of bleeding. He deferred on
colonoscopy and his Eliquis dose was reduced to 2.5 mg twice daily. He presented back 05/19/24 with both shortness of breath and recurrent dark stools. Underwent right thoracentesis 05/20 and fluid analysis pending.
HPI 05/06/2024:
83-year-old man with PMH significant for nonischemic cardiomyopathy, heart failure with reduced ejection fraction, paroxysmal atrial fibrillation with prior PVI ablations maintained on amiodarone, PRINCIPAL SOFTWARE ARCHITECT ICD, CKD, hypertension, hypercholesterolemia,
AAA status postrepair 2016 who presents to emergency department 05/06/2024 with progressively worsening shortness of breath. His outpatient dose of Lasix was uptitrated for several days without improvement of symptoms. He is now having shortness of
breath with minimal activity as well as orthopnea/PND. Patient denies fevers, chills, rigors, cough, chest pain, palpitations, lower extremity edema or weight gain. Chest x-ray demonstrates moderate right pleural effusion. EKG shows AV paced
rhythm. Troponin negative. proBNP 709. Mildly elevated AST of 73 with normal ALT of 32. Patient was given a dose of Doxycycline and ceftriaxone in emergency department.
Progress Note - Meat And Poultry Inspector
Subjective
Date of Service: May 22, 2024
No complaints
Objective
Labs:
05/22/24 06:16
05/22/24 06:16
Labs
Hgb 9.1 g/dL (13.0-18.0) L 05/22/24 06:16
Hct 28.6 % (39.0-52.0) L 05/22/24 06:16
Plt Count 135 10^3/uL (130-400) 05/22/24 06:16
PT 15.5 Sec (11.4-14.6) H 05/21/24 06:16
INR 1.20 05/21/24 06:16
Sodium 136 mmol/L (135-145) 05/22/24 06:16
Potassium 4.3 mmol/L (3.5-5.1) 05/22/24 06:16
BUN 16 mg/dl (9-20) 05/22/24 06:16
Creatinine 1.5 mg/dL (0.7-1.3) H 05/22/24 06:16
Glucose 94 mg/dl (70-99) 05/22/24 06:16
Vital Signs and I&O:
Vital Signs
Temp Pulse Resp BP Pulse Ox
97.6 F 65 16 125/57 100
05/22/24 07:10 05/22/24 08:35 05/22/24 07:10 05/22/24 08:35 05/22/24 08:31
Vital Signs
Temp Pulse Resp BP Pulse Ox
97.6 F 65 16 125/57 100
05/22/24 07:10 05/22/24 08:35 05/22/24 07:10 05/22/24 08:35 05/22/24 08:31
Intake & Output
05/20/24 05/21/24 05/22/24 05/23/24
06:59 06:59 06:59 06:59
Intake Total 720 / 720 960 / 960
Output Total 550 / 550 325 / 325
Balance 170 / 170 635 / 635
Physical Exam
Physical Exam
General: Well developed, well nourished in NAD.
Neck: Supple, no JVD, HJR, carotids +2 B/L, no bruits bilaterally.
Heart: Non displaced PMI, RRR, no murmurs, No S3, S4, no rubs.
Lungs: Clear to auscultation bilaterally, no wheeze, rhonchi, rubs bilaterally,
normal expiratory phase.
Extremities: No clubbing, cyanosis or edema bilaterally.
Neuro: Grossly nonfocal, awake, alert and oriented x3.
--- NOTE | 2024-05-22 12:41 | PTCARENOTE ---
Received pt from PACU s/p EGD/colonscopy; on stretcher, accompanied by volunteer. Pt AAO x3 STEPHENS well, able to transfer ot bed with minimal assistance, no c/o weakness/dizziness. VSS. Telemetry:AV paced rhythm. On room air-pulse ox 94%, no SOB.
Abd large, soft, BS (+); to start regular diet. Pt DTV post-procedure; urinal at bedside. Resting comfortably at present. Will continue to monitor.
--- NOTE | 2024-05-22 14:09 | W.PN.PUL3 ---
Today's Communication / Plan
-
Await cytology
Chest x-ray much improved
At some point, may need to consider scheduled thoracentesis versus Pleurx
This can be decided as an outpatient
Disposition efforts
Assessment
-
Assessment: 83-year-old male former tobacco smoker with a past medical history of paroxysmal A-fib on Eliquis, AAA without rupture, chronic HFpEF/NICM, hypertension, hyperlipidemia, and CKD stage 3b who presents with worsening SOB for 3 days. Also
having continued dark stool and abdominal discomfort. He was recently hospitalized from 05/12 - 05/14/2024 for an acute GI bleed and underwent EGD on 05/14/2024 showing an erythematous, granular, mild nodular and petechial mucosa in the antrum and
prepyloric region of the stomach with otherwise normal stomach and normal examined duodenum up to the second portion. Hb on discharge was 9.6. Prior to that he was hospitalized from 05/06 - 05/07/2024, with a right-sided pleural effusion and he
underwent a thoracentesis on 05/06/2024 removing 1700 cc of clear transudative fluid, and cardiology raise his Lasix from 20 mg daily to 40 mg daily. Currently, in the ER he was afebrile to 97.8 �F, pulse rate 74, breathing at 18 breaths/minute, BP
105/55 and saturating 97% on room air. Labs showed Hb 11, WBC 11, potassium 3.3, creatinine 1.5, BUN 22, and proBNP 1100. CXR showed a moderate loculated right pleural effusion which was increased compared to prior CXR on 05/06/2024. He was
admitted to telemetry and on 06/10 he underwent a thoracentesis of the right side removing 2000 cc of transudative fluid. Pulmonary service now consulted for additional management/recommendations.
Chronic conditions [employer]: Chronic HFpEF/NICM, hypertension, AAA s/p EVAR, hyperlipidemia, paroxysmal A-fib on Eliquis, CKD stage 3b, history of alcohol use
Impression:
#SOB likely due to acute decompensated heart failure with right-sided pleural effusion in the setting of acute anemia
#Acute on chronic HFpEF with paroxysmal A-fib and NICM
#Gastrointestinal hemorrhage, suspected to be a brisk upper GI bleed given recent melena
#Acute anemia
#Acute thrombocytopenia
#CKD (baseline creatinine 1.2�1.3)
#Valvular heart disease with mild moderate AI, mild TR and mild PI
#Suspected small PFO vs ASD via TTE from 05/07/2024
#AAA s/p EVAR
#Hx of EtOH use
Plan/recommendations:
At this time, patient does feel improved after thoracentesis x 2
-1 L, -2 L cytology negative (mononuclear predominant), second set pending
Transudate
There is some mild pleural thickening and minimal focal calcifications
Chest x-ray from 2023 does not show any obvious right pleural parenchymal process
Suspect there may be a component of trapped lung physiology
Moving forward
Given transudative nature of pleural fluid, will continue to follow conservatively, and will need close follow-up as outpatient
Cytology negative from 05/20, pending from 05/21
There does not appear to be any evidence of an infectious process
Eliquis remains on hold
May be worth pursuing repeat thoracentesis to optimize chances for auto pleurodesis
Discussed management with the patient and primary service
Continue with intermittent thoracentesis as needed
At some point, may need to consider Pleurx catheter
Cards following
Echocardiogram with mild RV dilation, reduced RV function
Diuresis per cardiology
Dark stool noted
Ongoing GI workup noted
Eliquis currently being held
Remains on PPI
DVT prophylaxis: Mechanical prophylaxis for now
Encouragingly, patient ambulating without difficulty
Pulmonary service will continue to follow along.
Data:
CXR 05/19/2024: Moderate loculated right pleural effusion. Significantly increased in quantity.
Total time spent today was 57 minutes for this encounter. Time includes reviewing laboratory test/imaging results, reviewing pertinent medical records, obtaining and reviewing medical history, performing an appropriate exam, ordering medications,
tests and procedures. Time also includes documentation of this encounter, coordinating patient care and communicating with other healthcare professionals. Total time does not include separately billed tests performed on this date of service.
Subjective Data
-
Date of Service:
Date of Service: May 22, 2024
Subjective:
Patient feels much improved. Status post right thoracentesis yesterday. Chest x-ray with significant improvement, chest exam improved
Objective Data
Data Reviewed
Vital Signs / I&O / Oxygen:
Vital Signs
Temp Pulse Resp BP Pulse Ox
97.7 F 62 12 136/61 99
05/22/24 13:14 05/22/24 13:14 05/22/24 13:14 05/22/24 13:14 05/22/24 13:14
Intake and Output
05/21/24 05/22/24 05/23/24
06:59 06:59 06:59
Intake Total 720 / 720 960 / 960
Output Total 550 / 550 325 / 325
Balance 170 / 170 635 / 635
SaO2 99
Physical Exam
General: Comfortable
HEENT: Normocephalic and Anicteric
Cardiovascular: S1-S2, Regular Rhythm, Murmur (n), Rub (n) and Peripheral Edema (tr)
Respiratory: Wheeze (n), Crackles (n), Rhonchi (n) and Non-Labored Respirations
GI: Soft, Non Distended and Non Tender
Neurology: Awake, Alert and No Motor Deficits
Skin: Good Color, Cyanosis (n), Jaundice (n) and Rash (n)
Labs/Micro/Reports
Lab Data
05/22/24 06:16
05/22/24 06:16
Microbiology
05/20/24 10:11 Pleural Fluid Body Fluid Culture - Preliminary
No Growth After 48 Hours
05/20/24 10:11 Pleural Fluid Gram Stain - Preliminary
--- NOTE | 2024-05-22 14:55 | CM ---
Addendum entered by Claire Kaur 05/22/24 15:26:
IMM provided and signed by Brandon. Copy left at bedside. Original placed in chart.
Original Note:
CM following for discharge planning. No needs identified.
Plan: Discharge to home with no needs.
--- NOTE | 2024-05-22 16:24 | PTCARENOTE ---
Pt resting comfortably, no c/o. VSS. Awaiting transport to home.
--- NOTE | 2024-05-22 17:05 | W.DCSUMMARY ---
Discharge Summary
Discharge Data
Date of Admission: 05/20/24
Date of Discharge: 05/22/24
Total time spent discharging patient (in min): >30m
-
Pending Results: Yes
Additional Pending Results:
Pleural Fluid Cytology
Pleural Fluid Acid Fast bacilli Smear/Culture
Pleural Fluid Culture/Gram Stain (final report)
Hospital Course
Discharging Physician : Dr. Santino Jesus, Dr. Timoteo Harris
Disposition : Home
Primary care physician : Santino Lopez
Principal Discharge diagnosis : Chronic GI bleed, Recurrent Right pleural effusion, CHF
Chronic Discharge diagnosis : Paroxysmal Afib, CKD Stage III, Essential Hypertension, Hyperlipidemia, AAA s/p EVAR
Hospital Course :
Brandon Fatima is an 83 year old man who presented to the [facility] for recurring shortness of breath. Of note, he had been discharged on 05/07/2024 following a thoracentesis for R sided pleural effusion and again on 05/14/2024 following an acute GI bleed
where an EGD was gone. He was found to have another R sided pleural effusion which was drained and sent for fluid analysis. He reported a recent return of black tarry stools since restarting his Eliquis from the prior admission and so his Eliquis
was held once again. For his GI bleeding, he was given IV Protonix and his Eliquis was held. He was prepped and scheduled for an EGD/Colonoscopy. EGD demonstrated mild gastric antral vascular ectasia with bleeding, for which argon plasma was used
for hemostasis. The patient received two thoracenteses, for 2L and 1L of fluid respectively, which were sent for analysis. Pulmonology was consulted, trapped lung physiology was suspected, but the patient was ultimately deemed stable for outpatient
follow up for possible therapeutic taps vs. Pleurx catheter placement. Cardiology followed the patient during his admission. It was felt that the recurrent right sided pleural effusions were a likely consequence of heart failure. He was kept off his
Eliquis and discharged with follow up appointments scheduled with GI, Pulmonology, and Cardiology.
Important imaging findings :
CR Chest - 2 Views:
Moderate loculated right pleural effusion. Significantly increased in quantity.
CR Chest Single View:
There is no pneumothorax
There is moderate pulmonary edema with moderate right pleural effusion and underlying atelectasis
CT Chest W/o Iv Contrast:
Moderate right pleural effusion, minimally improved in comparison to recent prior CT. Please note, right thoracentesis was obtained on preceding day May 20, 2024.
No findings to suggest left pleural effusion.
Decreased bilateral lower lobe opacification at least in part suggesting resolving pneumonia.
CR Chest Single View:
No pneumothorax following right thoracentesis. Improved right pleural effusion.
Procedure findings :
Colonoscopy:
The perianal and digital rectal examinations were normal.
Multiple small-mouthed diverticula were found in the sigmoid colon and descending colon.
Internal hemorrhoids were found during retroflexion. The hemorrhoids were small.
The exam was otherwise without abnormality.
Upper GI endoscopy:
The examined esophagus was normal.
Mild gastric antral vascular ectasia with bleeding was present in the gastric antrum. Coagulation for hemostasis using argon plasma was successful.
Estimated blood loss was minimal.
The examined duodenum was normal.
The examined jejunum was normal.
Ultrasound-guided thoracentesis, Right:
Successful ultrasound-guided thoracentesis, yielding 2000 cc of clear yellow pleural fluid.
Ultrasound-guided thoracentesis, Right.
Successful ultrasound-guided thoracentesis, yielding 1000 cc of clear yellow pleural fluid.
Discharge Plan
-
Patient Disposition: Home (Routine Discharge)
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
Diet: 2 Gram Sodium
Activity: As tolerated
Driving Restrictions: As prior to admission
Bathing Restrictions: None
Specialty Instructions: Weigh Daily- Call MD for wt gain/loss 3 lbs overnight/5 lbs in 1 week
Referrals:
John Salgado MD [Active] -
(2 weeks with CXR
Can see any [employer] or Naomi)
Donte Verdin MD [Active] - in one to two weeks
Robert Elias DO [Active] - 06/24/24 10:00 am
Santino Lopez MD [Family Provider] - in less than 1 week
Prescriptions:
New
ferrous sulfate 325 mg (65 mg iron) tablet
325 mg PO DAILY Qty: 30 0RF
Continued
atorvastatin 20 mg Tablet
20 mg PO DAILY
docusate sodium [Stool Softener] 100 mg Capsule
100 mg PO HS
melatonin 10 mg Tablet
10 mg PO HS
metoprolol succinate 25 mg tablet extended release 24 hr
25 mg PO QPM
furosemide 40 mg Tablet
40 mg PO DAILY 30 Days Qty: 30 0RF
therapeutic multivitamin Tablet
1 tab PO DAILY
pantoprazole [Protonix] 40 mg tablet,delayed release (DR/EC)
40 mg PO BID
Held
Eliquis 2.5 mg Tablet
2.5 mg PO BID Qty: 0 0RF
Hold Instructions: Resume on 05/29/24.
Rx Instructions:
Start 05/15/2024
Discharge Orders:
Discharge Patient (As Directed); Ordered 05/22/24
Ordered By: Timoteo Harris
Discharge Date and Time
Print Language: TURKISH
[2024-05-22] MEDS: TOPROL XL PO (17:35)
--- NOTE | 2024-05-23 15:08 | PN.CDI ---
CDI
- -
CDI:
Physician Documentation Request
Admit Date: 05/20/24 04:29
Dear Doctor Ann Marie/ Dr. Harris,
Please review the following and provide your response in the progress notes.
Clinical Indicators:
Pt admitted with large pleural effusion and HFpEF.
05/20 Pulmonary: ' SOB likely due to acute decompensated heart failure with right-sided pleural effusion in the setting of acute anemia
...Acute on chronic HFpEF with paroxysmal A-fib and NICM'
05/22 Discharge Summary: ' ...It was felt that the recurrent right sided pleural effusions were a likely consequence of heart failure.'
Clarify which of the following accurately represents the acuity of the HFpEF. Possible options might include:
Acute
Acute on Chronic
Other
Use of terms such as suspected, likely, concern for, or probable (associated with a specific diagnosis that is being evaluated, monitored, or treated as if it exists) are acceptable and can be coded in the inpatient setting, when documented at the
time of discharge.
Thank you,
Joan Vlaverde RN, BSN
CDI Specialist
[place] [employer]
Please use your independent medical judgment in providing your response.
== END 2024-05-22 18:14 | disposition home or self-care (01) | DRG 377 ==
LOC: 4 EAST ACU 04:29
PROVIDERS: Internal Medicine Gastroenterology; Nurse Practitioner Adult Health; Nurse Practitioner Family; Physician Assistant; Radiology Vascular & Interventional Radiology; ADMITTING PHYSICIAN Internal Medicine; ATTENDING PHYSICIAN Internal Medicine; EMERGENCY PHYSICIAN Emergency Medicine; FAMILY PHYSICIAN Family Medicine; OTHER PHYSICIAN Internal Medicine; OTHER PHYSICIAN Internal Medicine Cardiovascular Disease; OTHER PHYSICIAN Internal Medicine Critical Care Medicine
PROC: 0W993ZZ Drainage of Right Pleural Cavity, Percutaneous Approach (ICD-10-PCS; 2024-05-20)
PROC: 0DJD8ZZ Inspection of Lower Intestinal Tract, Via Natural or Artificial Opening Endoscopic (ICD-10-PCS; 2024-05-22)
PROC: 0W3P8ZZ Control Bleeding in Gastrointestinal Tract, Via Natural or Artificial Opening Endoscopic (ICD-10-PCS; 2024-05-22)
DX: K31.811 Angiodysplasia of stomach and duodenum with bleeding (principal); I50.33 Acute on chronic diastolic (congestive) heart failure; I13.0 Hypertensive heart and chronic kidney disease with heart failure and stage 1 through stage 4 chronic kidney disease, or unspecified chronic kidney disease; D62 Acute posthemorrhagic anemia; J91.8 Pleural effusion in other conditions classified elsewhere; D68.32 Hemorrhagic disorder due to extrinsic circulating anticoagulants; I42.8 Other cardiomyopathies; I48.0 Paroxysmal atrial fibrillation; N18.32 Chronic kidney disease, stage 3b; T45.515A Adverse effect of anticoagulants, initial encounter; D69.6 Thrombocytopenia, unspecified; K57.30 Diverticulosis of large intestine without perforation or abscess without bleeding; K64.8 Other hemorrhoids; E78.00 Pure hypercholesterolemia, unspecified; Z79.01 Long term (current) use of anticoagulants; Z95.810 Presence of automatic (implantable) cardiac defibrillator; Z88.0 Allergy status to penicillin; Z87.891 Personal history of nicotine dependence; Z86.79 Personal history of other diseases of the circulatory system; Z82.49 Family history of ischemic heart disease and other diseases of the circulatory system; Z79.899 Other long term (current) drug therapy
CPT/HCPCS: 88305; 32555; 71045; 71046; 71250; 80048; 80053; 83036; 83615; 83880; 83986; 84155; 84478; 85014; 85018; 85025; 85027; 85610; 86850; 86900; 86901; 87015; 87070; 87116; 87205; 88112; 89051; 93005; 99285

== ENCOUNTER → 2024-05-29 15:38 | Outpatient (REF) | payer OTHER, SELFPAY | LOC: HWRAD 15:38 | PROVIDERS: ATTENDING PHYSICIAN Nurse Practitioner Adult Health; FAMILY PHYSICIAN Family Medicine; REFERRING PHYSICIAN Internal Medicine Cardiovascular Disease | DX: R06.02 Shortness of breath (principal) | CPT/HCPCS: 71046 ==

== ENCOUNTER → 2024-06-02 08:21 | Outpatient (REF) | payer OTHER, SELFPAY ==
[2024-06-02 08:45] VITALS: BP 112/65; BP_SYST 68
[2024-06-02 09:30] VITALS: BP 105/65; BP_SYST 68
[2024-06-02 10:19] LABS: Body Fluid pH 7.53
[2024-06-02 10:25] LABS: Body Fluid Mononuclear 92.9 %; Body Fluid Polymorphonuclear 7.1 %; Body Fluid WBC 183 /CUMM
[2024-06-02 10:27] LABS: Body Fluid Second Tech CMB
[2024-06-02 10:32] LABS: Body Fluid Glucose 109 mg/dl; Body Fluid LDH < 90 U/L; Body Fluid Protein < 2.0 g/dl
== END ==
LOC: RADI 08:21
PROVIDERS: ATTENDING PHYSICIAN Physician Assistant Medical; FAMILY PHYSICIAN Family Medicine
DX: J90 Pleural effusion, not elsewhere classified (principal)
CPT/HCPCS: 88305; 32555; 71045; 82945; 83615; 83986; 84157; 87015; 87070; 87102; 87116; 87205; 87206; 88112; 89051

== ENCOUNTER → 2024-06-09 09:19 | Outpatient (REF) | payer OTHER, SELFPAY ==
[2024-06-09] MEDS: VANCOCIN 200 IV (10:19)
[2024-06-09 10:26] VITALS: BP 125/61; BP_SYST 64
[2024-06-09 11:45] VITALS: BP 113/56; BP_SYST 60
[2024-06-09 12:00] VITALS: BP 116/57; BP_SYST 60
[2024-06-09 12:15] VITALS: BP 119/58; BP_SYST 60
[2024-06-09 12:55] VITALS: BP 118/50
== END ==
LOC: RADI 09:19
PROVIDERS: ATTENDING PHYSICIAN Nurse Practitioner Adult Health
DX: J90 Pleural effusion, not elsewhere classified (principal)
CPT/HCPCS: 32550; 75989; 99152; 99153; C1729; C1769

== ENCOUNTER 2024-06-17 18:13 | Inpatient (IN) | payer OTHER, SELFPAY ==
[2024-06-17] VITALS (8 sets, daily range): BP systolic 111–132; BP diastolic 53–65; BMI 25.6; BMI 24.5
[2024-06-17 13:36] LABS: % Basophils 0.8 % (0-2); % Eosinophils 4.1 % (0-6); % Immature Granulocytes 0.3 % (0-0.5); % Lymphocytes 20.5 % (20.5-51.1); % Monocytes 5.5 % (1.7-9.3); % Neutrophils 68.8 % (42.2-75.2); Absolute Basophils 0.1 10^3/uL (0-0.2); Absolute Eosinophils 0.4 10^3/uL (0-0.7); Absolute Lymphocytes 1.9 10^3/uL (1.2-3.4); Absolute Monocytes 0.5 10^3/uL (0.1-0.6); Absolute Neutrophils 6.2 10^3/uL (1.4-6.5); Hematocrit 27.5 % (39.0-52.0); Hemoglobin 8.6 g/dL (13.0-18.0); Mean Corp Hgb Conc. 31.3 g/dL (33.0-37.0); Mean Corpuscular Hgb 28.8 pg (27.0-31.0); Mean Platelet Volume 10.9 fL (7.4-10.4); Nucleated Red Blood Cells % 0 % (-); Platelet Count 179 10^3/uL (130-400); Red Blood Cell Count 2.99 10^6/uL (4.70-6.10); Red Cell Dist. Width 17.6 % (11.5-14.5); White Blood Cell Count 9.1 10^3/uL (4.8-10.8)
[2024-06-17 13:42] LABS: INR 1.09; PT 14.4 Sec (11.4-14.6)
[2024-06-17 13:43] LABS: APTT 36.1 Sec (23.4-35.0)
[2024-06-17 13:49] LABS: ALT (SGPT) 25 U/L (0-50); AST (SGOT) 45 U/L (17-59); Albumin 2.9 g/dl (3.5-5.0); Alkaline Phosphatase 86 U/L (38-126); Blood Urea Nitrogen 31 mg/dl (9-20); Calcium 8.6 mg/dl (8.4-10.2); Carbon Dioxide 23 mmol/L (22-30); Chloride 107 mmol/L (98-107); Glucose 128 mg/dl (70-99); Potassium 3.7 mmol/L (3.5-5.1); Sodium 138 mmol/L (135-145); Total Bilirubin 0.5 mg/dl (0.2-1.3); Total Protein 6.8 g/dl (6.3-8.2); eGFR 42.75
--- NOTE | 2024-06-17 16:08 | ED.GENMED ---
History of Present Illness
General
Chief Complaint: Rectal Bleeding
Source: patient
Exam Limitations: none
Time Seen by Provider: 06/17/24 15:17
Nursing documentation reviewed up to this point in time: agreed with
History of Present Illness
History of Present Illness:
Patient to ED wt complant of weakness, black stools, itchy rash on back. Symptoms started yesterday. Denies abd. pain but states he is passing stool more frequent. Describes stool as black and soft. He is on eliquis. Daughter states he has
had bleeding in the past from eliquis. Dose was stopped yesterday. Brought to ED by daughter for eval.
Past History
Past History
ED Past Medical History: Arrthythmia (afib), CHF, HTN, Hypercholesterolemia, Renal failure, Valvular disease and Other (AAA)
ED Past Surgical History: Cardiac (aaa s/p repair;) and Other (Pleura cath right chest)
Social History
Tobacco: Former smoker (Quit in 1987)
Alcohol: Occasional
Drug: None
Personal:
Living: alone
Review of Systems
Review of Systems
Allergies reviewed?: Yes
All Other Systems: ROS reviewed and negative except as documented in HPI and ROS
Constitutional: Reports fatigue
EENT: Reports no symptoms
Respiratory: Reports no symptoms
Cardiac: Reports no symptoms
ABD/GI: Reports black stools
: Reports no symptoms
Skin: Reports rash (Itchy rash to back and chest)
Neurological: Reports weakness
Psychiatric: Reports no symptoms
Phy Exam
General Physical Exam
General Presentation: well appearing
General age: appears stated age
General Skin: warm and dry
General Habitus: normal
General Mental: alert
Cardiovascular Exam
Cardiovascular Exam: regular rate/rhythm and no edema
Pulmonary Exam
Pulmonary Exam: lungs clear and no respiratory distress
Gastrointestinal Exam
Gastrointestinal Exam: normal bowel sounds, non tender, soft, no organomegaly, no pulsatile mass and non distended
Rectal Exam: normal external exam, normal sphincter tone and soft stool
Stool: brown
Guaiac Status: positive
Musculoskeletal Exam
Musculoskeletal Exam: full ROM and neuro vasc intact
Skin Exam
Skin Exam: normal color, warm/dry and other (SMall scattered pink papules to back and chest. Pruritic)
Psychiatric Exam
Psychiatric Exam: normal mood/affect
Course
Orders/Labs/Results
Orders:
Orders
06/17/24 13:06
EKG [Electrocardiogram (*1)] Urgent
Reason for Study: Fatigue / Weakness
EKG- Treatment ONCE
06/17/24 13:07
CXR2 [CR Chest - 2 Views ] Urgent
Comment:
Reason For Exam: sob
06/17/24 13:17
Type+Screen Urgent
Complete Blood Count/With Diff Urgent
Comprehensive Metabolic Panel Urgent
PTT Urgent
Prothrombin Time Urgent
06/17/24 Dinner
Clear Liquid
At Your Request: Full Participation
06/17/24 16:17
0.9% Sodium Chloride 500 ml [Nss] 500 ml IV BOLUS
Pantoprazole [Protonix IV] 40 mg IV NOW STA
06/17/24 16:18
HydrOXYZINE [Atarax] 12.5 mg PO NOW STA
06/17/24 17:32
CARDIOLOGY CONSULT Routine
Consulting Provider: Rajeev Rodarte
Was physician already notified: Yes
Reason for consult: afib elqiuis gi bleed , hx chf r plueral drain
06/17/24 17:33
GASTROINTESTINAL CONSULT Routine
Consulting Provider: Douglas John
Was physician already notified: Yes
Reason for consult: upper gi bleed hsi GAVE wi bleed 2/5 and argon painting
06/17/24 17:48
Admit/Transfer Patient As Directed
Co-Sign Provider:
Level of Care: Inpatient admission
Assign to:: Telemetry
Physician / Group: jacki myers
Diagnosis: upper gi bleed, hx gave, on eliquis for afib, R pluerex tube needs drained
Reason for Telemetry: Arrhythmia
Date to Stop Telemetry: 06/20/24
Time to Stop Telemetry: 11:00
Reason for Hospitalization: upper gi bleed, hx gave, on eliquis for afib, R pluerex tube needs drained
Expected length of stay greater than two midnights?: Yes
ELOS- Estimated Length of Stay in days: 5
I certify the patient meets the requirements for IP care: Yes
Code Status As Directed
Resuscitation Status: Full Code
06/17/24 17:51
PRN Pain Medication Management As Directed
May give lesser potent ordered pain med per pt: Yes
preference::
Protocol:: Medication orders for pain may be administered in a
manner that supports deferring to patient preference
when the pt is:
- Requesting an ordered lesser potent pain medication.
Least to most potent pain medications are defined
as: acetaminophen < NSAID < tramadol < opioids
(morphine, oxycodone, hydromorphone).
- Requesting a lesser dose of the same medication IF
ORDERED.
- Requesting a less intrusive route of administration
if both routes are prescribed by the provider (PO <
IV).
06/17/24 21:30
H&H Q8H
06/17/24 22:13
Acetaminophen [Tylenol] 650 mg PO Q4HPRN PRN
06/17/24 22:13
Activity As Directed
Activity Level: With Assistance
Intake/ Output As Directed
Frequency: Per unit guidelines
Pneumatic Compression Sleeves As Directed
Type: Knee high
Vital Signs As Directed
Frequency: Per unit guidelines
Weight As Directed
Frequency: Daily
Pulse Ox/spot Check [RESP] Routine
Quantity: 1
Ot Eval And Treat Routine
Pt Eval And Treat Routine
Activity Level: With Assistance
DX Deep Vein Thrombosis Video Routine
06/17/24 22:30
Melatonin 10 mg PO HS
06/18/24 05:00
H&H Q8H
06/18/24 06:00
Complete Blood Count/With Diff IN AM
Comprehensive Metabolic Panel IN AM
06/18/24 08:00
Pantoprazole [Protonix IV] 40 mg IV BID
06/18/24 10:00
IRAD CONSULT Routine
Consulting Provider: Brandon Carrera
Was physician already notified: Yes
Reason for Consult/Procedure: right pluerex cath needs drain every other day is due 06/18
Acknowledgement that appropriate orders are entered: Yes
06/18/24 13:00
H&H Q8H
06/18/24 21:00
H&H Q8H
06/19/24 05:00
H&H Q8H
06/19/24 06:00
Complete Blood Count/With Diff IN AM
Comprehensive Metabolic Panel IN AM
06/19/24 13:00
H&H Q8H
06/20/24 06:00
Complete Blood Count/With Diff IN AM
Comprehensive Metabolic Panel IN AM
06/20/24 11:00
DC Protocol for Telemetry ONCE
06/21/24 06:00
Complete Blood Count/With Diff IN AM
Comprehensive Metabolic Panel IN AM
Abnormal Lab Results
06/17/24
13:17
RBC 2.99 L 10^6/uL
(4.70-6.10)
Hgb 8.6 L g/dL
(13.0-18.0)
Hct 27.5 L %
(39.0-52.0)
MCHC 31.3 L g/dL
(33.0-37.0)
RDW 17.6 H %
(11.5-14.5)
MPV 10.9 H fL
(7.4-10.4)
APTT 36.1 H Sec
(23.4-35.0)
BUN 31 H mg/dl
(9-20)
Creatinine 1.6 H mg/dL
(0.7-1.3)
Glucose 128 H mg/dl
(70-99)
Albumin 2.9 L g/dl
(3.5-5.0)
06/17/24 13:17
06/17/24 13:17
Vital Signs
Initial and Last Documented VS:
Initial Vital Signs
Temp Pulse Resp BP Pulse Ox
97.5 F 65 18 116/60 98
06/17/24 12:59 06/17/24 12:59 06/17/24 12:59 06/17/24 12:59 06/17/24 12:59
Last Documented Vital Signs
Temp Pulse Resp BP Pulse Ox
97.6 F 61 18 132/63 100
06/17/24 22:26 06/17/24 22:26 06/17/24 22:26 06/17/24 22:26 06/17/24 22:26
*Radiology
Radiology exam reviewed: radiology read reviewed
*Pulse Oximetry
Patient hypoxic: no
*Critical Care Note
Total Time (30-74mins, 75-104mins- exclusive of procedures): Not Applicable
Update Note
Update Note:
Patient to ED with complaint of weakness/fatigue, black stools, skin rash to back and chest. Symptoms started yesterday. Stool soft dark brown, heme pos. IVF, protonix ordered. Hgb 8.6, sli decrease from 9.1. WIll admit to hospitalist service.
Itchy papules noted on back and chest. Unknown cause. Will give atarax for comfort.
ED Attending Note
-
Portions of this chart may have been created with voice recognition software.� Occasional wrong word or��sound alike� substitutions may have occurred due to the inherent limitations of voice recognition software.
Discharge Plan
Departure
Patient Disposition: Admit
Date of Disposition: 06/17/24
Time of Disposition: 16:16
Presentation/result/management discussed w/ accepting MD/DO: Hospitalist
Condition: Fair
Covid-19: Not Applicable
Discharge Problem:
GI bleeding
Interventions
Interventions:
*Risk Screen - Suicide Last Done: 06/17/24 12:59
*Neglect/Abuse Screening Last Done: 06/17/24 12:59
*Nursing Disposition Last Done: 06/17/24 22:05
SV-Ttjhpd-Tdrirksveg Assessment Last Done: 06/17/24 17:05
ED- Cardiac Assessment Last Done: 06/17/24 17:05
ED- Pulmonary Assessment Last Done: 06/17/24 17:05
Discharge Date and Time
Discharge Date/Time: 06/17/24 22:05
--- NOTE | 2024-06-17 16:31 | HPS.HSE ---
Family Physician
-
Family Physician: Santino Lopez
Chief Complaint
-
Lightheadedness with activity, black stools x 3 days, rash to back x 1 month with pruritus
History of Present Illness
84-year-old male complaining of lightheadedness with activity, black stools for the past 3 days, He is on Eliquis for A-fib however last dose was yesterday evening 06/15/2024 at 2100. His daughter is at bedside with him stating he has had bleeding
in the past from Eliquis. He just resumed his Eliquis on 06/10/2024. He also has a macular scattered rash to his back with only few areas to trunk that is pruritic including his scalp that is pruritic but free of rash. He states he has had it for
about a month since he started using the hospital shampoo. I advised him to stop using the hospital shampoo his daughter will pick him up baby shampoo. He was given Atarax in the ER which helped the itching I will also give him hydrocortisone
cream. He also has a right Pleurx catheter placed outpatient on June 09 it gets drained every other day with home care most recent drainage 226, 228 and 3 3 approximately 1000 cc each time. The patient was just admitted to [facility]
05/20 - 05/22/2024 due to chronic GI bleed, recurrent right pleural effusion, CHF. He had prior right sided thoracentesis with drainage on 05/07 and 05/14/2024 following an acute GI bleed for EGD was done. The fluid was sent for analysis.
Other past medical history includes A-fib, chronic CHF, HTN, HLD, CKD, valvular disease, AAA status postrepair, recurrent right pleural effusions status post Pleurx cath right chest 06/09/2024, former smoker quit 1987
Medical History
Past Medical History
Past Medical History: Reports Arrhythmia (Paroxysmal atrial fibrillation on anticoagulation, status post ablation, status post PPM), CHF (CHF with reduced EF, status post CASE CONSULTANT-D/AICD), HTN and Renal Failure (Stage IIIb CKD)
Additional Past Medical History:
History of GI bleed
AAA without rupture status post EVAR
Past Surgical History: Reports Other
Additional Past Surgical History:
status post Pleurx cath right chest 06/09/2024
Pacemaker left upper chest wall
Social History
Tobacco: Non-smoker
Alcohol: Occasional
Drug: None
Personal: (Since 12/30/2021)
Living: Alone (Apartment no stairs)
Employment: Retired
Family History
Family History: Not pertinent
Allergies / Home Medications
Allergies reflects when Allergies were last updated in [facility].
Home Medications with original date entered in [facility]
Allergy/Medication List:
Allergies
Allergy/AdvReac Type Severity Reaction Status Date / Time
Penicillins Allergy over 40 Verified 06/17/24 12:58
years ago,
localized
arm skin
peeling
Home Medications
atorvastatin 20 mg tablet 20 mg PO HS High Cholesterol 04/03/23
docusate sodium 100 mg capsule (Stool Softener) 100 mg PO HS Constipation 07/12/23
melatonin 10 mg tablet 10 mg PO HS Sleep 07/12/23
metoprolol succinate 25 mg tablet,extended release 24 hr 25 mg PO HS Blood Pressure 05/06/24
therapeutic multivitamin 1 tab PO DAILY Supplement 05/12/24
pantoprazole 40 mg tablet,delayed release (Protonix) 40 mg PO BID Gastrointestinal Issue 05/21/24
ferrous sulfate 325 mg (65 mg iron) tablet 325 mg PO DAILY #30 tabs 05/22/24
apixaban 2.5 mg tablet (Eliquis) 2.5 mg PO BID 06/17/24
furosemide 40 mg tablet 40 mg PO SUTUTHSA Heart Failure 06/17/24
furosemide 40 mg tablet 60 mg PO MOWEFR 06/17/24
Review of Systems
-
History Source: Patient and Family (Daughter Teagan POA bedside)
A 12 point ROS was completed and negative except as noted: Yes
Constitutional: Reports Fatigue (With activity); Denies Fever or Chills
EENT: Denies Sore Throat or Runny Nose
Respiratory: Reports Other (DORSEY with activity); Denies Cough
Cardiac: Denies Chest Pain, Diaphoresis, Palpitations or Syncope
Abdomen/GI: Reports Black Stools (3 days); Denies Abdominal Pain, Nausea, Vomiting, Diarrhea, Constipated or Bloody Stools
: Denies Dysuria, Frequency, Flank Pain, Incontinence, Difficulty Voiding or Urgency
Musculoskeletal: Denies Joint Pain or Edema
Skin: Reports Itching and Rash (Macular scattered rash to back slight scattered approximately 10 areas to front abdomen since using hospital shampoo x 1 month)
Neurological: Reports Dizzy (With activity); Denies Headache or Weakness
Endocrine: Reports No Symptoms
Hematologic/Lymphatic: Reports No Symptoms
Psych: Reports Calm
Physical Exam
Vital Signs
Vital Signs
Temp Pulse Resp BP Pulse Ox
97.5 F 65 18 116/60 98
06/17/24 12:59 06/17/24 12:59 06/17/24 12:59 06/17/24 12:59 06/17/24 12:59
Physical Exam
General: Comfortable and Conversant; No Pain, Fever or Chills
HEENT: NormoCephalic, Anicteric, Moist mucous membranes, PERRLA, [place] Conjunctivae and No Ptosis
Respiratory: Clear and Other (Right sided Pleurx tube in place with 4 x 4 over top); No Wheezes or Rales
Cardiac: S1/S2, Regular Rhythm and Other (Pacemaker left upper chest wall); No Murmur, Rub, Gallop or Peripheral Edema
GI: Soft, Non Tender, Non Distended, Normal Bowel Sounds and No Hepatosplenomegaly
Rectal: Hem Positive (Brown by ER provider)
Genito-urinary: Deferred by me
Musculoskeletal: No Clubbing, No Cyanosis and No Edema
Skin: Warm, Dry and Rash (Macular scattered rash to back slight scattered approximately 10 areas to front abdomen since using hospital shampoo x 1 month)
Neuro: AO x 3, No Motor Deficits, Nonfocal/grossly intact, Cranial Nerves Intact and No Sensory Deficits; No Slurred Speech, Facial Droop, Tremors or Sedated
Psych: Calm
Laboratory Results
-
06/17/24 13:17
06/17/24 13:17
Laboratory Results
PT 14.4 Sec (11.4-14.6) 06/17/24 13:17
INR 1.09 06/17/24 13:17
APTT 36.1 Sec (23.4-35.0) H 06/17/24 13:17
Total Bilirubin 0.5 mg/dl (0.2-1.3) 06/17/24 13:17
AST 45 U/L (17-59) 06/17/24 13:17
ALT 25 U/L (0-50) 06/17/24 13:17
Alkaline Phosphatase 86 U/L (38-126) 06/17/24 13:17
Data Reviewed
-
Diagnostic Radiology: Report Reviewed by me
Lab Data: Labs Reviewed by me
Impression/Plan
-
IMPression/plan:
Admit to telemetry
# UPPER GI bleed with recent 05/22/2024 mild gastric antral vascular ectasia with bleeding present in gastric antrum argon plasma was successful
Hgb 8.6 < 10.8 on 05/21/2024
-Type and screen, obtain blood consent
-Hold Eliquis
-Consult GI
-IV PPI bid
-Clear liquids okay with GI
H&H every 8 hours
Follow CBC, CMP
EGD 05/22/2024
the examined esophagus was normal.
Mild gastric antral vascular ectasia with bleeding was present in the gastric antrum. Coagulation for hemostasis using argon plasma was successful.
Estimated blood loss was minimal.
The examined duodenum was normal.
The examined jejunum was normal.
COLO 05/22/2024
The perianal and digital rectal examinations were normal.
Multiple small-mouthed diverticula were found in the sigmoid colon and descending colon.
Internal hemorrhoids were found during retroflexion. The hemorrhoids were small.
The exam was otherwise without abnormality.
#Allergic skin rash to back from hospital shampoo
Macular scattered rash to back slight scattered approximately 10 areas to front abdomen since using hospital shampoo x 1 month
-Advised patient to stop using daughter will purchase baby shampoo
-Patient given Atarax in ER which stopped the itching I will continue to order
-Apply hydrocortisone to back as needed
#Hypertension
BP 116/60
-Hold furosemide
Continue metoprolol succinate 25 mg at bedtime with hold parameters
#CKD, stage 3b
Creat 1.6 baseline appears 1.41.5
-Follow BMP
#Recurrent right pleural effusion secondary to chronic CHF
#Hx pleural cath present right lung
Status post 2000 cc thoracentesis-05/07/2024
Status post 1000 cc clear yellow pleural fluid 05/14/2024
-Consult interventional radiology for Pleurx catheter drainage every other day due tomorrow 06/18/2024
CXR:Tunneled pleural catheter is present projecting over the right lower hemithorax. Interval decrease in size of right pleural effusion. Interval decrease in right mid to lower lung atelectasis.
#History of Recovered nonischemic cardiomyopathy, EF 30-35% April 2023> EF 56% 04/2024
#Chronic HFrEF
I/O, daily weights
-Hold furosemide
Nuclear stress test 12/03/21: Normal perfusion, LVEF 25%, no SWMA, TID 0.93
ECHO 05/07/24: EF 56%, mildly enlarged RV size, pacer wire in RV, mild biatrial enlargement, MAC, trace MR, mild to moderate AR, mild TR, mild AK, dilated aortic root, color flow pattern suggestive of small PFO versus ASD
ECHO 10/22/2023 EF 35%. Global hypokinesis with inferior akinesis. Mild concentric LVH. Mild to moderate AI.
#Paroxysmal atrial fibrillation
HOLD Eliquis due to GI bleed
-Consult [facility] cardiology Dr. Christiane altamirano
Pulmonary vein isolation December 2022
repeat AFib/Atach ablation 01/15/24
OAC with eliquis (HOLD due to GI bleed)
#[employer] pacemaker 2013, upgraded to CASE CONSULTANT ICD 07/04/2023
#Hypercholesterolemia
-Hold atorvastatin 20 mg at bedtime
#Abdominal aortic aneurysm repair 2016
DVT prophylaxis
Hold Eliquis
Use SCDs
Full code
--- NOTE | 2024-06-17 16:46 | W.PN.UPDATE ---
Update Note
Progress Note Update
This note serves as an addendum to the H&P by chief dispatcher GLORIA
Janice SONU
I saw and examined the patient.
The SAP SPECIALIST or PA's note was reviewed and I agree with the note.
Comment:
HPI
84M mHX Prx AF, chr Eliquis, chr HFpEF, Pleura cath, recurrent Rt sided pleural effusion, HTN, CKD3b, HTN AAA status post EVAR, HX ETOH use disorder seen at ER:
- pw acute onset of weakness, more frequent black stools, itchy rash on back.
- Describes stool as black and soft
- Eliquis was stopped since yesterday 06/18/23Sunday
- HX GIB from Eliquis in the past
ROS
Denies abd. pain but states he is passing stool more frequent.
PHX; see as above
Laboratory Tests
05/22/24 06/17/24
06:16 13:17
WBC 9.1
Hgb 9.1 L 8.6 L
Plt Count 179
BUN 31 H
Creatinine 1.5 H 1.6 H
eGFR 46.48 42.75
Albumin 2.9 L
05/07/24 TTE
LVEF 56%
Mildly enlarged RV size with normal RV systolic function. Pacer wire seen in right ventricle.
Trace MR
mild - mod AR
Mild TR. No eveidence of PHT
Mild MD
Color flow pattern suggestive of small PFO vs ASD. No bubble study on current study.
EKG
AV dual-paced rhythm WITH OCCASIONAL PREMATURE VENTRICULAR COMPLEXES
ABNORMAL ECG
WHEN COMPARED WITH ECG OF 19-MAY-2024 16:51,
PREMATURE VENTRICULAR COMPLEXES ARE NOW PRESENT
VENT. RATE HAS DECREASED BY 10 BPM
Confirmed by DAKOTA ROSAS, LUANA ([id number]) on 06/17/2024 1:37:52 PM
CXR
Tunneled pleural catheter is present projecting over the right lower hemithorax. Interval decrease in size of right pleural effusion. Interval decrease in right mid to lower lung atelectasis.
ASSESSMENT & PLAN
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
Associated ACBLA
Recent EGD results suggests eliquis associated bleeding and eliquis reduced.
HD stable and Hgb stable.
Last dose of Eliquis: 06/18/23Sunday
Of note : Gastric antral vascular ectasia with bleeding. Rx with argon plasma coagulation (APC).
- Clear
- Hold eliquis
- IV PPI BID
- to consider alternative to anticoagulation in afib such as watchman.
- GI consult
AV dual-paced rhythm
HX A Fib
- Holding Eliquis
- on PERMIT TECHNICIAN metoprolol
HX recurrent pleural effusion
Has Rt sided Pleura cath
DVT Px: SCD
Full code
IP TLM
[2024-06-17] MEDS: PROTONIX IV 40 MG IV (16:48)
[2024-06-17] MEDS: NSS 500 IV (16:48)
[2024-06-17] MEDS: ATARAX 12.5 MG PO (16:48)
[2024-06-17 21:38] LABS: Hematocrit 24.6 % (39.0-52.0); Hemoglobin 7.7 g/dL (13.0-18.0)
[2024-06-17] MEDS: HYDROCORTISONE 2.5% CREAM 1 APPLIC TOPICAL (22:40)
[2024-06-17] MEDS: MELATONIN 10 MG PO (22:41)
[2024-06-18] VITALS (8 sets, daily range): BP systolic 109–135; BP diastolic 46–77; PULSE 61–63; O2SAT 99–100; BMI 24.5
--- NOTE | 2024-06-18 06:48 | CON.GI ---
Addendum entered and electronically signed by Robetr Elias DO 06/18/24 16:52:
I saw and examined the patient.
The PRESS AND BLOW MACHINE TENDER's note was reviewed and I agree with the note.
Comment: Mr. Fatima is a very pleasant 84 y.o. male with past medical history of NICM, HFrEF (EF 30-35% w/ EF recovery 56% on TTE 04/2024), AICD, pAfib (on dose-reduced eliquis), prior PVI ablation, CKD, AAA s/p repair, recurrent R pleural effusions
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
Reviewed recent endoscopy records as detailed below. Initial EGD 05/14/24 was concerning for nodular GAVE versus gastritis with biopsies (-) for H pylori. His eliquis was then reduced from 5 mg to 2.5 mg BiD and his Hgb remained stable without need
for transfusions and was eventually discharged as patient opted to defer further procedures at that time. He represented again on 05/20/24 with recurrent dark black stools concerning for recurrent GI bleeding. Repeat EGD 05/22/2024 revealed mild GAVE
(felt to be possible source of recurrent GI bleeding) and was treated with APC. No other AVMs or vascular lesions were visualized up to the jejunum. A colonoscopy on 05/22/2024 revealed diverticulosis in the sigmoid and descending colon without any
other bleeding lesions or other significant findings. He was discharged with PPI and eventually his eliquis was restarted. He did not require blood transfusions again at during that admission. As an outpatient once his Eliquis restarted, he had
intermittent dark black stools while at home despite ongoing PPI therapy. His Eliquis was again held for one week and then resumed at a lower dose. Now re-presenting a third time with symptomatic anemia and dark black stools along with the acute
drop in hemoglobin.
#Recurrent GI bleeding: The etiology of his recurrent GI bleeding is still somewhat unclear and possibly related to mild GAVE seen during his prior EGD s/p prior APC on 05/2024 however a small bowel source has not yet been ruled out (i.e. small bowel
AVMs, etc.) although his prior EGD did reach the jejunum without any visualized AVMs. Discussed risks and benefits about pursuing a potential EGD versus a conservative approach which is certainly reasonable given his comorbidities- particularly his
recurrent right recurrent pleural effusion (now s/p Pleurx catheter). Discussed that we could potentially pursue a repeat EGD with potential repeat ablation of GAVE as if he were to undergo a repeat EGD this would be safer to perform in the
hospital rather than coordinate this as an outpatient. However, GAVE has been known to recur and repeat therapy with APC may only be a temporary benefit. The other alternative is holding off on any further endoscopic interventions as he is without
any large-volume melena, need for blood transfusions, and remains hemodynamically stable while holding his anticoagulation. However, if this is to be restarted I feel that he will most likely rebleed in the future. Ultimately this is a difficult
situation and after prolonged discussions with patient's daughter, Samina, along with using shared patient decision making with patient he opted to defer any further endoscopic interventions at this time. Furthermore, would defer any plans on
pursuing a VCE as well as this would not change the overall management and patient further again expressed he would not want any further endoscopic procedures (ie deep versus retrograde enteroscopy if a SB AVM were to be found). Defer to Cardiology
regarding risks and benefits regarding his known stroke risk if eliquis were to be held indefinitely given his refractory GI bleeding. For now, will defer any further plans in pursuing an endoscopy at this juncture after prolonged discussions this
afternoon. If patient's clinical course to change to warrant an endoscopy or if patient were to change his mind could certainly reconsider but for now would continue trending his Hgb with serial CBC along with IV PPI BiD and IV iron. He has
follow-up with me as an outpatient on 06/24/2024 as well. Rest of care as detailed below.
Thank you for allowing me to participate in the care of this patient. Please do not hesitate to call for any further questions.
GI team will continue to follow while inpatient.
Original Note:
Consultation
-
Date/Time Consultation Requested: 06/17/24 1730
Date/Time Consultation Performed: 06/18/24 0700
Requesting Provider: NIKOLAY Pearl
Performing Provider: NIKOLAY Harvey, Douglas John MD
Reason for Consultation: GI bleed
Medical History
Chief Complaint / HPI
Chief Complaint: melena
History of Present Illness:
83-year-old male with past medical history of nonischemic cardiomyopathy, heart failure with reduced ejection fraction (30 to 35% with repeat 05/07 56%), paroxysmal A-fib, prior PVI ablation, chronic kidney disease, hyperlipidemia, abdominal aortic
aneurysm status postrepair, prior ETOH use, AICD with several recent admissions. In review of records multiple recent admission. 05/07 with noted right pleural effusion with thoracentesis with now Pleux cath in place since May. Pt was on
Eliquis 2.5 mg daily and increased to 5mg BID. He was then admitted 05/12 til 05/14 with GI bleeding. He completed EGD with Dr. Elias with noted erythema, granular, mild nodular and petechial mucosa in antrum and prepyloric region of stomach.
Otherwise normal without ulcers, lesion, AVM or old/fresh blood. During that admission Eliquis was changed back to 2.5mg BID. He returned 05/20 til 05/22 with shortness of breath with drop in hgg 11 to 8.7 with heme + dark stools. He repeated EGD
with concern for GAVE with APC treatment and colonoscopy with diverticulosis and hemorrhoids. He was advised to hold anticoagulation for 1 week then resumed at lower dose. He now return with lightheadedness and black stools. HBG on discharge 05/22
was 9.1 and drop to 7.7 after admission with BUN up to 31. Pt is scheduled GI follow up 06/[address] Elias.
At this time patient admits to increased black stool last few days after restart of Eliquis having about 1 stool daily. Pt does admit to some chronic post nasal drip and crampy abdominal pain prior to BM's but denies dysphagia, GERD, nausea,
vomiting, diarrhea, constipation or red stools. No transfusion required since onset of bleeding.
Past Medical History
Past Medical History: Arrhythmias (PAF on Eliquis ), CHF (with reduced EF), HTN, Renal Failure (CKD), Valvular Disease and Other (ETOH abuse, pleural effusion s/p large volume thoracentesis, recurrent GI bleeding GAVE)
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
Social History
Tobacco: Former Smoker (quit 1987)
Alcohol: Occasional (rare)
Drug: None
Personal:
Living: Alone
Employment: Retired
Family History
Family History: Other (mother with stomach CA)
Allergies / Home Medications
Allergy/AdvReac Type Severity Reaction Status Date / Time
Penicillins Allergy over 40 Verified 06/17/24 12:58
years ago,
localized
arm skin
peeling
�Medication �Instructions �Recorded
atorvastatin 20 mg tablet 20 mg PO HS High Cholesterol 04/03/23
docusate sodium 100 mg capsule 100 mg PO HS Constipation 07/12/23
(Stool Softener)
melatonin 10 mg tablet 10 mg PO HS Sleep 07/12/23
metoprolol succinate 25 mg 25 mg PO HS Blood Pressure 05/06/24
tablet,extended release 24 hr
therapeutic multivitamin 1 tab PO DAILY Supplement 05/12/24
pantoprazole 40 mg tablet,delayed 40 mg PO BID Gastrointestinal Issue 05/21/24
release (Protonix)
ferrous sulfate 325 mg (65 mg 325 mg PO DAILY #30 tabs 05/22/24
iron) tablet
apixaban 2.5 mg tablet (Eliquis) 2.5 mg PO BID 06/17/24
furosemide 40 mg tablet 40 mg PO [facility] Heart Failure 06/17/24
furosemide 40 mg tablet 60 mg PO MOWEFR 06/17/24
Review of Systems
-
History Source: Patient and Family
Constitutional: Reports No Symptoms
EENT: Reports No Symptoms
Respiratory: Reports Trouble Breathing (with recurrent effusion)
Cardiac: Reports No Symptoms
Abdomen/GI: Reports Abdominal Pain (occasional crampy pain) and Black Stools
: Reports No Symptoms
Musculoskeletal: Reports No Symptoms
Skin: Reports No Symptoms
Neurological: Reports Weakness
Endocrine: Reports No Symptoms
Hematologic/Lymphatic: Reports Bleeding
Vital Signs
Temp Pulse Resp BP Pulse Ox
97.6 F 65 20 113/50 99
06/18/24 03:13 06/18/24 03:13 06/18/24 03:13 06/18/24 03:13 06/18/24 03:13
Physical Exam
Exam
General: Well Developed, Well Nourished and No Apparent Distress
HEENT: Normocephalic and Anicteric
Respiratory: Other (right pleurx --decreased right base )
Cardiac: Regular Rhythm
GI: Soft, Non Tender and Non Distended
Rectal: Other (heme + brown )
Musculoskeletal: No Clubbing and No Cyanosis
Skin: Warm and Dry
Neuro: Awake, Alert and AO x 3
Psych: Calm
Results
WBC 9.1 10^3/uL (4.8-10.8) 06/17/24 13:17
Hgb 7.7 g/dL (13.0-18.0) L 06/17/24 21:30
Hct 24.6 % (39.0-52.0) L 06/17/24 21:30
MCV 92.0 fL (80.0-94.0) 06/17/24 13:17
Plt Count 179 10^3/uL (130-400) 06/17/24 13:17
Absolute Neuts (auto) 6.2 10^3/uL (1.4-6.5) 06/17/24 13:17
PT 14.4 Sec (11.4-14.6) 06/17/24 13:17
INR 1.09 06/17/24 13:17
APTT 36.1 Sec (23.4-35.0) H 06/17/24 13:17
Sodium 138 mmol/L (135-145) 06/17/24 13:17
Potassium 3.7 mmol/L (3.5-5.1) 06/17/24 13:17
Chloride 107 mmol/L (98-107) 06/17/24 13:17
Carbon Dioxide 23 mmol/L (22-30) 06/17/24 13:17
BUN 31 mg/dl (9-20) H 06/17/24 13:17
Creatinine 1.6 mg/dL (0.7-1.3) H 06/17/24 13:17
Calcium 8.6 mg/dl (8.4-10.2) 06/17/24 13:17
Total Bilirubin 0.5 mg/dl (0.2-1.3) 06/17/24 13:17
AST 45 U/L (17-59) 06/17/24 13:17
ALT 25 U/L (0-50) 06/17/24 13:17
Alkaline Phosphatase 86 U/L (38-126) 06/17/24 13:17
Diagnostic Image Results:
05/19/24 CXR -Moderate loculated right pleural effusion. Significantly increased in quantity.
05/07/24 CT Chest W/o Iv Contrast
Findings suggesting bilateral lower lobe pneumonia, right greater than left.
Moderate right pleural effusion
05/06/24 thoracentesis
Successful ultrasound-guided thoracentesis, yielding 1750 cc of clear yellow pleural fluid.
Prior GI Procedures:
EGD: 05/14 stone Normal esophagus.
- Z-line regular, 42 cm from the incisors.
- Erythematous, granular, mild nodular and petechial
mucosa in the antrum and prepyloric region of the
stomach. Biopsied to rule out H pylori.
- Otherwise, normal stomach on direct and retroflexion
views.
- Normal examined duodenum up to the second portion.
- The examination was otherwise normal without any
ulcerations, lesions, AVMs or other old/fresh blood
throughout the upper examined GI tract.
05/22/24 EGD [facility] - Normal esophagus.
- Gastric antral vascular ectasia with bleeding.
Treated with argon plasma coagulation (APC).
- Normal examined duodenum.
- Normal examined jejunum.
- No specimens collected.
05/22/24 colonoscopy [facility]
- Normal esophagus.
- Gastric antral vascular ectasia with bleeding.
Treated with argon plasma coagulation (APC).
- Normal examined duodenum.
- Normal examined jejunum.
- No specimens collected.
Assessment / Plan
-
83-year-old male with past medical history of nonischemic cardiomyopathy, heart failure with reduced ejection fraction (30 to 35% with repeat 05/07 56%), paroxysmal A-fib, prior PVI ablation, chronic kidney disease, hyperlipidemia, abdominal aortic
aneurysm status postrepair, prior ETOH use, AICD with several recent admissions. In review of records multiple recent admission. 05/07 with noted right pleural effusion with thoracentesis with now Pleux cath in place since May. Pt was on
Eliquis 2.5 mg daily and increased to 5mg BID. He was then admitted 05/12 til 05/14 with GI bleeding. He completed EGD with Dr. Elias with noted erythema, granular, mild nodular and petechial mucosa in antrum and prepyloric region of stomach.
Otherwise normal without ulcers, lesion, AVM or old/fresh blood. During that admission Eliquis was changed back to 2.5mg BID. He returned 05/20 til 05/22 with shortness of breath with drop in hgg 11 to 8.7 with heme + dark stools. He repeated EGD
with concern for GAVE with APC treatment and colonoscopy with diverticulosis and hemorrhoids. He was advised to hold anticoagulation for 1 week then resumed at lower dose. He now return with lightheadedness and black stools. HBG on discharge 05/22
was 9.1 and drop to 7.7 after admission with BUN up to 31. No transfusions required since onset of bleeding.
-recurrent admission with dark heme + stool
-anemia secondary to blood loss with slow GI bleed.
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
-anemia with drop in hbg after admission
-pleural effusion with prior thoracentesis/pleux cath in place
-afib on Eliquis prior to admission
other med problems:
-non ischemic CM
-HFrEF recent EF improved on Echo
-PVI/ablation
-CKD
-hyperlipidemia
-AAA with repair
-prior ETOH use
-AICD /pacer
PLAN:
pt with recurrent black stool with drop in hbg with hx GAVE noted on recent EGD
no stools overnight and hbg up to 8.3 without transfusion--- Pt has not required any transfusion since onset of bleeding
Eliquis hold last dose Sunday
hbg with some drop 9.1 on 05/22 then 7.7 then 8.3 this am cont to follow hbg/BUN
for IR eval for Pleurx drainage -- for drainage now
cont PPI BID
long discussion with patient, daughter, [facility] with options. 1. Aggressive approach with repeat EGD/enteroscopy last scope to jejunum then OP capsule, 2. hold Eliquis with known stroke risk 3. Back to coumadin as pt states less
bleeding with use in past , 4. continue AC and follow up for heme for OP iron/transfusion.
Pt also can consider watchman(would need to review with cards if candidate) but would need AC for period of time
pt and daughter leaning towards no further scopes but will consider
will alllow diet today
if Pt wishes to proceed with scope then consider for AM
Pt is scheduled GI follow up 3/11with Dr. Elias.
-
-
Thank you for consultation and allowing me to participate in the patient's care. Please call the organic extractions technician GI physician during the after hours with any questions or concerns.
[2024-06-18 07:07] LABS: % Basophils 0.9 % (0-2); % Eosinophils 3.9 % (0-6); % Immature Granulocytes 0.4 % (0-0.5); % Lymphocytes 23.3 % (20.5-51.1); % Monocytes 7.7 % (1.7-9.3); % Neutrophils 63.8 % (42.2-75.2); Absolute Basophils 0.1 10^3/uL (0-0.2); Absolute Eosinophils 0.3 10^3/uL (0-0.7); Absolute Lymphocytes 1.7 10^3/uL (1.2-3.4); Absolute Monocytes 0.6 10^3/uL (0.1-0.6); Absolute Neutrophils 4.7 10^3/uL (1.4-6.5); Hematocrit 25.9 % (39.0-52.0); Hemoglobin 8.3 g/dL (13.0-18.0); Mean Corpuscular Hgb 29.2 pg (27.0-31.0); Mean Corpuscular Volume 91.2 fL (80.0-94.0); Mean Platelet Volume 11.2 fL (7.4-10.4); Nucleated Red Blood Cells % 0 % (-); Platelet Count 152 10^3/uL (130-400); Red Blood Cell Count 2.84 10^6/uL (4.70-6.10); Red Cell Dist. Width 17.9 % (11.5-14.5); White Blood Cell Count 7.4 10^3/uL (4.8-10.8)
[2024-06-18 07:26] LABS: ALT (SGPT) 24 U/L (0-50); AST (SGOT) 43 U/L (17-59); Albumin 2.6 g/dl (3.5-5.0); Alkaline Phosphatase 78 U/L (38-126); Blood Urea Nitrogen 28 mg/dl (9-20); Calcium 8.3 mg/dl (8.4-10.2); Carbon Dioxide 21 mmol/L (22-30); Chloride 108 mmol/L (98-107); Estimated Creatinine Clearance 45 ml/min; Glucose 98 mg/dl (70-99); Potassium 3.7 mmol/L (3.5-5.1); Sodium 139 mmol/L (135-145); Total Bilirubin 0.7 mg/dl (0.2-1.3); Total Protein 6.1 g/dl (6.3-8.2); eGFR 50.18
--- NOTE | 2024-06-18 08:20 | VNURNOTE ---
Chart reviewed. Patient is current with [facility] nursing. Will continue to follow hospital course and DC plans.
[2024-06-18] MEDS: NSS (PRESERVATIVE FREE) 10 ML IV ×2 (09:20→19:58)
[2024-06-18] MEDS: HYDROCORTISONE 2.5% CREAM 1 APPLIC TOPICAL ×2 (09:20→19:58)
[2024-06-18] MEDS: PROTONIX IV 40 MG IV ×2 (09:20→19:59)
[2024-06-18] MEDS: FLUSH (NSS) 1 FLUSH IV (09:21)
--- NOTE | 2024-06-18 10:01 | PN.IRAD.UPD ---
Update Note - IRAD
- -
Right Asept catheter drained bedside, dressing was saturated when removed. 1000ml of chylous fluid drained. Site cleaned with alcohol and dressed with foam/4x4 and tegaderm.
--- NOTE | 2024-06-18 10:47 | CON.CAR ---
Addendum entered and electronically signed by Donte Verdin MD 06/18/24 12:35:
I saw and examined the patient.
The Oil Well Perforator Operator's note was reviewed and I agree with the note.
Comment: Briefly, 84-year-old man past medical history of heart failure with recovered ejection fraction status post BIAS BINDING CUTTER-D, recurrent pleural effusion with Pleurx catheter in place, atrial fibrillation/atrial tachycardia with multiple prior
ablations and upper GI bleed who presents with weakness and dark stools concerning for recurrent GI bleeding.
Patient has had multiple admissions for upper GI bleed and was found to have GAVE on prior endoscopy
Previously maintained on Eliquis 5 mg twice daily but dose was reduced given recurrent bleeding and most recently he has been on 2.5 mg twice daily
Discussed with patient, for now will need to hold anticoagulation due to recurrent bleeding
Currently maintaining normal sinus rhythm, will monitor for recurrence of A-fib on his defibrillator and if he has subsequent episodes can revisit the need for anticoagulation at that time
Appreciate gastroenterology input regarding anemia and need for possible repeat EGD
Appears euvolemic today on exam and creatinine is at baseline, would continue current Lasix dosing
But may need additional dosing if he receives blood transfusion
Rest per Krystin Pfeiffer
Original Note:
Consultation
Consultation Request
Date/Time Consultation Performed: 06/18/24
Requesting Provider: Dr. Goodwin
Performing Provider: Krystin Pfeiffer PA-C for Dr. Verdin
Reason for Consultation: recurrent GI bleeding
Medical History
-
Chief Complaint: weakness, dark stools
History of Present Illness:
83-year-old man with PMH significant for nonischemic cardiomyopathy, heart failure with reduced ejection fraction, paroxysmal atrial fibrillation with prior PVI ablations maintained on amiodarone, BIAS BINDING CUTTER ICD, CKD, hypertension, hypercholesterolemia,
AAA status post repair 2016 who presented to emergency department 05/06/2024 with progressively worsening shortness of breath. His outpatient dose of Lasix was uptitrated for several days without improvement of symptoms. He had mod R pleural
effusion and underwent R thoracentesis for 1750cc. Fluid was transudative. He was discharged 05/07. He then presented back to ER 05/12 with dark stools and EGD 05/14/24 was without clear etiology of bleed. He deferred colonoscopy and his eliquis dose
was decreased from 5mg BID to 2.5mg BID and he was discharged to home. He then had admission 05/19-05/22/24 for GI bleeding and underwent EGD/colon which showed evidence of GAVE with oozing gastric ectasia s/p APC. He also underwent R thoracentesis 05/20,
05/21. He also had R thoracentesis 06/02 as OP. He ultimately underwent R pleurx catheter placement 06/09/24. He now presents back for weakness and dark stool.
PMH:
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
Recurrent R pleural effusions, transudative resulting in R pleurx catheter placement 06/09/24
History of recovered nonischemic CM
Chronic HFimpEF
Paroxysmal atrial fibrillation
Pulmonary vein isolation 12/2022
repeat AFib/Atach ablation 01/15/24
Medtronic pacemaker 2013, upgraded to BIAS BINDING CUTTER ICD 07/04/2023
CKD, stage 3b
Hypercholesterolemia
Hypertension
Abdominal aortic aneurysm repair 2016
Past Medical History
Past Medical History: Other (See HPI)
Past Surgical History: Cardiac (PVI ablation December 2022, repeat ablation January 2024, pacemaker 2013 which was upgraded to BIAS BINDING CUTTER ICD June 2023) and Other (AAA repair 2016)
Social History
Tobacco: Former Smoker
Alcohol: Occasional
Drug: None
Personal:
Living: Alone
Employment: Retired
Family History
Family History: Reviewed & Not Pertinent
Allergies / Home Medications
Allergy/AdvReac Type Severity Reaction Status Date / Time
Penicillins Allergy over 40 Verified 06/17/24 12:58
years ago,
localized
arm skin
peeling
�Medication �Instructions �Recorded �Confirmed �Type
atorvastatin 20 mg tablet 20 mg PO HS High Cholesterol 04/03/23 06/17/24 History
docusate sodium 100 mg capsule 100 mg PO HS Constipation 07/12/23 06/17/24 History
(Stool Softener)
melatonin 10 mg tablet 10 mg PO HS Sleep 07/12/23 06/17/24 History
metoprolol succinate 25 mg 25 mg PO HS Blood Pressure 05/06/24 06/17/24 History
tablet,extended release 24 hr
therapeutic multivitamin 1 tab PO DAILY Supplement 05/12/24 06/17/24 History
pantoprazole 40 mg tablet,delayed 40 mg PO BID Gastrointestinal Issue 05/21/24 06/17/24 History
release (Protonix)
ferrous sulfate 325 mg (65 mg 325 mg PO DAILY #30 tabs 05/22/24 06/17/24 Rx
iron) tablet
apixaban 2.5 mg tablet (Eliquis) 2.5 mg PO BID 06/17/24 06/17/24 History
furosemide 40 mg tablet 40 mg PO [facility] Heart Failure 06/17/24 06/17/24 History
furosemide 40 mg tablet 60 mg PO MOWEFR 06/17/24 06/17/24 History
Review of Systems
-
History Source: Patient
All other systems: Negative unless noted
Physical Exam
Vital Signs
Temp Pulse Resp BP Pulse Ox
97.8 F 66 18 115/46 99
06/18/24 07:27 06/18/24 07:27 06/18/24 07:27 06/18/24 07:27 06/18/24 09:19
Lab Results
06/18/24 21:00
06/18/24 06:47
Physical Exam
General: No Apparent Distress and Comfortable
HEENT: Normocephalic, Anicteric and Moist Mucous Membranes
Respiratory: Other (decreased BS on R)
Cardiac: S1/S2 and Regular Rhythm
GI: Soft, Non Tender, Non Distended and Normal Bowel Sounds
Musculoskeletal: No Clubbing, No Cyanosis and Edema (trace of B/L LE)
Skin: Warm and Dry
Neuro: AO x 3
Impression / Plan
-
Primary Washcloth Folder: Dr. Verdin
Assessment:
Presents with weakness, dark stools
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
Recurrent R pleural effusions, transudative resulting in R pleurx catheter placement 06/09/24
History of recovered nonischemic CM
Chronic HFimpEF
Paroxysmal atrial fibrillation
Pulmonary vein isolation 12/2022
repeat AFib/Atach ablation 01/15/24
Medtronic pacemaker 2013, upgraded to BIAS BINDING CUTTER ICD 07/04/2023
CKD, stage 3b
Hypercholesterolemia
Hypertension
Abdominal aortic aneurysm repair 2016
ECHO 05/07/24: EF 56%, mildly enlarged RV size, pacer wire in RV, mild biatrial enlargement, MAC, trace MR, mild to moderate AR, mild TR, mild NM, dilated aortic root, color flow pattern suggestive of small PFO versus ASD
Echo 10/22/2023: EF 35%. Global hypokinesis with inferior akinesis. Mild concentric LVH. Mild to moderate AI.
Echo 04/17/2023: EF 25 to 30%, mild MR, mild AI, mild TR with PAP 32 mmHg
Echo 05/31/22: LVEF 45-50%, mild AI, PASP 35 assuming RA 3
Plan:
-Patient is an 84-year-old male with multiple admissions to [facility] in the last several months for both recurrent right-sided pleural effusions, now with right Pleurx catheter in place as of 06/09/2024, as well as recurrent GI bleeding
events on Eliquis. 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
-Difficult case
-Discussed with GI PRESS ASSISTANT. He is felt to be at elevated risk for rebleeding events
-At this time, with recurrent bleeding on reduced dose Eliquis, discussed with patient that stopping anticoagulation may be necessary to reduce bleeding risk. He has device in place through which we can monitor his rhythm. Currently AV paced by
review of EKG and telemetry. He reports a history of symptomatic atrial arrhythmia, and has not felt that he has been in A-fib for quite some time. [id number] score is 4 with stroke risk estimated at approximately 4.8% per year. HASbled score of 3
with estimated risk of bleed approximately 5.8%. GI is discussing utility of repeat EGD this admission. Patient is unsure he wants to continue with procedures and favors being off OAC at thie time. we discussed his increased CVA risk associated
with this. could consider candidacy for watchman, however at this point does not appear he would be able to tolerate short term OAC needed periprocedure.
-resumed OP toprol 25mg HS. follow on tele while admitted
-pleurx to be drained today
-will follow
-d/w nursing
Data Reviewed
-
EKG: Tracing Personally Visualized and interpreted
Medical Tests (Nuc Med, Echo etc): Report Reviewed by me
Labs: Labs Reviewed by me
Old Records: Reviewed
--- NOTE | 2024-06-18 11:29 | W.PN.HOSP.TC ---
Today's Communication/Plan
-
Monitor vital signs
see plan
Monitor hemoglobin
Monitor for further bleeding
Monitor off Eliquis
IR for Pleurx catheter drainage
Assessment / Plan
Assessment / Plan
General: Comfortable and Conversant
HEENT: NormoCephalic, Anicteric, Moist mucous membranes
Respiratory: Clear and Other (Right sided Pleurx tube in place with 4 x 4 over top); No Wheezes
Cardiac: S1/S2, Regular Rhythm and Other (Pacemaker left upper chest wall)
GI: Soft, Non Tender, Non Distended, Normal Bowel Sounds and
Musculoskeletal: No Edema
Neuro: AO x 3, No Motor Deficits, Nonfocal/grossly intact
Psych: Calm
suspect UPPER GI bleed with recent 05/22/2024 mild gastric antral vascular ectasia with bleeding present in gastric antrum argon plasma was successful
monitor hgb
-Hold Eliquis
Gi consulted
-IV PPI bid
montior H/H
cardiology and I discussed eliquis with patient; he had multiple bleed on AC; would be best to avoid elqiuis for now. Patient is unsure he wants to continue with procedures and favors being off OAC at this time
EGD 05/22/2024
the examined esophagus was normal.
Mild gastric antral vascular ectasia with bleeding was present in the gastric antrum. Coagulation for hemostasis using argon plasma was successful.
Estimated blood loss was minimal.
The examined duodenum was normal.
The examined jejunum was normal.
COLO 05/22/2024
The perianal and digital rectal examinations were normal.
Multiple small-mouthed diverticula were found in the sigmoid colon and descending colon.
Internal hemorrhoids were found during retroflexion. The hemorrhoids were small.
The exam was otherwise without abnormality.
#Allergic skin rash to back from hospital shampoo
Macular scattered rash to back slight scattered approximately 10 areas to front abdomen since using hospital shampoo x 1 month
-Advised patient to stop using daughter will purchase baby shampoo
-Patient given Atarax in ER which stopped the itching I will continue to order
-Apply hydrocortisone to back as needed
#Hypertension
-Hold furosemide
Continue metoprolol succinate 25 mg at bedtime with hold parameters
#CKD, stage 3b
Creat 1.4 baseline appears 1.4-1.5
#Recurrent right pleural effusion secondary to chronic CHF
#Hx pleural cath present right lung
Status post 2000 cc thoracentesis-05/07/2024
Status post 1000 cc clear yellow pleural fluid 05/14/2024
-Consulted interventional radiology for Pleurx catheter drainage every other day
CXR:Tunneled pleural catheter is present projecting over the right lower hemithorax. Interval decrease in size of right pleural effusion. Interval decrease in right mid to lower lung atelectasis.
#History of Recovered nonischemic cardiomyopathy, EF 30-35% April 2023> EF 56% 04/2024
#Chronic HFrEF
I/O, daily weights
-Hold furosemide
Nuclear stress test 12/03/21: Normal perfusion, LVEF 25%, no SWMA, TID 0.93
ECHO 05/07/24: EF 56%, mildly enlarged RV size, pacer wire in RV, mild biatrial enlargement, MAC, trace MR, mild to moderate AR, mild TR, mild GA, dilated aortic root, color flow pattern suggestive of small PFO versus ASD
ECHO 10/22/2023 EF 35%. Global hypokinesis with inferior akinesis. Mild concentric LVH. Mild to moderate AI.
#Paroxysmal atrial fibrillation
HOLD Eliquis due to GI bleed
cardiology following
Pulmonary vein isolation December 2022
repeat AFib/Atach ablation 01/15/24
OAC with eliquis (HOLD due to GI bleed)
#Medtronic pacemaker 2013, upgraded to SIDING STAPLER ICD 07/04/2023
#Hypercholesterolemia
-Hold atorvastatin 20 mg at bedtime
#Abdominal aortic aneurysm repair 2016
DVT prophylaxis
Hold Eliquis
Use SCDs
Full code
Anticipated Discharge: 24 - 48 hours
Subjective/Interval History
-
Date of Service: June 18, 2024
denies pain
Objective Data
-
Labs:
Laboratory Results
06/18/24 06/18/24 06/18/24
06:47 13:00 16:00
WBC 7.4
Hgb 8.3 L Cancelled Pending
Hct 25.9 L Cancelled Pending
Plt Count 152
Sodium 139
Potassium 3.7
Chloride 108 H
Carbon Dioxide 21 L
BUN 28 H
Creatinine 1.4 H
Glucose 98
Calcium 8.3 L
Total Bilirubin 0.7
AST 43
ALT 24
Alkaline Phosphatase 78
06/18/24
21:00
WBC
Hgb Cancelled
Hct Cancelled
Plt Count
Sodium
Potassium
Chloride
Carbon Dioxide
BUN
Creatinine
Glucose
Calcium
Total Bilirubin
AST
ALT
Alkaline Phosphatase
Vital Signs:
Vital Signs
Temp Pulse Resp BP Pulse Ox
97.8 F 66 18 115/46 99
06/18/24 07:27 06/18/24 07:27 06/18/24 07:27 06/18/24 07:27 06/18/24 09:19
I&O
06/17/24 06/18/24 06/19/24
06:59 06:59 06:59
Intake Total 240 / 240
Output Total 200 / 200
Balance 40 / 40
--- NOTE | 2024-06-18 11:32 | CM ---
Pt seen bedside, initial assessment completed. Patient is a 84-year-old male complaining of lightheadedness with activity, black stools for the past 3 days.
Patient reports that he lives alone in a 1st floor apartment- 7 steps to get to his apartment. Patient is independent w/ ambulating, no AD required, patient has an shower chair in the bathroom. Patient stated he has a RW that was his late 's and
a WC given by a friend that he does not need but both DMEs are as needed. Patient confirms that he is independent w/ ADLs.
Patient denies SNF hx, engaged in OP therapy at for 3 months prev. Patient is current w/ [facility]. [facility] referral placed in [facility].
Address, points of contact and insurance verified
PCP: Santino Lopez
Pharmacy: [facility]
PT/OT evals ordered. Will await any recommendations.
Plan: Anticipate home. MAGNOLIA w/ [facility]
CM will cont to follow for d/c needs
[2024-06-18] MEDS: LASIX 60 MG PO (12:31)
--- NOTE | 2024-06-18 15:41 | W.PN.UPDATE ---
Update Note
Progress Note Update
called and discussed with patient's daughter Samina via telephone for 15:40. She discussed she has seen significant decline in her father since his initial admission in 04/2024. She is agreeable to plan outlined in cardiology note today to stop OAC
at this point and can continue to reevaluate as OP. She is understandably concerned about the consistent amount of fluid being drained from her father's pleurx catheter since its insertion and that he is not getting significant relief of SOB since
placement. He is sick of being hospitalized. We discussed options of palliative care and hospice, which daughter is agreeable to hearing more about. She states they were scheduled to see palliative care tomorrow morning as OP which will need to be
cancelled. She would like to focus on his quality of life and comfort at this time. Will consult CM.
--- NOTE | 2024-06-18 16:13 | PTCARENOTE ---
Pt AAO x3, STEPHENS well, OOB to BR; ambulatory in tariq with PT; pt sl unsteady with ambulation; denies weakness/dizziness. VSS. Telemetry:AV/V paced rhythm. On room air- pulse ox 100%, no SOB noted. Rt pleurex catheter intact. Abd soft, fay PO well.
Voiding in BR; pt instructed to void in urinal to monitor output. Resting in bed at present, no c/o. Will continue to monitor.
[2024-06-18 16:40] LABS: Hematocrit 27.1 % (39.0-52.0); Hemoglobin 8.6 g/dL (13.0-18.0)
[2024-06-18] MEDS: MELATONIN 10 MG PO (21:19)
[2024-06-18] MEDS: TOPROL XL 25 MG PO (21:20)
[2024-06-19 03:09] VITALS: BP 107/49
[2024-06-19 06:00] VITALS: BMI 23.8
[2024-06-19 07:40] VITALS: BP 103/49
[2024-06-19 08:05] LABS: % Basophils 0.9 % (0-2); % Eosinophils 1.9 % (0-6); % Immature Granulocytes 0.3 % (0-0.5); % Lymphocytes 24.5 % (20.5-51.1); % Monocytes 9.1 % (1.7-9.3); % Neutrophils 63.3 % (42.2-75.2); Absolute Basophils 0.1 10^3/uL (0-0.2); Absolute Eosinophils 0.1 10^3/uL (0-0.7); Absolute Lymphocytes 1.7 10^3/uL (1.2-3.4); Absolute Monocytes 0.6 10^3/uL (0.1-0.6); Absolute Neutrophils 4.4 10^3/uL (1.4-6.5); Hemoglobin 7.8 g/dL (13.0-18.0); Mean Corp Hgb Conc. 31.2 g/dL (33.0-37.0); Mean Corpuscular Hgb 28.4 pg (27.0-31.0); Mean Corpuscular Volume 90.9 fL (80.0-94.0); Mean Platelet Volume 10.6 fL (7.4-10.4); Nucleated Red Blood Cells % 0 % (-); Platelet Count 145 10^3/uL (130-400); Red Blood Cell Count 2.75 10^6/uL (4.70-6.10); White Blood Cell Count 6.9 10^3/uL (4.8-10.8)
--- NOTE | 2024-06-19 08:49 | W.PN.GI.CBS2 ---
Addendum entered and electronically signed by Douglas John MD 06/19/24 13:58:
I saw and examined the patient.
The INSURANCE JOB TITLES or PA's note was reviewed and I agree with the note.
Comment: Had more brown BM this am. No complaints
ABD soft NT
REC:
Pt met with palliative care team
Does not wish procedures at this time and no overt bleeding
Has appt with Dr Elias next week to review plan
Will sign off. Please call back if needed
Original Note:
Today's Communication / Plan
-
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
some drop in hgb to 7.8 this am but last stool 06/18-- no transfusions required
cont to trend
pt and family decline further IP procedures
for palliative care consult
cont PPI BID-- transition to PO
resume OP iron on discharge
appreciate cards input to remain off anticoagulation
cont 2 gram Na diet
Pt is scheduled GI follow up 06/24with Dr. Elias which he wishes to keep appt for now
reviewed and updated daughter and Dr. Lundberg this am
will sign off call if any signs of aggressive GI bleeding, question or problems
Assessment / Plan
-
83-year-old male with past medical history of nonischemic cardiomyopathy, heart failure with reduced ejection fraction (30 to 35% with repeat 05/07 56%), paroxysmal A-fib, prior PVI ablation, chronic kidney disease, hyperlipidemia, abdominal aortic
aneurysm status postrepair, prior ETOH use, AICD with several recent admissions. In review of records multiple recent admission. 05/07 with noted right pleural effusion with thoracentesis with now Pleux cath in place since May. Pt was on
Eliquis 2.5 mg daily and increased to 5mg BID. He was then admitted 05/12 til 05/14 with GI bleeding. He completed EGD with Dr. Elias with noted erythema, granular, mild nodular and petechial mucosa in antrum and prepyloric region of stomach.
Otherwise normal without ulcers, lesion, AVM or old/fresh blood. During that admission Eliquis was changed back to 2.5mg BID. He returned 05/20 til 05/22 with shortness of breath with drop in hgg 11 to 8.7 with heme + dark stools. He repeated EGD
with concern for GAVE with APC treatment and colonoscopy with diverticulosis and hemorrhoids. He was advised to hold anticoagulation for 1 week then resumed at lower dose. He now return with lightheadedness and black stools. HBG on discharge 05/22
was 9.1 and drop to 7.7 after admission with BUN up to 31. No transfusions required since onset of bleeding.
Laboratory Tests
06/18/24 06/18/24 06/19/24
06:47 16:17 07:36
Hgb 8.3 L 8.6 L 7.8 L
-recurrent admission with dark heme + stool
-anemia secondary to blood loss with slow GI bleed.
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
-anemia with drop in hbg after admission
-pleural effusion with prior thoracentesis/pleux cath in place
-afib on Eliquis prior to admission
other med problems:
-non ischemic CM
-HFrEF recent EF improved on Echo
-PVI/ablation
-CKD
-hyperlipidemia
-AAA with repair
-prior ETOH use
-AICD /pacer
PLAN:
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
some drop in hgb to 7.8 this am but last stool 06/18-- no transfusions required
cont to trend
pt and family decline further IP procedures
for palliative care consult
cont PPI BID-- transition to PO
resume OP iron on discharge
appreciate cards input to remain off anticoagulation
cont 2 gram Na diet
Pt is scheduled GI follow up 06/24with Dr. Elias which he wishes to keep appt for now
reviewed and updated daughter and Dr. Lundberg this am
will sign off call if any signs of aggressive GI bleeding, question or problems
Subjective
Subjective
Date of Service: June 19, 2024
dark brown stool 3/5- no stools overnight on 2 gram na diet
Objective
Data Reviewed
Laboratory Data:
Laboratory Results
06/19/24 07:36
Laboratory Results
PT 14.4 Sec (11.4-14.6) 06/17/24 13:17
INR 1.09 06/17/24 13:17
APTT 36.1 Sec (23.4-35.0) H 06/17/24 13:17
Total Bilirubin 0.7 mg/dl (0.2-1.3) 06/18/24 06:47
AST 43 U/L (17-59) 06/18/24 06:47
ALT 24 U/L (0-50) 06/18/24 06:47
Alkaline Phosphatase 78 U/L (38-126) 06/18/24 06:47
Vital Signs and I&O:
Vital Signs
Temp Pulse Resp BP Pulse Ox
97.8 F 61 16 103/49 97
06/19/24 07:40 06/19/24 07:40 06/19/24 07:40 06/19/24 07:40 06/19/24 07:40
I&O
06/18/24 06/19/24 06/20/24
06:59 06:59 06:59
Intake Total 240 / 240 1440 / 1440
Output Total 200 / 200 500 / 500
Balance 40 / 40 940 / 940
Physical Exam
Physical Exam
HEENT: Anicteric and Moist mucous membranes
Cardiology: Normal Sinus Rhythm
Pulmonary: Other (decreased right base )
GI: Soft, Non Distended and Non Tender
Extremities: No Edema
Neuro: Non Focal
[2024-06-19 08:59] LABS: ALT (SGPT) 24 U/L (0-50); AST (SGOT) 44 U/L (17-59); Albumin 2.3 g/dl (3.5-5.0); Alkaline Phosphatase 73 U/L (38-126); Blood Urea Nitrogen 26 mg/dl (9-20); Calcium 8.1 mg/dl (8.4-10.2); Carbon Dioxide 23 mmol/L (22-30); Chloride 108 mmol/L (98-107); Estimated Creatinine Clearance 45 ml/min; Glucose 94 mg/dl (70-99); Potassium 3.7 mmol/L (3.5-5.1); Sodium 134 mmol/L (135-145); Total Bilirubin 0.7 mg/dl (0.2-1.3); Total Protein 5.9 g/dl (6.3-8.2); eGFR 50.18
[2024-06-19] MEDS: HYDROCORTISONE 2.5% CREAM 1 APPLIC TOPICAL ×2 (09:15→20:12)
[2024-06-19] MEDS: PROTONIX IV 40 MG IV (09:16)
[2024-06-19] MEDS: LASIX 40 MG PO (09:16)
[2024-06-19] MEDS: NSS (PRESERVATIVE FREE) 10 ML IV (09:17)
[2024-06-19] MEDS: FLUSH (NSS) 1 FLUSH IV (09:17)
--- NOTE | 2024-06-19 11:07 | PN.CDI ---
CDI
- -
CDI:
Physician Documentation Request
Admit Date: 06/17/24 18:13
Dear Doctor Toño,
Clinical Indicators:
Home medications include: Apixaban 2.5 mg PO BID
06/18 GI consult, '...remains hemodynamically stable while holding his anticoagulation. However, if this is to be restarted I feel that he will most likely rebleed in the future.'
06/18 PN, 'suspect UPPER GI bleed with recent 05/22/2024 mild gastric antral vascular ectasia with bleeding present in gastric antrum...he had multiple bleed on AC; would be best to avoid Eliquis for now'
Please clarify the likely relationship between the GI bleeding and Eliquis use:
Yes, GI bleeding is related to/associated with/due to Eliquis.
No, GI bleeding is not related to/associated with/due to Eliquis but it is due to vascular ectasia only.
Unable to determine
Use of terms such as suspected, likely, concern for, or probable (associated with a specific diagnosis that is being evaluated, monitored, or treated as if it exists) are acceptable and can be coded in the inpatient setting, when documented at the
time of discharge.
Thank you,
Nola Hua RN BSN
CDI Specialist
available via tiger text
Please use your independent medical judgment in providing your response.
[2024-06-19 11:10] VITALS: BP 118/55
--- NOTE | 2024-06-19 11:13 | PN.CDI ---
CDI
- -
CDI:
Physician Documentation Request
Admit Date: 06/17/24 18:13
Dear Doctor Toño,
Clinical Indicators:
Patient admitted with suspected Upper GI bleed; PMH includes CKD 3b.
Home medications include: Ferrous sulfate 325 mg PO DAILY
06/17 Update note, 'Associated ACBLA'
06/18 GI consult, 'anemia secondary to blood loss with slow GI bleed.'
Hgb/Hct trend:
06/17/24 06/17/24 06/18/24
13:17 21:30 16:17
Hgb 8.6 L 7.7 L 8.6 L
Hct 27.5 L 24.6 L 27.1 L
Based on the above, could you clarify, in your progress note, which of the following is the most likely type of anemia you are evaluating, monitoring and/or treating?
Acute blood loss anemia with baseline chronic anemia (please specify type)
Acute blood loss anemia only
Anemia of chronic disease - indicate if CKD or other
Chronic iron deficiency anemia due to blood loss
Other, please specify
Use of terms such as suspected, likely, concern for, or probable (associated with a specific diagnosis that is being evaluated, monitored, or treated as if it exists) are acceptable and can be coded in the inpatient setting, when documented at the
time of discharge.
Thank you,
Nola Hua RN BSN
CDI Specialist
available via tiger text
Please use your independent medical judgment in providing your response.
--- NOTE | 2024-06-19 11:33 | W.PN.HOSP.TC ---
Today's Communication/Plan
-
monitor vitals
see plan
monitor hgb later today
palliative care
discussed with daughter over the phone
Assessment / Plan
Assessment / Plan
General: Comfortable and Conversant
HEENT: NormoCephalic, Anicteric, Moist mucous membranes
Respiratory: Clear and Other (Right sided Pleurx tube in place with 4 x 4 over top); No Wheezes
Cardiac: S1/S2, Regular Rhythm and Other (Pacemaker left upper chest wall)
GI: Soft, Non Tender, Non Distended, Normal Bowel Sounds and
Musculoskeletal: No Edema
Neuro: AO x 3, No Motor Deficits, Nonfocal/grossly intact
Psych: Calm
suspect UPPER GI bleed
GI bleeding is likely exacerbated by Eliquis
Acute blood loss anemia on chronic anemia
recent 05/22/2024 mild gastric antral vascular ectasia with bleeding present in gastric antrum argon plasma was successful
monitor hgb
-Hold Eliquis; not planning to continue on DC for now
Gi following; patient not interested in scope at this time
hgb did drift down a bit; continue to monitor. repeat later today. discussed with daughter
cw PPI
monitor H/H
cardiology and I discussed eliquis with patient; he had multiple bleed on AC; would be best to avoid elqiuis for now. Patient is unsure he wants to continue with procedures and favors being off OAC at this time
family and patient requested to speak to palliative; seen by palliative, will f/u with them outpatient
EGD 05/22/2024
the examined esophagus was normal.
Mild gastric antral vascular ectasia with bleeding was present in the gastric antrum. Coagulation for hemostasis using argon plasma was successful.
Estimated blood loss was minimal.
The examined duodenum was normal.
The examined jejunum was normal.
COLO 05/22/2024
The perianal and digital rectal examinations were normal.
Multiple small-mouthed diverticula were found in the sigmoid colon and descending colon.
Internal hemorrhoids were found during retroflexion. The hemorrhoids were small.
The exam was otherwise without abnormality.
#Allergic skin rash to back from hospital shampoo
Macular scattered rash to back slight scattered approximately 10 areas to front abdomen since using hospital shampoo x 1 month
-Advised patient to stop using daughter will purchase baby shampoo
-Patient given Atarax in ER which stopped the itching I will continue to order
-Apply hydrocortisone to back as needed
Hyponatremia
monitor
#Hypertension
-furosemide restarted
Continue metoprolol succinate 25 mg at bedtime with hold parameters
#CKD, stage 3b
Creat 1.4 baseline appears 1.4-1.5
#Recurrent right pleural effusion secondary to chronic CHF
#Hx pleural cath present right lung
Status post 2000 cc thoracentesis-05/07/2024
Status post 1000 cc clear yellow pleural fluid 05/14/2024
-Consulted interventional radiology for Pleurx catheter drainage every other day
CXR:Tunneled pleural catheter is present projecting over the right lower hemithorax. Interval decrease in size of right pleural effusion. Interval decrease in right mid to lower lung atelectasis.
#History of Recovered nonischemic cardiomyopathy, EF 30-35% April 2023> EF 56% 04/2024
#Chronic HFrEF
I/O, daily weights
furosemide
Nuclear stress test 12/03/21: Normal perfusion, LVEF 25%, no SWMA, TID 0.93
ECHO 05/07/24: EF 56%, mildly enlarged RV size, pacer wire in RV, mild biatrial enlargement, MAC, trace MR, mild to moderate AR, mild TR, mild NH, dilated aortic root, color flow pattern suggestive of small PFO versus ASD
ECHO 10/22/2023 EF 35%. Global hypokinesis with inferior akinesis. Mild concentric LVH. Mild to moderate AI.
#Paroxysmal atrial fibrillation
HOLD Eliquis due to GI bleed
cardiology following
Pulmonary vein isolation December 2022
repeat AFib/Atach ablation 01/15/24
OAC with eliquis (HOLD due to GI bleed)
#Medtronic pacemaker 2013, upgraded to CASH SURRENDER CALCULATOR ICD 07/04/2023
#Hypercholesterolemia
- atorvastatin 20 mg at bedtime
#Abdominal aortic aneurysm repair 2016
DVT prophylaxis
Hold Eliquis
Use SCDs
Full code
Anticipated Discharge: Within 24 hours
Subjective/Interval History
-
Date of Service: June 19, 2024
denies pain
Objective Data
-
Labs:
Laboratory Results
06/19/24 06/19/24
07:36 17:00
WBC 6.9
Hgb 7.8 L Pending
Hct 25.0 L Pending
Plt Count 145
Sodium 134 L
Potassium 3.7
Chloride 108 H
Carbon Dioxide 23
BUN 26 H
Creatinine 1.4 H
Glucose 94
Calcium 8.1 L
Total Bilirubin 0.7
AST 44
ALT 24
Alkaline Phosphatase 73
Vital Signs:
Vital Signs
Temp Pulse Resp BP Pulse Ox
97.7 F 63 16 118/55 100
06/19/24 11:10 06/19/24 11:10 06/19/24 11:10 06/19/24 11:10 06/19/24 11:10
I&O
06/18/24 06/19/24 06/20/24
06:59 06:59 06:59
Intake Total 240 / 240 1440 / 1440
Output Total 200 / 200 500 / 500
Balance 40 / 40 940 / 940
--- NOTE | 2024-06-19 11:42 | W.CON.PAL ---
Consultation
-
Date/Time Consultation Requested: 06/18
Date/Time Consultation Performed: 06/19
Requesting Provider: Toño
Performing Provider: Tabatha LINK
Reason for Consult: Goals of Care Discussion
Primary Diagnosis: end stage NICM, GIB
Reason for Admission
Illness Course/HPI
84 year old M with PMH of NICM EF 35% c/b recurrent R pleural effusions now s/p pleurex catheter placement, AICD, afib on eliquis c/b recurrent GIBs. Multiple admissions in the last couple months for GIBs. S/p EGD last admission with +GAVE, likely
cause of his recurrent GIBs. Admitted again with concern for bleed, drop in hgb. GI following - recommending further procedures which patient declines at this time. Cardiology following - rec stopping AC as risk outweighs benefit.
Was supposed to be seen in outpatient palliative clinic today but hospitalized.
Seen at bedside with daughter Samina present. Discussed next steps in care including palliative vs hospice. Explained differences. Patient not interested in further procedures, is not a fan of the hospital but hoping that stopping AC will decrease
his hospitalizations. Wants to continue seeing his specialists. Right now he is still independent with ADLs, iADLs. Lives alone, still driving. States as long as he has QOL within reason, he would want to continue with current treatment plan and see
how things go.
Currently with pleurX catheter which is being drained by VN every other day. Discussed can follow with us as outpatient and if needed, can refer to hospice in the future if further decline. Patient and daughter agreeable.
Goals of Care Discussion
-
Individuals Present for Discussion & Relationship to Patient:
see HPI
Pain & Symptom Assessment
[place] Symptom Scale 0=none, 10=worst
Pain: 0
Shortness of Breath: 3
Objective Data
-
Objective Data:
Vital Signs
Temp Pulse Resp BP Pulse Ox
97.7 F 63 16 118/55 100
06/19/24 11:10 06/19/24 11:10 06/19/24 11:10 06/19/24 11:10 06/19/24 11:10
Laboratory Results
06/19/24 07:36
PT 14.4 Sec (11.4-14.6) 06/17/24 13:17
INR 1.09 06/17/24 13:17
APTT 36.1 Sec (23.4-35.0) H 06/17/24 13:17
Total Protein 5.9 g/dl (6.3-8.2) L 06/19/24 07:36
Albumin 2.3 g/dl (3.5-5.0) L 06/19/24 07:36
Palliative Performance Scale
Palliative Performance Scale:
PPS Level Ambulation Activity & Evidence of Disease Self Care Intake Conscious Level
100% Full Normal Activity & Work; Full Intake Full
No Evidence of Disease
90% Full Normal Activity & Work; Full Normal Full
Some Evidence of Disease
80% Full Normal Activity with Effort Full Normal or Full
Some Evidence of Disease Reduced
70% Reduced Unable Normal Job/Work Full Normal or Full
Significant Disease Reduced
60% Reduced Unable Hobby/Housework Occasional Normal or Full or Confusion
Significant Disease Assistance Reduced
50% Mainly Sit/Lie Unable to do Any Work Considerable Normal or Full or Confusion
Extensive Disease Assistance Req'd Reduced
40% Mainly in Bed Unable to do Most Activity Mainly Assistance Normal or Full or Drowsy;
Extensive Disease Reduced +/- Confusion
30% Totally Bed Unable to do Any Activity Total Care Normal or Full or Drowsy;
Bound Extensive Disease Reduced +/- Confusion
20% Totally Bed Bound Unable to do Any Activity Total Care Minimal to Full or Drowsy;
Extensive Disease Sips +/- Confusion
10% Totally Bed Bound Unable to do Any Activity Total Care Mouth Care Drowsy or Coma;
Extensive Disease Only +/- Confusion
0%
PPS Score Level:
Palliative Performance Score Response
Palliative Performance Score Response: 60%
Physical Exam
-
General: Appears Chronically Ill
HEENT: Normocephalic
Respiratory: Other (crackles R base )
Cardiac: Regular Rhythm
Peripheral Vascular: No Edema
GI: Soft and Normal Bowel Sounds
Musculoskeletal: Normal Gait & Station
Skin: Warm
Neuro: AO x 3
Psych: Calm
Assessment / Plan
-
Assessment/Plan:
84 year old M with end stage NICM c/b recurrent R pleural effusions s/p drain placement, multiple admissions for GIB 2/2 AC now stopped.
- see HPI for conversation with patient and daughter
- plan to follow palliative outpatient and monitor progress over coming weeks/months and refer to hospice as needed
- with insomnia - recommend starting trazodone 25mg nightly
- will call to schedule follow up once discharged
Care Reviewed
Data Reviewed
Echocardiogram: Image Reviewed
Radiology procedure: Image Reviewed
Medical Tests: I reviewed
Reviewed with: Patient, Family and Physician
[2024-06-19 12:35] VITALS: BMI 23.8
--- NOTE | 2024-06-19 12:59 | W.PN.CARDCBS ---
Addendum entered and electronically signed by Kari Gonzales DO 06/20/24 12:07:
Follow-up screening abdominal aortic ultrasound with history of endovascular repair of AAA: No evidence of endoleak. Residual aneurysmal sac measures 4.8 cm (AP) x 4.3 cm (transverse). Slightly decreased in size compared to prior study (4.9 x 4.8
cm).
Addendum entered and electronically signed by Kari Gonzales DO 06/19/24 17:18:
I saw and examined the patient.
The [employer] Operator's note was reviewed and I agree with the note.
Comment: Patient seen and examined with daughter at bedside. Chart/telemetry reviewed. Patient denies chest pain or pressure, dizziness or palpitations. No abdominal pain. No obvious bleeding. Patient states he is planned a surveillance
abdominal ultrasound for his AAA and was wondering if it could be done as an inpatient prior to discharge.
GEN: No distress, awake, alert, oriented x3
HEENT: mmm
LUNGS: Decreased BS RLB, no wheezes
CV: Reg, S1/S2, no murmur
ABD: soft, BS+, NT/ND
EXT: no edema
Plan:
-Patient is an 84-year-old male with multiple admissions to [facility] in the last several months for both recurrent right-sided pleural effusions, now with right Pleurx catheter in place as of 06/09/2024, as well as recurrent GI bleeding
events on Eliquis. 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
-after zohaib discussion with patient's daughter Samina yesterday via telephone as well as with patient, Samina, and palliative care AUTOMATIC MOLD SANDER today, plan to stop Eliquis indefinitely.
-He does have a device in place through which we can monitor his rhythm. He is felt to be elevated risk for rebleeding events. He does not want to proceed with any procedures at this time.
-Plan for palliative care upon discharge
-follow hgb off eliquis, 7.8 on 06/19
-Continue Pleurx drainage as previously specified in addition to outpatient Lasix dose. Creatinine stable at 1.4
-Continue Toprol 25 mg nightly
-Will arrange for surveillance abdominal aortic ultrasound prior to discharge.
-Will arrange outpatient cardiac follow-up
-Will sign off, recall if needed
Original Note:
Today's Communication / Plan
-
eliquis discontinued indefinitely
follow hgb off eliquis
continue lasix
continue pleurx drainage as previously outlined
palliative care
will arrange OP cardiac follow up
Impression / Plan
-
Primary Tool Room Lathe Operator: Dr. Verdin
Assessment:
Presents with weakness, dark stools
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
Recurrent R pleural effusions, transudative resulting in R pleurx catheter placement 06/09/24
History of recovered nonischemic CM
Chronic HFimpEF
Paroxysmal atrial fibrillation
Pulmonary vein isolation 12/2022
repeat AFib/Atach ablation 01/15/24
Medtronic pacemaker 2013, upgraded to HAND BRUSH FILLER ICD 07/04/2023
CKD, stage 3b
Hypercholesterolemia
Hypertension
Abdominal aortic aneurysm repair 2016
ECHO 05/07/24: EF 56%, mildly enlarged RV size, pacer wire in RV, mild biatrial enlargement, MAC, trace MR, mild to moderate AR, mild TR, mild VT, dilated aortic root, color flow pattern suggestive of small PFO versus ASD
Echo 10/22/2023: EF 35%. Global hypokinesis with inferior akinesis. Mild concentric LVH. Mild to moderate AI.
Echo 04/17/2023: EF 25 to 30%, mild MR, mild AI, mild TR with PAP 32 mmHg
Echo 05/31/22: LVEF 45-50%, mild AI, PASP 35 assuming RA 3
Plan:
-Patient is an 84-year-old male with multiple admissions to [facility] in the last several months for both recurrent right-sided pleural effusions, now with right Pleurx catheter in place as of 06/09/2024, as well as recurrent GI bleeding
events on Eliquis. 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
-after zohaib discussion with patient's daughter Samina yesterday via telephone as well as with patient, Samina, and palliative care AUTOMATIC MOLD SANDER today, plan to stop Eliquis indefinitely. He does have a device in place through which we can monitor his
rhythm. He is felt to be elevated risk for rebleeding events. He does not want to proceed with any procedures at this time. Plan for palliative care upon discharge
-follow hgb off eliquis, 7.8 on 06/19
-Continue Pleurx drainage as previously specified in addition to outpatient Lasix dose. Creatinine stable at 1.4
-Continue Toprol 25 mg nightly
-Will arrange outpatient cardiac follow-up
Progress Note - Tool Room Lathe Operator
Subjective
Date of Service: June 19, 2024
Reports some continued shortness of breath with exertion
Objective
Labs:
06/19/24 07:36
Labs
Hgb 7.8 g/dL (13.0-18.0) L 06/19/24 07:36
Hct 25.0 % (39.0-52.0) L 06/19/24 07:36
Plt Count 145 10^3/uL (130-400) 06/19/24 07:36
PT 14.4 Sec (11.4-14.6) 06/17/24 13:17
INR 1.09 06/17/24 13:17
APTT 36.1 Sec (23.4-35.0) H 06/17/24 13:17
Sodium 134 mmol/L (135-145) L 06/19/24 07:36
Potassium 3.7 mmol/L (3.5-5.1) 06/19/24 07:36
BUN 26 mg/dl (9-20) H 06/19/24 07:36
Creatinine 1.4 mg/dL (0.7-1.3) H 06/19/24 07:36
Glucose 94 mg/dl (70-99) 06/19/24 07:36
Vital Signs and I&O:
Vital Signs
Temp Pulse Resp BP Pulse Ox
97.7 F 63 16 118/55 100
06/19/24 11:10 06/19/24 11:10 06/19/24 11:10 06/19/24 11:10 06/19/24 11:10
Vital Signs
Temp Pulse Resp BP Pulse Ox
97.7 F 63 16 118/55 100
06/19/24 11:10 06/19/24 11:10 06/19/24 11:10 06/19/24 11:10 06/19/24 11:10
Intake & Output
06/17/24 06/18/24 06/19/24 06/20/24
07:59 07:59 07:59 07:59
Intake Total 240 / 240 1440 / 1440
Output Total 200 / 200 500 / 500
Balance 40 / 40 940 / 940
Physical Exam
Physical Exam
GEN: No distress, awake, alert, oriented x3
HEENT: supple, anicteric, mmm, eomi
LUNGS: Decreased BS RLB, no wheezes
CV: Reg, S1/S2, no murmur
ABD: soft, BS+, NT/ND
EXT: No cyanosis, clubbing, edema
NEURO: Gross non-focal
SKIN: Warm, pink, dry. No rash
[2024-06-19 15:40] VITALS: BP 127/50
--- NOTE | 2024-06-19 17:20 | PTCARENOTE ---
Pt AAO x3, STEPHENS well. OOB in room/to BR; ambulates in tariq with minimal assistance; denies weakness/dizziness. VSS. Telemetry:AV/V paced rhythm; occ PVC's. On room air- pulse ox 98%, no SOB noted. RT chest Pleurex catheter in place; dsg D/I. Abd
soft, rounded fay P well, pt reports (+) BM today- 'no bleeding'. Voids clear yellow urine in BR; also void in urinal at times. Pt aware of NPO past midnight for abd US on 06/20. Resting comfortably at present. Will continue to monitor.
[2024-06-19 17:58] LABS: Hematocrit 28.9 % (39.0-52.0); Hemoglobin 9.1 g/dL (13.0-18.0)
[2024-06-19 19:17] VITALS: BP 109/80
[2024-06-19] MEDS: PROTONIX 40 MG PO (20:12)
[2024-06-19] MEDS: LIPITOR 20 MG PO (21:06)
[2024-06-19] MEDS: TOPROL XL 25 MG PO (21:06)
[2024-06-19] MEDS: MELATONIN 10 MG PO (21:06)
[2024-06-19 23:37] VITALS: BP 108/51
[2024-06-20 03:55] VITALS: BP 115/54
[2024-06-20 06:00] VITALS: BMI 23.8
[2024-06-20 07:10] LABS: % Basophils 0.9 % (0-2); % Eosinophils 2.4 % (0-6); % Immature Granulocytes 0.3 % (0-0.5); % Lymphocytes 19.6 % (20.5-51.1); % Monocytes 8.5 % (1.7-9.3); % Neutrophils 68.3 % (42.2-75.2); Absolute Basophils 0.1 10^3/uL (0-0.2); Absolute Eosinophils 0.2 10^3/uL (0-0.7); Absolute Lymphocytes 1.5 10^3/uL (1.2-3.4); Absolute Monocytes 0.7 10^3/uL (0.1-0.6); Absolute Neutrophils 5.4 10^3/uL (1.4-6.5); Hematocrit 25.4 % (39.0-52.0); Hemoglobin 8.1 g/dL (13.0-18.0); Mean Corp Hgb Conc. 31.9 g/dL (33.0-37.0); Mean Corpuscular Hgb 28.7 pg (27.0-31.0); Mean Corpuscular Volume 90.1 fL (80.0-94.0); Mean Platelet Volume 10.5 fL (7.4-10.4); Nucleated Red Blood Cells % 0 % (-); Platelet Count 140 10^3/uL (130-400); Red Blood Cell Count 2.82 10^6/uL (4.70-6.10); Red Cell Dist. Width 17.6 % (11.5-14.5); White Blood Cell Count 7.8 10^3/uL (4.8-10.8)
[2024-06-20 07:35] LABS: ALT (SGPT) 23 U/L (0-50); AST (SGOT) 41 U/L (17-59); Albumin 2.5 g/dl (3.5-5.0); Alkaline Phosphatase 75 U/L (38-126); Blood Urea Nitrogen 26 mg/dl (9-20); Calcium 8.2 mg/dl (8.4-10.2); Carbon Dioxide 23 mmol/L (22-30); Chloride 107 mmol/L (98-107); Estimated Creatinine Clearance 48 ml/min; Glucose 97 mg/dl (70-99); Potassium 3.7 mmol/L (3.5-5.1); Sodium 138 mmol/L (135-145); Total Bilirubin 0.7 mg/dl (0.2-1.3); Total Protein 6.1 g/dl (6.3-8.2); eGFR 54.85
[2024-06-20 07:40] VITALS: BP 116/55
[2024-06-20] MEDS: LASIX 60 MG PO (08:36)
[2024-06-20] MEDS: PROTONIX 40 MG PO (08:36)
[2024-06-20] MEDS: HYDROCORTISONE 2.5% CREAM 1 APPLIC TOPICAL (08:36)
[2024-06-20 10:18] VITALS: BP 112/62; PULSE 80; O2SAT 100
--- NOTE | 2024-06-20 10:34 | W.PN.HOSP.TC ---
Today's Communication/Plan
-
Monitor vital signs see plan
pleuryx drainage today
Discussed with daughter over the phone, discharge today after Pleurx drainage
Now off Eliquis
Time of discharge 38 minutes
Assessment / Plan
Assessment / Plan
General: Comfortable and Conversant
HEENT: NormoCephalic, Anicteric, Moist mucous membranes
Respiratory: Clear and Other (Right sided Pleurx tube in place with 4 x 4 over top); No Wheezes
Cardiac: S1/S2, Regular Rhythm and Other (Pacemaker left upper chest wall)
GI: Soft, Non Tender, Non Distended, Normal Bowel Sounds and
Musculoskeletal: No Edema
Neuro: AO x 3, No Motor Deficits, Nonfocal/grossly intact
Psych: Calm
suspect UPPER GI bleed
GI bleeding is likely exacerbated by Eliquis
Acute blood loss anemia on chronic anemia
recent 05/22/2024 mild gastric antral vascular ectasia with bleeding present in gastric antrum argon plasma was successful
monitor hgb
-Hold Eliquis; not planning to continue on DC for now
Gi following; patient not interested in scope at this time
Hemoglobin now 8.1, no further bleeding. Discharge home
cw PPI
monitor H/H
cardiology and I discussed eliquis with patient; he had multiple bleed on AC; would be best to avoid elqiuis for now. Patient is unsure he wants to continue with procedures and favors being off OAC at this time
family and patient requested to speak to palliative; seen by palliative, will f/u with them outpatient
EGD 05/22/2024
the examined esophagus was normal.
Mild gastric antral vascular ectasia with bleeding was present in the gastric antrum. Coagulation for hemostasis using argon plasma was successful.
Estimated blood loss was minimal.
The examined duodenum was normal.
The examined jejunum was normal.
COLO 05/22/2024
The perianal and digital rectal examinations were normal.
Multiple small-mouthed diverticula were found in the sigmoid colon and descending colon.
Internal hemorrhoids were found during retroflexion. The hemorrhoids were small.
The exam was otherwise without abnormality.
#Allergic skin rash to back from hospital shampoo
Macular scattered rash to back slight scattered approximately 10 areas to front abdomen since using hospital shampoo x 1 month
-Advised patient to stop using daughter will purchase baby shampoo
-Patient given Atarax in ER which stopped the itching I will continue to order
-Apply hydrocortisone to back as needed
Hyponatremia
monitor
#Hypertension
-furosemide restarted
Continue metoprolol succinate 25 mg at bedtime with hold parameters
#CKD, stage 3b
Creat 1.4 baseline appears 1.4-1.5
#Recurrent right pleural effusion secondary to chronic CHF
#Hx pleural cath present right lung
Status post 2000 cc thoracentesis-05/07/2024
Status post 1000 cc clear yellow pleural fluid 05/14/2024
-Consulted interventional radiology for Pleurx catheter drainage every other day
CXR:Tunneled pleural catheter is present projecting over the right lower hemithorax. Interval decrease in size of right pleural effusion. Interval decrease in right mid to lower lung atelectasis.
#History of Recovered nonischemic cardiomyopathy, EF 30-35% April 2023> EF 56% 04/2024
#Chronic HFrEF
I/O, daily weights
furosemide
Nuclear stress test 12/03/21: Normal perfusion, LVEF 25%, no SWMA, TID 0.93
ECHO 05/07/24: EF 56%, mildly enlarged RV size, pacer wire in RV, mild biatrial enlargement, MAC, trace MR, mild to moderate AR, mild TR, mild NM, dilated aortic root, color flow pattern suggestive of small PFO versus ASD
ECHO 10/22/2023 EF 35%. Global hypokinesis with inferior akinesis. Mild concentric LVH. Mild to moderate AI.
#Paroxysmal atrial fibrillation
HOLD Eliquis due to GI bleed
cardiology following
Pulmonary vein isolation December 2022
repeat AFib/Atach ablation 01/15/24
OAC with eliquis (HOLD due to GI bleed)
#Medtronic pacemaker 2013, upgraded to CAMPAIGN DIRECTOR ICD 07/04/2023
#Hypercholesterolemia
- atorvastatin 20 mg at bedtime
#Abdominal aortic aneurysm repair 2016
Routine ultrasound ordered by cardiology
DVT prophylaxis
Hold Eliquis
Use SCDs
Full code
Anticipated Discharge: Today
Subjective/Interval History
-
Date of Service: June 20, 2024
Denies pain
Objective Data
-
Labs:
Laboratory Results
06/20/24
06:54
WBC 7.8
Hgb 8.1 L
Hct 25.4 L
Plt Count 140
Sodium 138
Potassium 3.7
Chloride 107
Carbon Dioxide 23
BUN 26 H
Creatinine 1.3
Glucose 97
Calcium 8.2 L
Total Bilirubin 0.7
AST 41
ALT 23
Alkaline Phosphatase 75
Vital Signs:
Vital Signs
Temp Pulse Resp BP Pulse Ox
97.7 F 71 20 116/55 93
06/20/24 07:40 06/20/24 08:36 06/20/24 07:40 06/20/24 08:36 06/20/24 07:40
I&O
06/19/24 06/20/24 06/21/24
06:59 06:59 06:59
Intake Total 1440 / 1440 840 / 840
Output Total 500 / 500 400 / 400
Balance 940 / 940 440 / 440
--- NOTE | 2024-06-20 10:39 | W.DCSUMMARY ---
Discharge Summary
Discharge Data
Date of Admission: 06/17/24
Date of Discharge: 06/20/24
-
Pending Results: No
Hospital Course
84-year-old male with past medical history of hypertension, CKD, pleural effusion status post Pleurx catheter, ischemic cardiomyopathy, CHF, paroxysmal atrial fibrillation, hyperlipidemia, abdominal aortic aneurysm came to the hospital with GI
bleed. Eliquis was held throughout hospitalization. Patient was seen by gastroenterology and cardiology. Patient and family chose to not pursue any further GI scope and was okay to discontinue Eliquis at this time. Patient bleeding stopped on
its own while he was here and his hemoglobin was stable prior to discharge. Patient and family also met palliative care however was not ready for hospice and wanted to follow-up with palliative care outpatient. While patient was here in the
hospital he required Pleurx catheter drainage by IR. On discharge he was instructed to resume his routine regimen of Pleurx drainage outpatient. Once patient symptoms continue to improve, he was then discharged home with instructions to follow-up
with all his physicians outpatient.
Discharge Plan
-
Patient Disposition: Home with Home Care
Discharge Diagnosis/Procedures: GI bleed
Acute blood loss anemia on chronic anemia
Recurrent pleural effusion with Acept catheter
Diet: As tolerated
Activity: As tolerated
Driving Restrictions: As prior to admission
Bathing Restrictions: None
Blood Work: Repeat CBC next week with primary care provider
Other Services: VN
Specialty Instructions: Weigh Daily- Call MD for wt gain/loss 3 lbs overnight/5 lbs in 1 week
Activity Restrictions/Additional Instructions:
Resume your Asept drainage routine that you were on prior to coming to the hospital.
Instructions: *[facility] Heart Failure Instructions
Referrals:
Donte Verdin MD [Active] - 06/27/24 10:40 am (You have a cardiology follow-up appointment at the [place] office. Please call with questions)
Robert Elias DO [Active] - (follow up next week as planned)
Santino Lopez MD [Family Provider] - in less than 1 week
Prescriptions:
New
hydrocortisone 2.5 % Cream
1 applic topical BID Qty: 30 0RF
Continued
atorvastatin 20 mg Tablet
20 mg PO HS
docusate sodium [Stool Softener] 100 mg Capsule
100 mg PO HS
melatonin 10 mg Tablet
10 mg PO HS
metoprolol succinate 25 mg tablet extended release 24 hr
25 mg PO HS
therapeutic multivitamin Tablet
1 tab PO DAILY
pantoprazole [Protonix] 40 mg tablet,delayed release (DR/EC)
40 mg PO BID
ferrous sulfate 325 mg (65 mg iron) tablet
325 mg PO DAILY Qty: 30 0RF
furosemide 40 mg Tablet
60 mg PO MOWEFR
furosemide 40 mg tablet
40 mg PO SUTUTHSA
Discontinued
Eliquis 2.5 mg Tablet
2.5 mg PO BID
Patient Comments:
06/17/24: Did not take medication yesterday due to symptoms.
Discharge Orders:
Discharge Patient (As Directed); Ordered 06/20/24
Ordered By: Ricky Lundberg
Discharge Date and Time
Discharge Date/Time: 06/20/24 14:25
Print Language: GUAMANIAN
--- NOTE | 2024-06-20 11:02 | CM ---
Plan is for patient to d/c today after pleuryx drainage.
CM met w/ patient bedside who is aware of d/c today, agreeable. Daughter will transport home
IMM verbally reviewed w/ patient, copy provided, copy placed in chart
Patient is current w/ [facility]. Resume services at d/c
Plan: Home w/ [facility]
[2024-06-20 11:40] VITALS: BP 118/52
--- NOTE | 2024-06-20 12:03 | PN.IRAD.UPD ---
Update Note - IRAD
- -
Right Asept drained bedside. 1000ml of yellow/chylous fluid drained. Site cleaned and dressed.
== END 2024-06-20 14:25 | disposition home health service (06) | DRG 378 ==
LOC: 4 EAST ACU 18:13
PROVIDERS: Clinical Nurse Specialist Family Health; Emergency Medicine; Nurse Practitioner Adult Health; ADMITTING PHYSICIAN Internal Medicine; ATTENDING PHYSICIAN Internal Medicine; CONSULT PHYSICIAN Specialist; EMERGENCY PHYSICIAN Emergency Medicine; FAMILY PHYSICIAN Family Medicine; OTHER PHYSICIAN Internal Medicine Cardiovascular Disease; OTHER PHYSICIAN Nurse Practitioner Gerontology
DX: K31.811 Angiodysplasia of stomach and duodenum with bleeding (principal); D62 Acute posthemorrhagic anemia; I13.0 Hypertensive heart and chronic kidney disease with heart failure and stage 1 through stage 4 chronic kidney disease, or unspecified chronic kidney disease; I50.42 Chronic combined systolic (congestive) and diastolic (congestive) heart failure; E87.1 Hypo-osmolality and hyponatremia; J98.11 Atelectasis; D68.32 Hemorrhagic disorder due to extrinsic circulating anticoagulants; J90 Pleural effusion, not elsewhere classified; I42.8 Other cardiomyopathies; Z87.891 Personal history of nicotine dependence; Z79.01 Long term (current) use of anticoagulants; I48.0 Paroxysmal atrial fibrillation; K57.30 Diverticulosis of large intestine without perforation or abscess without bleeding; K64.8 Other hemorrhoids; N18.32 Chronic kidney disease, stage 3b; E78.00 Pure hypercholesterolemia, unspecified; G47.00 Insomnia, unspecified; Z51.5 Encounter for palliative care; I71.40 Abdominal aortic aneurysm, without rupture, unspecified; I25.5 Ischemic cardiomyopathy; L29.9 Pruritus, unspecified; Z79.899 Other long term (current) drug therapy; Z80.0 Family history of malignant neoplasm of digestive organs; Z86.79 Personal history of other diseases of the circulatory system; Z95.0 Presence of cardiac pacemaker
CPT/HCPCS: 71046; 76770; 80053; 85014; 85018; 85025; 85610; 85730; 86850; 86900; 86901; 93005; 96361; 96374; 97116; 97162; 97165; 97530; 99285